=== PATIENT | female | born 1945 | race Caucasian/White ===

== ENCOUNTER 2020-03-06 07:32 | Emergency (ER) | payer OTHER, SELFPAY ==
[2020-03-06 07:44] VITALS: BP 167/86; PULSE 86; RESP 18; TEMP 36.5; O2SAT 95; BMI 21.7
[2020-03-06 07:53] VITALS: BP 163/88; PULSE 74; O2SAT 95
--- NOTE | 2020-03-06 07:59 | ECG_ITS ---
[facility] Test Date: 2020-03-06 Pat Name: Tram Macdonald Department: Room: Gender: Female Online Marketing Coordinator: : 1945 Requested By: Manuela Maki Order Number: [id number] Noni MD: Angela Valentin M.D. Measurements Intervals Roland Rate: 65 P: 84 ME: 207 QRS: -72 QRSD: 130 T: 78 QT: 389 QTc: 405 Interpretive Statements SINUS RHYTHM WITH SINUS ARRHYTHMIA LEFT ANTERIOR FASCICULAR BLOCK [QRS AXIS <= -45, QR IN I, RS IN II] LEFT VENTRICULAR HYPERTROPHY AND ST-T CHANGE [VOLTAGE CRITERIA PLUS ST/T ABNORMALITY] Compared to ECG 11/09/2018 14:44:04 Left anterior fascicular block now present Intraventricular conduction delay no longer present Myocardial infarct finding no longer present ST (T wave) deviation still present Electronically Signed On 03-07-2020 8:26:49 CDT by Angela Valentin M.D. [id number]
--- NOTE | 2020-03-06 08:07 | XRR_ITS ---
PROCEDURE INFORMATION: Exam: XR Chest, 1 View Exam date and time: 03/06/2020 8:39 AM Age: 75 years old Clinical indication: Patient HX: C/O shortness of breath; N/v. Covid + TECHNIQUE: Imaging protocol: XR of the chest Views: 1 view. COMPARISON: CR Chest 1 [place] [id number] 06/28/2014 4:04 AM FINDINGS: Lungs: COPD and interstitial prominence, without acute airspace disease. Pleural space: No pleural effusion. Heart/Mediastinum: No cardiomegaly. Bones/joints: Degenerative change. XR/XR chest 1V portable [id number] IMPRESSION: COPD and interstitial prominence, without acute airspace disease.
--- NOTE | 2020-03-06 08:17 | ED_ITS ---
HPI - General Adult General: Chief complaint: General Medical Stated complaint: COVID+ , SOB N/V Time Seen by Provider: 03/06/20 07:40 History of Present Illness: HPI narrative: This patient is a 75-year-old female who presents today with complaints of weakness, nausea, jitteriness. She has a history of dementia and is accompanied here by her . Her tells me that they both tested positive for COVID on the . They had been sick for a few days before that. He has had very mild symptoms and the patient also has had pretty mild symptoms until today. He tells me that they were tested in [place]. The doctor that called him to give him the test results put them both on prednisone and also put the patient on amoxicillin. The prescription for prednisone is 10 mg tablets and he said for the first couple days they were taking 20 mg 3 times a day. He does not know why they put her on the amoxicillin. She had been doing okay until this morning when she woke up with the symptoms noted above. She denies shortness of breath. She really has not had much cough. Her oxygen saturation is 96% on room air during my history. She is fairly healthy. She has a history of some mild COPD but does not use home oxygen. Onset (ago): hour(s) (Presenting symptoms only started this morning) Associated symptoms: Reports malaise, nausea and weakness; Deny chest pain, cough, dyspnea, headache(s), rash or short of breath Review of Systems General: Reports: 10 or more systems reviewed and unremarkable except in HPI and below Const: Reports: malaise Eyes: Denies: change in vision ENMT: Denies: odynophagia Card: Denies: chest pain or swelling of feet/ankles Resp: Denies: dyspnea GI: Reports: nausea : Denies: flank pain or difficulty voiding Musc: Denies: neck pain or back pain Skin/Breast: Denies: rash Neuro: Denies: headache(s), numbness in extremities or weakness in extremities Antonio/Lymph: Denies: easy bruising or easy bleeding [facility] ED PFSH: Medical History (Updated 03/06/20 @ 11:29 by Manuela Alford MD) Alzheimer's dementia COPD (chronic obstructive pulmonary disease) Hypertension Social History Smoking and tobacco status: never smoked Alcohol intake: never Substance/Drug Use: never Physical Exam Const: COMMON NORMALS: no acute distress, patient oriented x3, no limitations and alert GENERAL APPEARANCE: cooperative and comfortable HENMT: HEAD & SCALP: normal to inspection FACE & SINUS: normal facial exam Eye: GENERAL EYE: appearance normal, both eyes and all related structures Neck/C-Spine: COMMON NORMALS: supple, no meningeal signs and no JVD Chest: COMMONS NORMALS: normal inspection of the chest Resp: COMMON NORMALS: normal respiratory effort, No use of accessory muscles and clear to auscultation bilaterally AUSCULTATION: clear to auscultation bilaterally Cardio: COMMON NORMALS: no JVD, regular rate, regular rhythm and No murmurs present (Cardio) RATE: regular rate RHYTHM: regular rhythm GI: COMMON NORMALS: Normal to inspection, nondistended, normoactive bowel sounds present, Soft to palpation and non-tender INSPECTION: Yes normal to inspection AUSCULTATION: Yes normoactive bowel sounds PALPATION: Yes Soft to palpation Back/Pelvis: COMMON NORMALS: thoracic and lumbar spine normal to inspection Extremity: COMMON NORMALS: normal to inspection Neuro: COMMON NORMALS: patient oriented x3, moves all extremities, no focal motor deficits and no sensory deficits noted SENSORIUM/ORIENTATION: Yes alert MENINGEAL SIGNS: Yes no meningeal signs Psych: COMMON NORMALS: mental status grossly normal, cooperative and normal affect Skin: COMMON NORMALS: no rashes or lesions noted and turgor normal GENERAL SKIN EXAM: no rashes or lesions noted and turgor normal Course ED course: This patient is doing extremely well from a COVID perspective. Her oxygen saturations are good. Her chest x-ray is good. Work-up was negative for any signs of cardiac ischemia. She feels jittery and has some discomfort in her epigastrium. I suspect this is related to the prednisone and I have asked her to stop it. She will follow-up with her primary care doctor. We also discussed things to watch for as far as worsening with the COVID. Vital Signs: Vital signs: Vital Signs Temperature 97.7 F 03/06/20 07:44 Pulse Rate 98 03/06/20 11:49 Respiratory Rate 18 03/06/20 11:49 Blood Pressure 114/89 03/06/20 11:49 Pulse Oximetry 91 03/06/20 11:49 [facility] - General Adult Lab Data: Labs: Lab Results 03/06/20 03/06/20 03/06/20 Range/Units 09:00 09:00 09:14 WBC 7.8 (4.0-10.0) 10^3/ uL RBC 4.50 (4.1-5.3) 10^6/u L Hgb 13.3 (11.5-15.3) g/dL Hct 38.6 (37.0-47.0) % MCV 85.8 (81-99) fL MCH 29.6 (28.0-34.0) pg MCHC 34.5 (30.0-36.0) g/dL RDW 11.9 L (12.1-15.1) % Plt Count 261 (130-400) 10^3/c mm MPV 8.5 (7.4-10.4) fL Neut % (Auto) 62.7 % Lymph % (Auto) 25.7 % [place] % (Auto) 10.8 % Eos % (Auto) 0.3 % Baso % (Auto) 0.1 % Neut # (Auto) 4.86 (1.8-7.7) 10^3/u L Lymph # (Auto) 2.0 (0.8-4.8) 10^3/u L [place] # (Auto) 0.8 (0.2-0.9) 10^3/u L Eos # (Auto) 0.0 (0.0-0.8) 10^3/u L Baso # (Auto) 0.0 (0.0-0.1) 10^3/u L Nucleated RBC % (a uto) 0 % Nucleated RBCs # 0.0 /100WBC PT 13.00 (12.1-14.9) SECO NDS INR 0.95 (0.8-1.2) D-Dimer 0.51 (0-0.59) ug/mIFE U Sodium Cancelled Potassium Cancelled Chloride Cancelled Carbon Dioxide Cancelled Anion Gap Cancelled BUN Cancelled Creatinine Cancelled GFR Calculation Cancelled Glucose Cancelled Calculated Osmolal ity Cancelled Lactic Acid (0.5-2.2) mmol/L Calcium Cancelled Total Bilirubin Cancelled AST Cancelled ALT Cancelled Alkaline Phosphata se Cancelled C-Reactive Protein Cancelled NT-Pro-B Natriuret Pep Cancelled Total Protein Cancelled Albumin Cancelled Globulin Cancelled Procalcitonin Cancelled 03/06/20 03/06/20 Range/Units 09:14 09:14 WBC (4.0-10.0) 10^3/ uL RBC (4.1-5.3) 10^6/u L Hgb (11.5-15.3) g/dL Hct (37.0-47.0) % MCV (81-99) fL MCH (28.0-34.0) pg MCHC (30.0-36.0) g/dL RDW (12.1-15.1) % Plt Count (130-400) 10^3/c mm MPV (7.4-10.4) fL Neut % (Auto) % Lymph % (Auto) % [place] % (Auto) % Eos % (Auto) % Baso % (Auto) % Neut # (Auto) (1.8-7.7) 10^3/u L Lymph # (Auto) (0.8-4.8) 10^3/u L [place] # (Auto) (0.2-0.9) 10^3/u L Eos # (Auto) (0.0-0.8) 10^3/u L Baso # (Auto) (0.0-0.1) 10^3/u L Nucleated RBC % (a uto) % Nucleated RBCs # /100WBC PT (12.1-14.9) SECO NDS INR (0.8-1.2) D-Dimer (0-0.59) ug/mIFE U Sodium 136 Potassium 3.4 L Chloride 97 L Carbon Dioxide 23 Anion Gap 19.4 H BUN 7 L Creatinine 0.6 GFR Calculation Not Reportable Glucose 154 H Calculated Osmolal ity 283 L Lactic Acid 2.2 (0.5-2.2) mmol/L Calcium 8.9 Total Bilirubin 0.5 AST 15 ALT 17 Alkaline Phosphata se 72 C-Reactive Protein 1.7 NT-Pro-B Natriuret Pep 560 H Total Protein 7.1 Albumin 4.1 Globulin 3.0 Procalcitonin 0.06 Discharge Plan Discharge Patient Disposition: Home Clinical Impression: COVID-19 Condition: Stable Prescriptions: No Action nifedipine 30 mg tablet extended release 24hr 30 mg PO DAILY RF: 0 amoxicillin 500 mg capsule 1,000 mg PO TID RF: 0 propafenone 150 mg tablet 150 mg PO TID RF: 0 promethazine-DM 6.25-15 mg/5 mL syrup 5 ml PO Q6H PRN (Reason: Cough) RF: 0 prednisone 10 mg tablet 10 mg PO DIRECTED RF: 0 cyanocobalamin (vitamin B-12) 1,000 mcg/mL solution 1,000 mcg IM Q30D RF: 0 Synthroid 150 mcg tablet 150 mcg PO DAILY RF: 0 digoxin 125 mcg (0.125 mg) tablet 125 mcg PO DAILY RF: 0 memantine 10 mg tablet 10 mg PO BID RF: 0 Dulera 200-5 mcg/actuation HFA aerosol inhaler 2 puff INHALATION BID RF: 0 aspirin 81 mg Tablet,Chewable 81 mg PO DAILY RF: 0 Discharge Orders: Discharge Order (Routine); Ordered 03/06/20 Ordered By: Manuela Alford Discharge Diet: Usual diet Discharge Activity: Resume usual activity Patient Instructions: Viral Syndrome - Adult Activity Restrictions/Additional Instructions: Continue your regular medications. Stop taking the prednisone as that may be causing your symptoms. Return to the ED if increasing shortness of breath or any other new or worsening symptoms. Follow-up with your primary care doctor as recommended. Discharge Date/Time: 03/06/20 11:52 Coding Level of Care Code ED Acquisition Consultant for Kasey Fwmarc Exam Comprehensive
[2020-03-06 09:10] LABS: Basophils % 0.1 %; Eosinophils % 0.3 %; Hematocrit 38.6 % (37.0-47.0); Hemoglobin 13.3 g/dL (11.5-15.3); Lymphocytes % 25.7 %; Mean Corpuscular HGB Conc 34.5 g/dL (30.0-36.0); Mean Corpuscular Hemoglobin 29.6 pg (28.0-34.0); Mean Corpuscular Volume 85.8 fL (81-99); Mean Platelet Volume 8.5 fL (7.4-10.4); Monocytes # 0.8 10^3/uL (0.2-0.9); Monocytes % 10.8 %; Neutrophils # 4.86 10^3/uL (1.8-7.7); Neutrophils % 62.7 %; Nucleated Red Blood Cells % 0 %; Platelet Count 261 10^3/cmm (130-400); Red Cell Distribution Width 11.9 % (12.1-15.1); White Blood Count 7.8 10^3/uL (4.0-10.0)
[2020-03-06 09:50] LABS: Lactic Sepsis W/Reflex 2.2 mmol/L (0.5-2.2)
[2020-03-06 09:56] LABS: INR 0.95 (0.8-1.2)
[2020-03-06 09:58] LABS: NT Pro B Type Natriuretic Pept 560 pg/mL (0-450); Procalcitonin 0.06 ng/mL (0-0.5)
[2020-03-06 09:59] LABS: D Dimer 0.51 ug/mIFEU (0-0.59)
[2020-03-06 10:09] LABS: Alanine Aminotransferase 17 U/L (0-33); Albumin Level 4.1 g/dL (3.5-5.2); Alkaline Phosphatase 72 IU/L (35-105); Anion Gap 19.4 (5-19); Aspartate Amino Transferase 15 U/L (0-32); Blood Urea Nitrogen 7 mg/dL (8-23); C Reactive Protein 1.7 mg/L (0.0-4.9); Calcium 8.9 mg/dL (8.5-10.5); Carbon Dioxide 23 mmol/L (22-29); Chloride 97 mmol/L (98-107); Glucose 154 mg/dL (65-115); Osmolality Calculated 283 mOsm/kg (285-295); Potassium 3.4 mmol/L (3.5-5.1); Sodium 136 mmol/L (136-145); Total Bilirubin 0.5 mg/dL (0.15-1.2); Total Protein 7.1 g/dL (6.6-8.7)
[2020-03-06 10:19] VITALS: BP 159/73; PULSE 73; RESP 18; O2SAT 95
[2020-03-06 11:20] LABS: Reflex Lactate Order REFLEX LACTIC ORDERD
[2020-03-06 11:49] VITALS: BP 114/89; PULSE 98; RESP 18; O2SAT 91
== END 2020-03-06 11:52 | disposition home or self-care (01) ==
PROVIDERS: Emergency Provider Emergency Medicine
DX: U07.1 COVID-19 (principal); Z79.82 Long term (current) use of aspirin; G30.9 Alzheimer's disease, unspecified; F02.80 Dementia in other diseases classified elsewhere, unspecified severity, without behavioral disturbance, psychotic disturbance, mood disturbance, and anxiety
CPT/HCPCS: 12345; 36415; 71045; 80053; 83605; 83880; 84145; 85025; 85378; 85610; 86140; 87040; 93005; 99283; 99284

== ENCOUNTER 2021-11-25 19:47 | Emergency (ER) | payer OTHER, SELFPAY ==
[2021-11-25 20:11] VITALS: BP 124/71; PULSE 62; RESP 12; TEMP 36.4; O2SAT 97; BMI 18.4
--- NOTE | 2021-11-25 21:45 | XRR_ITS ---
PROCEDURE INFORMATION: Exam: XR Chest Exam date and time: 11/25/2021 10:16 PM Age: 76 years old Clinical indication: Cough TECHNIQUE: Imaging protocol: XR of the chest. Views: 1 view. COMPARISON: CR XR chest 1V portable [id number] 03/06/2020 8:44 AM FINDINGS: Lungs: Unremarkable. No consolidation. Pleural spaces: Unremarkable. No pleural effusion. No pneumothorax. Heart/Mediastinum: Unremarkable. No cardiomegaly. Bones/joints: Unremarkable. XR/XR chest 1V portable [id number] IMPRESSION: No acute findings.
--- NOTE | 2021-11-25 21:46 | W.ED.GENADLT ---
HPI - General Adult General: Chief complaint: General Medical Stated complaint: fb in throat Time Seen by Provider: 11/25/21 21:39 Source: patient Mode of arrival: ambulatory Limitations: no limitations History of Present Illness: 76-year-old female who states that she was eating hamburger and states it feels like she may have had something stuck. States she also had coughing but had a cough last 2 weeks denies any shortness of breath states she still feels like there may be something stuck in her throat she has not tried to eat or drink anything though. Denies any vomiting. Associated symptoms: Deny chest pain, headache(s), nausea, rash or vomiting Review of Systems Const: Denies: fever(s), chills, body aches or change in appetite Eyes: Denies: blurry vision or eye discomfort ENMT: Reports: throat pain and odynophagia Card: Denies: chest pain Resp: Reports: non-productive cough GI: Denies: abdominal pain, nausea, vomiting or diarrhea : Denies: dysuria Musc: Denies: neck pain or back pain Skin/Breast: Denies: rash Neuro: Denies: headache(s) Psych: Denies: depression Antonio/Lymph: Denies: easy bruising All/Imm: Denies: urticaria PFSH ED PFSH: Medical History Alzheimer's dementia COPD (chronic obstructive pulmonary disease) Hypertension Social History Smoking and tobacco status: never smoked Alcohol intake: never Physical Exam Const: COMMON NORMALS: no acute distress, patient oriented x3 and healthy appearing HENMT: COMMON NORMALS: normocephalic and atraumatic HEAD & SCALP: normocephalic and atraumatic Eye: COMMON NORMALS: Equal, round and reactive pupils present and EOMs intact bilaterally PUPIL: Yes Equal, round and reactive pupils present Neck/C-Spine: COMMON NORMALS: full ROM and supple Chest: COMMONS NORMALS: normal inspection of the chest and normal palpation of entire chest wall Resp: COMMON NORMALS: normal respiratory effort, No retractions, No use of accessory muscles and clear to auscultation bilaterally AUSCULTATION: clear to auscultation bilaterally Cardio: COMMON NORMALS: regular rate, regular rhythm and No murmurs present (Cardio) RATE: regular rate RHYTHM: regular rhythm GI: COMMON NORMALS: Normal to inspection, nondistended, normoactive bowel sounds present, Soft to palpation, non-tender and no masses PALPATION: Yes Soft to palpation Extremity: COMMON NORMALS: normal to inspection and full ROM Neuro: COMMON NORMALS: patient oriented x3, moves all extremities and no focal motor deficits Psych: COMMON NORMALS: mental status grossly normal, Normal thought process present and cooperative THOUGHT PROCESS: Normal thought process present Skin: COMMON NORMALS: no rashes or lesions noted and no wounds GENERAL SKIN EXAM: no rashes or lesions noted Course Vital Signs: Vital signs: Vital Signs Temperature 97.6 F 11/25/21 20:11 Pulse Rate 71 11/25/21 22:00 Respiratory Rate 18 11/25/21 21:51 Blood Pressure 114/59 11/25/21 22:00 Pulse Oximetry 96 11/25/21 22:00 MDM - General Adult Medical Decision Making Patient presents here with globus sensation in her throat she is concerned she could have had a foreign body CT here shows no signs of foreign body she does feel improved he should be able to swallow liquids out any problem. She has had a chronic cough chest x-ray is normal as well she is stable for discharge is to follow-up PCP and return if worsening she understands agrees to plan. Lab Data Radiology Impressions Chest X-Ray 11/25/21 21:45 IMPRESSION: No acute findings. Neck CT 11/25/21 22:41 IMPRESSION: No acute findings. There is no evidence for foreign body. Discharge Plan Discharge Patient Disposition: Home Clinical Impression: Globus sensation Condition: Stable Prescriptions: No Action cephalexin 500 mg capsule 500 mg PO TID 10 Days Qty: 30 0RF nifedipine 30 mg tablet extended release 24hr 30 mg PO DAILY 0RF amoxicillin 500 mg capsule 1,000 mg PO TID 0RF Rx Instructions: x 5 days propafenone 150 mg tablet 150 mg PO TID 0RF promethazine-DM 6.25-15 mg/5 mL syrup 5 ml PO Q6H PRN (Reason: Cough) 0RF prednisone 10 mg tablet 10 mg PO DIRECTED 0RF cyanocobalamin (vitamin B-12) 1,000 mcg/mL solution 1,000 mcg IM Q30D 0RF Synthroid 150 mcg tablet 150 mcg PO DAILY 0RF digoxin 125 mcg (0.125 mg) tablet 125 mcg PO DAILY 0RF memantine 10 mg tablet 10 mg PO BID 0RF Dulera 200-5 mcg/actuation HFA aerosol inhaler 2 puff INHALATION BID 0RF aspirin 81 mg Tablet,Chewable 81 mg PO DAILY 0RF Discharge Orders: Discharge ED (Routine); Ordered 11/25/21 Ordered By: Kait Norris Referrals: Matias,SILVIA MendozaN [Primary Care Provider] - 1-3 days Discharge Diet: Advance as tolerated Discharge Activity: Use walker/crutches as instructed Patient Instructions: Dysphagia (ED) Coding Level of Care Code ED Skiver Machine Operator for Chg Fwd Exam Comprehensive
[2021-11-25 21:51] VITALS: BP 142/78; PULSE 65; RESP 18; O2SAT 97
[2021-11-25] MEDS: nitroglycerin 0.4 mg sublingual Tablet SUBLINGUAL (21:54)
[2021-11-25 22:00] VITALS: BP 114/59; PULSE 71; O2SAT 96
--- NOTE | 2021-11-25 22:41 | CTR_ITS ---
PROCEDURE INFORMATION: Exam: CT Neck Without Contrast Exam date and time: 11/25/2021 11:06 PM Age: 76 years old Clinical indication: Other: Fb; Patient HX: Patient states feels like a piece of bread she ate is stuck in her throat. ; Additional info: Fb sensation in throat after eating TECHNIQUE: Imaging protocol: Computed tomography images of the neck without contrast. Radiation optimization: All CT scans at this facility use at least one of these dose optimization techniques: automated exposure control; mA and/or kV adjustment per patient size (includes targeted exams where dose is matched to clinical indication); or iterative reconstruction. COMPARISON: CR (CHEST, ) 11/25/2021 10:16 PM RADIATION DOSE METRICS: Total DLP (mGy-cm): 251.67 FINDINGS: Pharynx: Unremarkable. No significant tonsillar enlargement. Larynx: Unremarkable. Epiglottis is normal. Prevertebral and retropharyngeal spaces: Unremarkable. Parotid and submandibular glands: Normal. Glands are normal in size. Thyroid: Normal. No enlarged or calcified nodules. Lymph nodes: Unremarkable. No lymphadenopathy. Trachea: Visualized trachea is unremarkable. Lungs: Unremarkable as visualized. Bones/joints: Unremarkable. No acute fracture. Soft tissues: Unremarkable. No significant soft tissue swelling. CT/CT neck wo con [id number] IMPRESSION: No acute findings. There is no evidence for foreign body.
[2021-11-25 23:30] VITALS: BP 118/67; PULSE 66; RESP 18; O2SAT 95
== END 2021-11-25 23:31 | disposition home or self-care (01) ==
PROVIDERS: Emergency Provider Emergency Medicine; PCP Nurse Practitioner Family
DX: F45.8 Other somatoform disorders (principal); R05.9 Cough, unspecified
CPT/HCPCS: 70490; 71045; 96372; 99283; J1610

== ENCOUNTER 2022-01-12 15:53 | Outpatient (CLI) | payer OTHER, SELFPAY ==
--- NOTE | 2022-01-12 15:59 | CT_ITS ---
WS: [id number] CT NECK TECHNIQUE: Contrast-enhanced CT of the neck with coronal and sagittal reformatted images. CLINICAL INFORMATION: DYSPHAGIA COMPARISON: November 25, 2021 DLP: 151.[address] scans at [facility] use at least one of these dose optimization techniques: automated e xposure control; mA and/or kV adjustment per patient size (includes targeted exams where dose is matc hed to clinical indication); or iterative reconstruction. FINDINGS: Dental artifact degrades images at the tongue base. Normal parotid glands. Normal submandibular gland s. Normal posterior nasopharynx. Normal parapharyngeal fat. No evidence of supraglottic or glottic ma ss. Normal piriform sinuses. Normal vocal folds and vocal cords. Subglottic airway is patent. No airw ay narrowing. Mastoid air cells are aerated. Partially visualized paranasal sinuses are well aerated. No cervical l ymphadenopathy. Emphysematous changes in the lung apices. Mild spondylitic changes cervical spine. Mi ld disc bulging C3-C4 and C4-C5. CT/CT neck w con* [id number] IMPRESSION: 1. No evidence of supraglottic or glottic mass. Subglottic airway is patent. N o airway narrowing. 2. Normal posterior nasopharynx and parapharyngeal fat. 3. No cervical lymphadenopathy. 4. No suspicious findings. 5. No changes since November 25, 2021.
[2022-01-12 16:39] LABS: Blood Urea Nitrogen 10 mg/dL (8-23)
[2022-01-12] MEDS: iohexol 350 mg/mL 100 mL Btl IV (16:59)
== END 2022-01-12 15:54 | disposition home or self-care (01) ==
PROVIDERS: PCP Nurse Practitioner Family; Visit Provider Specialist
DX: R13.10 Dysphagia, unspecified (principal)
CPT/HCPCS: 70491; 82565; 84520

== ENCOUNTER 2022-01-14 10:00 | Outpatient (CLI) | payer OTHER, SELFPAY ==
--- NOTE | 2022-01-14 10:17 | FL_ITS ---
WS: [id number] Exam: FL barium swallow modifd [id number] Date/Time of Exam: 01/14/2022 11:22 AM Reason For Exam: Other dysphagia Fluoroscopy time: 3min [id number] minutes # of spot films: 1 Modified barium swallow is performed in conjunction with the speech therapy service. The patient experienced mild laryngeal penetration when ingesting thin liquid barium. No aspiration w as noted. The patient tolerated nectar consistency, pudding consistency and solid barium mixture food stuffs without difficulty. The patient ingested the barium pill without complication. Mild dysfunctio n at the level of the oropharynx initiating the swallowing process. FL/FL barium swallow modifd [id number] IMPRESSION: 1. The patient experienced mild penetration into the laryngeal inlet when inges ting thin liquid barium. Mild dysfunction at the level of the oropharynx initia ting the swallowing process. 2. No aspiration and no other significant finding. A separate report of recommendations and findings will follow from the speech t herapy department.
== END 2022-01-14 10:01 | disposition home or self-care (01) ==
PROVIDERS: PCP Nurse Practitioner Family; Visit Provider Specialist
DX: R13.19 Other dysphagia (principal)
CPT/HCPCS: 74230; 92611

== ENCOUNTER 2022-01-27 08:00 | Outpatient (CLI) | payer OTHER, SELFPAY ==
--- NOTE | 2022-01-27 08:18 | FL_ITS ---
WS: [id number] FL barium swallow [id number] REASON FOR EXAM: DYSPHAGIA FLUOROSCOPY TIME: 2min [id number] # OF SPOT FILMS: 6 TECHNIQUE: Swallowing of barium was evaluated with the patient in the upright and prone LOU positions. Multiple swallows were evaluated fluoroscopically and with multiple rapid sequence spot films to evaluate aly lity. FINDINGS: Normal function of the oral and hypopharynx with no aspiration. Intermittent loss of the primary peristaltic wave in the esophagus with retention of contrast and occ asional retrograde reflux. Intermittent tertiary contractions. Retained barium was cleared with addit ional dry swallows. Small sliding hiatal hernia with no significant Schatzki ring and no stricture. No significant reflux elicited. FL/FL barium swallow [id number] IMPRESSION: Mild to moderate esophageal dysmotility as above.
== END 2022-01-27 08:01 | disposition home or self-care (01) ==
LOC: RAD 08:02
PROVIDERS: PCP Nurse Practitioner Family; Visit Provider Specialist
DX: R13.10 Dysphagia, unspecified (principal)
CPT/HCPCS: 74220

== ENCOUNTER 2022-02-08 17:02 | Inpatient (IN) | payer MEDICARE, SELFPAY ==
[2022-02-08] VITALS (12 sets, daily range): BP systolic 103–117; BP diastolic 41–68; PULSE 59–81; RESP 15–24; TEMP 36.4–37; O2SAT 96–99
--- NOTE | 2022-02-08 17:10 | XRR_ITS ---
PROCEDURE INFORMATION: Exam: XR Right Knee Exam date and time: 02/08/2022 5:57 PM Age: 76 years old Clinical indication: Injury or trauma; Fall; Blunt trauma; Hip and knee; Right; Additional info: Trauma/fall TECHNIQUE: Imaging protocol: Radiologic exam of the Right knee. Views: 3 views. COMPARISON: No relevant prior studies available. FINDINGS: Bones/joints: Normal. No knee effusion. Soft tissues: Normal. Vasculature: Arterial calcifications. XR/XR knee RT 3V* [id number] IMPRESSION: No acute findings.
--- NOTE | 2022-02-08 17:10 | XRR_ITS ---
PROCEDURE INFORMATION: Exam: XR Right Hip Exam date and time: 02/08/2022 5:54 PM Age: 76 years old Clinical indication: Injury or trauma; Fall; Blunt trauma (contusions or hematomas) and fracture of pelvis & hip; Right; Traumatic fracture; Neck of femur; Not specified; Additional info: Trauma/fall TECHNIQUE: Imaging protocol: Radiologic exam of the Right hip. Views: 1 view hip with pelvis when performed. COMPARISON: CT kidney stone [id number] 06/09/2017 12:29 AM FINDINGS: Bones/joints: Comminuted displaced right intertrochanteric femur fracture with varus angulation. Soft tissues: Unremarkable. Gastrointestinal tract: Radiopaque material within the appendix and distal colon. XR/XR hip RT 2-3V wo/w pel* [id number] IMPRESSION: 1. Comminuted displaced right intertrochanteric femur fracture.
--- NOTE | 2022-02-08 17:11 | CTR_ITS ---
PROCEDURE INFORMATION: Exam: CT Head Without Contrast Exam date and time: 02/08/2022 5:57 PM Age: 76 years old Clinical indication: Injury or trauma; Fall; Blunt trauma (contusions or hematomas) TECHNIQUE: Imaging protocol: Computed tomography of the head without contrast. Radiation optimization: All CT scans at this facility use at least one of these dose optimization techniques: automated exposure control; mA and/or kV adjustment per patient size (includes targeted exams where dose is matched to clinical indication); or iterative reconstruction. COMPARISON: CT neck w con* [id number] 01/12/2022 4:49 PM RADIATION DOSE METRICS: Total DLP (mGy-cm): 936.38 FINDINGS: Brain: There is moderate cerebral atrophy. No significant white matter disease. No intracranial hemorrhage. No intracranial mass. Negative for midline shift of brain. Negative for mass effect on the brain. Left parietal lobe subcortical white matter encephalomalacia. Cerebral ventricles: No ventriculomegaly. Paranasal sinuses: Visualized sinuses are unremarkable. No fluid levels. Mastoid air cells: Visualized mastoid air cells are well aerated. Bones/joints: Unremarkable. No acute fracture. Soft tissues: Unremarkable. CT/CT head wo con* [id number] IMPRESSION: Negative for acute intracranial abnormality.
--- NOTE | 2022-02-08 17:11 | CTR_ITS ---
PROCEDURE INFORMATION: Exam: CT Cervical Spine Without Contrast Exam date and time: 02/08/2022 5:59 PM Age: 76 years old Clinical indication: Injury or trauma; Fall; Blunt trauma; Additional info: Trauma/fall TECHNIQUE: Imaging protocol: Computed tomography of the cervical spine without contrast. Radiation optimization: All CT scans at this facility use at least one of these dose optimization techniques: automated exposure control; mA and/or kV adjustment per patient size (includes targeted exams where dose is matched to clinical indication); or iterative reconstruction. COMPARISON: CT neck w con* [id number] 01/12/2022 4:49 PM RADIATION DOSE METRICS: Total DLP (mGy-cm): 155.17 FINDINGS: Bones/joints: No acute fracture. Normal alignment. Discs/Spinal canal/Neural foramina: The cervical spine demonstrates moderate degenerative changes at multiple levels. Lungs: Lung apices are normal. Soft tissues: Unremarkable. CT/CT cervical spin wo con* [id number] IMPRESSION: Negative for acute cervical spine injury.
--- NOTE | 2022-02-08 17:11 | XRR_ITS ---
PROCEDURE INFORMATION: Exam: XR Chest Exam date and time: 02/08/2022 6:03 PM Age: 76 years old Clinical indication: Pre-operative exam; Cardiovascular screening and respiratory screening exam; Additional info: Fall/ FX R hip TECHNIQUE: Imaging protocol: Radiologic exam of the chest. Views: 1 view. COMPARISON: CR XR chest 1V portable [id number] 11/25/2021 10:16 PM FINDINGS: Lungs: Linear and patchy opacities in the medial left lung base. The lungs are otherwise clear. Probable emphysema. Pleural spaces: Unremarkable. No pleural effusion. No pneumothorax. Heart/Mediastinum: Unremarkable. No cardiomegaly. Bones/joints: Unremarkable. XR/XR chest 1V portable [id number] IMPRESSION: Atelectasis versus scarring or possible pneumonia in the medial left base.
--- NOTE | 2022-02-08 17:11 | W.ED.FALL ---
HPI - Fall General: Chief Complaint: Fall Stated Complaint: FALL/ HIP AND KNEE PAIN Time Seen by Provider: 02/08/22 17:04 Source: patient, family () and EMS Mode of arrival: EMS Limitations: other (dementia ) History of Present Illness: Patient is a 76-year-old female presents to ED today via EMS for evaluation following a fall. EMS states that fall was unwitnessed. Patient herself has severe dementia and is not able to tell me much in regards to the fall. shortly later arrives and provides further history. He states his was outside and he heard her fall. She did not appear to have any loss of consciousness. Patient was unable to ambulate following the fall and complained of significant right hip pain. states patient is normally ambulatory around the house but does sometimes require the 's assistance. states patient's PMH is significant for dementia, atrial fibrillation, and HTN. Patient herself is not complaining of lightheadedness, dizziness, chest pain, shortness of breath, or difficulty breathing however accuracy of any form of history is significantly limited secondary to her dementia. According to the current meds include synthroid, digoxin, nifedipine, and namenda, and profafenone. complaint: fall Onset (ago): hour(s) Fall from: standing Fall witnessed: no Place fall occurred: home Loss of consciousness: None Prolonged down time: no Symptoms prior to fall: other (unknown) Context: other (unknown ) Location of injury: other (R hip) Severity: severe Review of Systems General: Reports: ROS unobtainable due to mental status [facility] ED PFSH: Medical History (Updated 02/08/22 @ 19:40 by BANDAR Mansfield) Alzheimer's dementia COPD (chronic obstructive pulmonary disease) Fracture, intertrochanteric, right femur Hypertension Social History Smoking and tobacco status: never smoked Alcohol intake: never Physical Exam Const: COMMON NORMALS: alert and well nourished GENERAL APPEARANCE: cooperative ORIENTATION/CONSCIOUSNESS: Yes awake and Yes oriented to person OTHER: at mental baseline per HENMT: COMMON NORMALS: normocephalic and atraumatic HEAD & SCALP: normal to inspection, normocephalic and atraumatic Neck/C-Spine: COMMON NORMALS: full ROM CERVICAL SPINE: Yes cervical ROM normal, No pain with cervical ROM, No Cervical spine tenderness, No step off deformity and No Paracervical muscle tenderness Resp: COMMON NORMALS: normal respiratory effort and clear to auscultation bilaterally AUSCULTATION: clear to auscultation bilaterally Cardio: COMMON NORMALS: regular rate RATE: regular rate RHYTHM: abnormal rhythm GI: COMMON NORMALS: Normal to inspection, nondistended, normoactive bowel sounds present, Soft to palpation and non-tender PALPATION: Yes Soft to palpation Back/Pelvis: COMMON NORMALS: thoracic and lumbar spine normal to inspection, no thoracic nor lumbar tenderness and thoraco-lumbar ROM normal Extremity: COMMON NORMALS: capillary refill normal GENERAL: Yes normal exam except as noted RIGHT LOWER EXTREMITY: Yes hip joint OTHER: pt has obvious deformity to R hip; leg is currently held in internal rotation; she is not able to move it much due to significant pain; sensory intact; distal pulses/cap refill normal Neuro: CHAD COMA SCALE: document GCS findings Chad coma scale eye opening: Spontaneous Chad coma scale verbal response: Orientated Chad coma scale motor response: Obey commands [place] coma scale total score: 15 COMMON NORMALS: moves all extremities, no focal motor deficits and no sensory deficits noted SENSORIUM/ORIENTATION: Yes alert and Yes oriented to person GAIT: Yes Unable to assess gait Skin: COMMON NORMALS: no rashes or lesions noted GENERAL SKIN EXAM: no rashes or lesions noted TRAUMA: no lacerations or abrasions Course Consultations: Consultation #1: Dr. Cruz-recommends one view pelvis, two view femur, have patient continue to be non-weight bearing, NPO at midnight, discontinuing any anticoagulants, and plan for OR tomorrow Consultation #2: Dr. Mcmahon-will admit patient-recommends medsurg with tele Vital Signs: Vital signs: Vital Signs Temperature 97.6 F 02/08/22 17:06 Pulse Rate 72 02/08/22 18:15 Respiratory Rate 16 02/08/22 18:30 Blood Pressure 117/58 02/08/22 18:30 Pulse Oximetry 99 02/08/22 18:15 MDM - Fall Medical Decision Making Patient is a 76-year-old female unwitnessed fall here with her . Patient has a right comminuted displaced intertrochanter fracture. Spoke to Dr. Cruz who will consult on patient and plan for OR tomorrow. Dr. Mcmahon will admit. Dr. Norris will write admit orders. Lab Data : 02/08/22 18:00 02/08/22 18:00 Radiology Impressions Hip/Pelvis X-Ray 02/08/22 17:10 IMPRESSION: 1. Comminuted displaced right intertrochanteric femur fracture. Knee X-Ray 02/08/22 17:10 IMPRESSION: No acute findings. Cervical Spine CT 02/08/22 17:11 IMPRESSION: Negative for acute cervical spine injury. Chest X-Ray 02/08/22 17:11 IMPRESSION: Atelectasis versus scarring or possible pneumonia in the medial left base. Head CT 02/08/22 17:11 IMPRESSION: Negative for acute intracranial abnormality. Laboratory Results WBC 17.0 10^3/uL (4.0-10.0) H 02/08/22 18:00 RBC 4.33 10^6/uL (4.1-5.3) 02/08/22 18:00 Hgb 13.1 g/dL (11.5-15.3) 02/08/22 18:00 Hct 43.8 % (37.0-47.0) 02/08/22 18:00 MCV 101.2 fl (81-99) H 02/08/22 18:00 MCH 30.3 pg (28.0-34.0) 02/08/22 18:00 MCHC 29.9 g/dL (30.0-36.0) L 02/08/22 18:00 RDW 13.0 % (12.1-15.1) 02/08/22 18:00 Plt Count 115 10^3/cmm (130-400) L 02/08/22 18:00 MPV 9.8 fL (7.4-10.4) 02/08/22 18:00 Neut % (Auto) 75.7 % 02/08/22 18:00 Lymph % (Auto) 15.1 % 02/08/22 18:00 [place] % (Auto) 7.8 % 02/08/22 18:00 Eos % (Auto) 0.4 % 02/08/22 18:00 Baso % (Auto) 0.4 % 02/08/22 18:00 Neut # (Auto) 12.85 10^3/uL (1.8-7.7) H 02/08/22 18:00 Lymph # (Auto) 2.6 10^3/uL (0.8-4.8) 02/08/22 18:00 [place] # (Auto) 1.3 10^3/uL (0.2-0.9) H 02/08/22 18:00 Eos # (Auto) 0.1 10^3/uL (0.0-0.8) 02/08/22 18:00 Baso # (Auto) 0.1 10^3/uL (0.0-0.1) 02/08/22 18:00 Nucleated RBC % (auto) 0 % 02/08/22 18:00 Nucleated RBCs # 0.0 /100WBC 02/08/22 18:00 Sodium 135 mmol/L (136-145) L 02/08/22 18:00 Potassium 4.6 mmol/L (3.5-5.1) 02/08/22 18:00 Chloride 98 mmol/L (98-107) 02/08/22 18:00 Carbon Dioxide 23 mmol/L (22-29) 02/08/22 18:00 Anion Gap 18.6 (5-19) 02/08/22 18:00 BUN 12 mg/dL (8-23) 02/08/22 18:00 Creatinine 0.9 mg/dL (0.5-0.9) 02/08/22 18:00 GFR Calculation Not Reportable 02/08/22 18:00 Glucose 188 mg/dL (65-115) H 02/08/22 18:00 Calculated Osmolality 285 mOsm/kg (285-295) 02/08/22 18:00 Calcium 9.4 mg/dL (8.5-10.5) 02/08/22 18:00 Total Bilirubin 0.4 mg/dL (0.15-1.2) 02/08/22 18:00 AST 13 U/L (0-32) 02/08/22 18:00 ALT 14 U/L (0-33) 02/08/22 18:00 Alkaline Phosphatase 76 U/L (35-105) 02/08/22 18:00 Troponin T Baseline 10 ng/L (0-10) 02/08/22 18:00 Total Protein 6.0 g/dL (6.6-8.7) L 02/08/22 18:00 Albumin 4.1 g/dL (3.5-5.2) 02/08/22 18:00 Globulin 1.9 g/dL (1.3-4.6) 02/08/22 18:00 Urine Color Yellow (Yellow) 02/08/22 18:35 Urine Appearance Clear (CLEAR) 02/08/22 18:35 Urine pH 6 (5-7) 02/08/22 18:35 Ur Specific [place] 1.015 (1.005-1.030) 02/08/22 18:35 Urine Protein Neg (Negative) 02/08/22 18:35 Urine Glucose (UA) Norm (Normal) 02/08/22 18:35 Urine Ketones Negative (Negative) 02/08/22 18:35 Urine Blood Neg (Negative) 02/08/22 18:35 Urine Nitrate Negative (Negative) 02/08/22 18:35 Urine Bilirubin 1+ (Negative) H 02/08/22 18:35 Urine Urobilinogen 4 mg/dL (Negative) H 02/08/22 18:35 Ur Leukocyte Esterase Negative (Negative) 02/08/22 18:35 Discharge Plan Discharge Patient Disposition: Admitted As Inpatient Clinical Impression: Alzheimer's dementia, Fracture, intertrochanteric, right femur Condition: Stable Prescriptions: No Action cephalexin 500 mg capsule 500 mg PO TID 10 Days Qty: 30 0RF nifedipine 30 mg tablet extended release 24hr 30 mg PO DAILY amoxicillin 500 mg capsule 1,000 mg PO TID Rx Instructions: x 5 days propafenone 150 mg tablet 150 mg PO TID promethazine-DM 6.25-15 mg/5 mL syrup 5 ml PO Q6H PRN (Reason: Cough) prednisone 10 mg tablet 10 mg PO DIRECTED cyanocobalamin (vitamin B-12) 1,000 mcg/mL solution 1,000 mcg IM Q30D Synthroid 150 mcg tablet 150 mcg PO DAILY digoxin 125 mcg (0.125 mg) tablet 125 mcg PO DAILY memantine 10 mg tablet 10 mg PO BID Dulera 200-5 mcg/actuation HFA aerosol inhaler 2 puff INHALATION BID aspirin 81 mg Tablet,Chewable 81 mg PO DAILY Referrals: Matias,MIKE Mnedoza [Primary Care Provider] - Coding Level of Care Code ED Telephone Diaphragm Assembler for Chg Fwd Exam Comprehensive
--- NOTE | 2022-02-08 17:21 | PC.NURSE ---
per EMS, pt has alzheimers. called EMS for a fall. Pt c/o right hip pain and unable to move right leg. Pt reports pain is worse than having a baby. Pt resting with right leg bent at knee, unable to assess for shortening or rotation. pedal pulses palpable. pt is alert and oriented to person and place. PERRL. air pollution inspector equal. strength equal and WNL for BUE. Pt speech clear. speaking in complete sentences without difficulty. Skin pink/warm/dry.
[2022-02-08 18:36] LABS: Basophils # 0.1 10^3/uL (0.0-0.1); Basophils % 0.4 %; Eosinophils # 0.1 10^3/uL (0.0-0.8); Eosinophils % 0.4 %; Hematocrit 43.8 % (37.0-47.0); Hemoglobin 13.1 g/dL (11.5-15.3); Lymphocytes # 2.6 10^3/uL (0.8-4.8); Lymphocytes % 15.1 %; Mean Corpuscular HGB Conc 29.9 g/dL (30.0-36.0); Mean Corpuscular Hemoglobin 30.3 pg (28.0-34.0); Mean Corpuscular Volume 101.2 fl (81-99); Mean Platelet Volume 9.8 fL (7.4-10.4); Monocytes # 1.3 10^3/uL (0.2-0.9); Monocytes % 7.8 %; Neutrophils # 12.85 10^3/uL (1.8-7.7); Neutrophils % 75.7 %; Nucleated Red Blood Cells % 0 %; Platelet Count 115 10^3/cmm (130-400); Red Blood Count 4.33 10^6/uL (4.1-5.3)
[2022-02-08 18:40] LABS: Add Urine Microscopic? NO; Charge for UA Resulting for Rev
[2022-02-08 18:43] LABS: Bilirubin Urine 1+ (Negative); Blood Urine Neg (Negative); Glucose Urine UA Norm (Normal); Ketones Urine Negative (Negative); Leukocyte Esterase Urine Negative (Negative); Protein Urine Neg (Negative); Specific Gravity, Urine 1.015 (1.005-1.030); Urine Appearance Clear (CLEAR); Urine Color Yellow (Yellow); Urobilinogen Urine 4 mg/dL (Negative); pH Urine 6 (5-7)
[2022-02-08 18:54] LABS: Nitrate Urine Negative (Negative)
--- NOTE | 2022-02-08 18:59 | PC.NURSE ---
Report given to JACKY Grace
--- NOTE | 2022-02-08 19:00 | XRR_ITS ---
PROCEDURE INFORMATION: Exam: XR Right Femur Exam date and time: 02/08/2022 7:17 PM Age: 76 years old Clinical indication: Pain; Hip; Right; Additional info: Fall/trauma, ortho request TECHNIQUE: Imaging protocol: Radiologic exam of the Right femur. Views: 2 views. COMPARISON: CR (PELVIS, ) 02/08/2022 7:15 PM FINDINGS: Bones/joints: Comminuted displaced right intertrochanteric femur fracture with varus angulation. Soft tissues: Unremarkable. Vasculature: Arterial calcifications. The right hip and knee joints appear intact. XR/XR femur RT min 2V* [id number] IMPRESSION: Comminuted right intertrochanteric femur fracture.
--- NOTE | 2022-02-08 19:00 | XRR_ITS ---
PROCEDURE INFORMATION: Exam: XR Pelvis Exam date and time: 02/08/2022 7:15 PM Age: 76 years old Clinical indication: Hip pain; Right hip; Additional info: Fall/trauma TECHNIQUE: Imaging protocol: Radiologic exam of the pelvis. Views: 1 or 2 view. COMPARISON: CR XR hip RT 2-3V wo/w pel* [id number] 02/08/2022 5:54 PM FINDINGS: Bones/joints: Comminuted displaced right intertrochanteric femur fracture with varus angulation. The visualized bony pelvis appears intact. Portions of the sacrum and left iliac bone are obscured by contents in the colon. Soft tissues: Unremarkable. Gastrointestinal tract: Radiopaque material in the appendix and colon. XR/XR pelvis 1-2V* [id number] IMPRESSION: Comminuted right intertrochanteric femur fracture.
[2022-02-08 19:07] LABS: Troponin(5th) Baseline 10 ng/L (0-10)
[2022-02-08 19:11] LABS: Alanine Aminotransferase 14 U/L (0-33); Albumin Level 4.1 g/dL (3.5-5.2); Alkaline Phosphatase 76 U/L (35-105); Anion Gap 18.6 (5-19); Aspartate Amino Transferase 13 U/L (0-32); Blood Urea Nitrogen 12 mg/dL (8-23); Calcium 9.4 mg/dL (8.5-10.5); Carbon Dioxide 23 mmol/L (22-29); Chloride 98 mmol/L (98-107); Globulin 1.9 g/dL (1.3-4.6); Glucose 188 mg/dL (65-115); Osmolality Calculated 285 mOsm/kg (285-295); Potassium 4.6 mmol/L (3.5-5.1); Sodium 135 mmol/L (136-145); Total Bilirubin 0.4 mg/dL (0.15-1.2)
--- NOTE | 2022-02-08 19:11 | ECG_ITS ---
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 Measurements Intervals [place] Rate: 71 P: 83 WI: 179 QRS: -81 QRSD: 125 T: 87 QT: 403 QTc: 441 Interpretive Statements SINUS RHYTHM Compared to ECG 03/06/2020 08:01:35 Sinus rhythm no longer present Sinus arrhythmia no longer present Left anterior fascicular block no longer present Left ventricular hypertrophy no longer present ST (T wave) deviation no longer present Electronically Signed On 02-09-2022 0:18:53 CDT by Reginaldo Acuña M.D. [id number]
--- NOTE | 2022-02-08 19:23 | PC.NURSE ---
Okay to eat and drink per Basilia, keep NPO after midnight
--- NOTE | 2022-02-08 19:28 | P.PN_ITS ---
Subjective Subjective: Orthopedic note: Case discussed with ED provider, and chart reviewed. Patient was not seen and evaluated prior to this note. Full consult note with evaluation exam will be placed in the morning. Orthopedics was consulted on the patient secondary to right intertrochanteric femur fracture. Patient's chart reviewed and formal consult note to follow tomorrow morning. Patient sustained a ground-level fall and x-rays show comminuted displaced intertrochanteric femur fracture on the right hip. Discussing with ED staff patient is neurovascularly intact and currently vital signs are stable and afebrile. Denies any prior history of blood thinners however patient on her medication list does take a daily aspirin. History of Alzheimer's as well as A. fib and hypertension a poor historian per ED. X-rays were reviewed and show a right displaced intertrochanteric femur fracture. Recommendation will be for operative intervention for patient's pain control as well as early mobility. Patient may have a diet at this time and should be n.p.o. at midnight. Per ED staff hospitalist to admit patient for medical management. Patient will be medically optimized for surgery,. We have detailed discussion with the patient and family about treatment options in the morning with a full consult note to follow. Vitals/I&O/Wt Last Vital Signs Temp 97.6 F 02/08/22 17:06 Pulse 72 02/08/22 18:15 Resp 16 02/08/22 18:30 BP 117/58 02/08/22 18:30 Pulse Ox 99 02/08/22 18:15 Physical Exam Urinary Catheter Management: Egan: Cath Placed During This Visit: yes Urinary Catheter Date of Insertion: 02/08/22 Urinary Catheter Time of Insertion: 18:38 Data : 02/08/22 18:00 02/08/22 18:00 Xray Ortho: My impression: X-rays of the right hip reviewed and show displaced comminuted right intertro chanteric femur fracture. Review of patient's right knee x-ray showed no acute fracture or dislocation with no previous hardware placement. We will recommend full-length femur films as well as AP pelvis prior to intervention. A&P Assessment and plan (1) Fracture, intertrochanteric, right femur: Status: Acute Plan MDM: Patient 76-year-old female sustained ground-level fall presenting to the ED with right hip pain. Patient past medical history of Alzheimer's equating to a poor historian positive history for A. fib as well as hypertension. Discussion with ED staff patient is not on any blood thinners. She is neurovascular intact to the right lower extremity. X-ray imaging shows displaced comminuted right intertrochanteric femur fracture. At this point time would recommend patient be admitted with medical optimization and management by the hospitalist team. Patient should be n.p.o. at midnight with plan for likely surgery tomorrow for right hip cephalomedullary nail. Patient should have anticoagulations hold in the morning in preparation for surgery. Full orthopedic consultation note to follow in the morning. Attestations Medical Necessity Statement*: Patient has a long bone fracture of the right femur which will require operative intervention. This will require hospitalization as well as postoperative monitoring and therapy. 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
--- NOTE | 2022-02-08 20:46 | P.HP_ITS ---
Providers/Chief Complaint Primary Care Provider: Kelly Matias APN Chief Complaint: FALL/ HIP AND KNEE PAIN History of Present Illness Tram Macdonald is a 76 year old female with a past medical history of dementia, history of atrial fibrillation on anticoagulation, COPD who presents [facility] for fall. Currently she is alert to person, not to place, not to time, she keeps asking me why she is here in the hospital, I am able to tell her that she has a hip fracture, and that she needs surgery, but she continues to repeat her questioning. Patient's is at bedside, tells me that she has severe dementia, at baseline she is able to ambulate to some degree, she has not had any any major falls except this morning, she is able to feed herself, she is able to recognize her , but has significant short-term and long-term memory loss. He tells me that this afternoon, he was out power washing, the last time he saw his was roughly an hour ago, he found his outside, he tells me that when he came up on her, no seizure-like episodes no facial no slurring of words, she was not unconscious, she was complaining of hip pain. The fall was unwitnessed, Review of Systems General: Reports: ROS unobtainable due to mental status Medications/Allergies Home Medications Medication Instructions Recorded Confirmed Last Taken Type amoxicillin 500 mg capsule 1,000 mg PO TID 03/06/20 06/23/21 03/06/20 History aspirin 81 mg chewable tablet 81 mg PO DAILY 03/06/20 06/23/21 03/05/20 History cyanocobalamin (vitamin B-12) 1,000 mcg IM Q30D 03/06/20 06/23/21 Unknown History 1,000 mcg/mL injection solution digoxin 125 mcg (0.125 mg) tablet 125 mcg PO DAILY 03/06/20 06/23/21 03/06/20 History levothyroxine 150 mcg tablet 150 mcg PO DAILY 03/06/20 06/23/21 03/06/20 History (Synthroid) memantine 10 mg tablet 10 mg PO BID 03/06/20 06/23/21 03/05/20 History mometasone-formoterol HFA 200 2 puff inhalation BID 03/06/20 06/23/21 03/05/20 History mcg-5 mcg/actuation aerosol inhaler (Dulera) nifedipine 30 mg tablet,extended 30 mg PO DAILY 03/06/20 06/23/21 03/05/20 History release 24 hr prednisone 10 mg tablet 10 mg PO DIRECTED 03/06/20 06/23/21 03/06/20 History promethazine-DM 6.25 mg-15 mg/5 mL 5 ml PO Q6H PRN Cough 03/06/20 06/23/21 03/05/20 History oral syrup propafenone 150 mg tablet 150 mg PO TID 03/06/20 06/23/21 03/05/20 History cephalexin 500 mg capsule 500 mg PO TID 10 days #30 caps 06/23/21 06/23/21 Unknown Rx Allergies Allergy/AdvReac Type Severity Reaction Status Date / Time Sulfa (Sulfonamide Allergy Unknown Verified 12/09/21 17:41 Antibiotics) PFSH Acute PFSH: Medical History Alzheimer's dementia COPD (chronic obstructive pulmonary disease) Fracture, intertrochanteric, right femur Hypertension Surgical History (Updated 02/08/22 @ 20:49 by Steve Mcmahon MD) History of permanent cardiac pacemaker placement Social History Smoking and tobacco status: never smoked Alcohol intake: never Vitals/I&O/Wt Last Vital Signs Temp 97.6 F 02/08/22 17:06 Pulse 72 02/08/22 18:15 Resp 16 02/08/22 18:30 BP 117/58 02/08/22 18:30 Pulse Ox 99 02/08/22 18:15 Physical Exam Const: COMMON NORMALS: no acute distress EXAM LIMITATIONS: altered mental status ORIENTATION/CONSCIOUSNESS: Yes awake, Yes oriented to person and Yes confused; not oriented to place and not oriented to time HENMT: COMMON NORMALS: normocephalic HEAD & SCALP: normocephalic Resp: COMMON NORMALS: normal respiratory effort, No retractions, No use of accessory muscles and clear to auscultation bilaterally AUSCULTATION: clear to auscultation bilaterally Cardio: COMMON NORMALS: regular rate, regular rhythm, S1 normal heart sound present and S2 normal heart sound present RATE: regular rate RHYTHM: regu lar rhythm HEART SOUNDS: S1 normal heart sound present and S2 normal heart sound present GI: COMMON NORMALS: Normal to inspection, nondistended, normoactive bowel sounds present, Soft to palpation, non-tender, No hepatosplenomegaly present, no masses and no bruits PALPATION: Yes Soft to palpation and Yes No hepatosplenomegaly present Extremity: COMMON NORMALS: no pedal edema Urinary Catheter Management: Egan: Cath Placed During This Visit: yes Urinary Catheter Date of Insertion: 02/08/22 Urinary Catheter Time of Insertion: 18:38 Data : 02/08/22 18:00 02/08/22 18:00 A&P Assessment and plan (1) Fracture, intertrochanteric, right femur: Status: Acute (2) Fall: Status: Acute (3) COPD (chronic obstructive pulmonary disease): Status: Acute (4) Hypertension: Status: Acute (5) Alzheimer's dementia: Status: Acute Plan Right hip fracture -Status post unwitnessed fall -Orthopedic on consult -N.p.o. midnight, plan for surgery tomorrow morning -Dilaudid for pain control -Serial EKGs, surgical telemetry monitoring, -EKG no acute ST-T wave changes -Head CT no acute findings -Continue home levothyroxine -Atrial fibrillation not on anticoagulation, continue aspirin, continue digoxin, propafenone, Cardizem, check digoxin levels -No significant electrolyte abnormalities -No evidence of UTI -Chest x-ray shows possible pneumonia, given elevated white blood cell count start on Rocephin and azithromycin -SCDs for DVT prophylaxis, Lovenox on hold -Patient is DNR/DNI Attestations Medical Necessity Statement*: Patient requires hospitalization for right hip fracture, inpatient, greater than 2 midnights Coding Level of Care Code Acute E Learning Manager for [facility] Diagnoses Fracture, intertrochanteric, right femur S72.141A Fall W19.XXXA COPD (chronic obstructive pulmonary disease) J44.9 Hypertension I10 Alzheimer's dementia G30.9; F02.80
[2022-02-08] MEDS: HYDROmorphone 1 mg/mL INJ 1 mL 0.5 MG IVP (21:10)
--- NOTE | 2022-02-08 21:16 | PC.NURSE ---
Patient placed on oxygen 2L/nc after iv dilaudid for SAT's 88%, now 98%
[2022-02-08 21:24] LABS: Digoxin 1.3 ng/mL (0.6-1.2)
--- NOTE | 2022-02-08 21:26 | PC.NURSE ---
Called floor and updated on pain meds given and oxygen placed
[2022-02-08] MEDS: pantoprazole 40 mg SDV IVP (22:57)
--- NOTE | 2022-02-08 23:11 | ECG_ITS ---
[facility] Test Date: 2022-02-09 Pat Name: Tram Macdonald Department: Room: 278 Gender: Female Client Specialist: : 1945 Requested By: Basilia Pitt Order Number: [id number] Noni MD: Adam Gomez M.D. Measurements Intervals [place] Rate: 79 P: 75 AL: 181 QRS: -80 QRSD: 125 T: 76 QT: 381 QTc: 437 Interpretive Statements SINUS RHYTHM POSSIBLE LEFT ATRIAL ENLARGEMENT [-0.1mV P-WAVE IN V1/V2] LEFT AXIS DEVIATION [QRS AXIS < -30] RIGHT BUNDLE BRANCH BLOCK [120+ ms QRS DURATION, UPRIGHT V1, 40+ ms S IN I/aVL/V4/V5/V6] POSSIBLE SEPTAL MYOCARDIAL INFARCTION , OF INDETERMINATE AGE [30 ms Q WAVE IN V1/V2] Compared to ECG 02/08/2022 19:40:19 Left-axis deviation now present Right bundle-branch block now present Myocardial infarct finding now present Electronically Signed On 02-09-2022 16:30:12 CDT by Adam Gomez M.D. [id number]
[2022-02-08] MEDS: propafenone 150 mg Tablet PO (23:12)
[2022-02-08] MEDS: azithromycin 500 MG in sodium chloride 0.9% 250 ML 250 MG IV (23:13)
[2022-02-09] VITALS (22 sets, daily range): BP systolic 88–138; BP diastolic 48–81; PULSE 63–95; RESP 10–20; TEMP 36.6–37.1; O2SAT 90–100
--- NOTE | 2022-02-09 | SCC_ITS ---
Procedure Done: Right hip cephalomedullary nail 77.8 seconds of fluoroscopic guidance, for a cumulative dose of 7.91 mGy, was provided to Dr. Cruz by the radiology department. C-arm images of the RIGHT hip were saved for the patient's permanent record. ROSALINE
[2022-02-09] MEDS: cefTRIAXone 1,000 MG in sodium chloride 0.9% (plus) 50 ML 100 MG IV ×2 (00:17→23:44)
[2022-02-09] MEDS: HYDROmorphone 1 mg/mL INJ 1 mL 0.5 MG IVP ×4 (00:33→20:27)
[2022-02-09] MEDS: acetaminophen 325 mg Tablet 650 MG PO (00:33)
[2022-02-09 00:43] LABS: Troponin 5 6HR 12.56 ng/L (0-10)
[2022-02-09 00:46] LABS: Troponin 5 6HR Delta 2.56 ng/L (0-12)
[2022-02-09 04:33] LABS: Basophils # 0.1 10^3/uL (0.0-0.1); Basophils % 0.5 %; Eosinophils % 0.2 %; Hematocrit 32.5 % (37.0-47.0); Hemoglobin 10.5 g/dL (11.5-15.3); Lymphocytes # 2.5 10^3/uL (0.8-4.8); Lymphocytes % 20.1 %; Mean Corpuscular HGB Conc 32.3 g/dL (30.0-36.0); Mean Corpuscular Hemoglobin 30.2 pg (28.0-34.0); Mean Corpuscular Volume 93.4 fl (81-99); Mean Platelet Volume 8.9 fL (7.4-10.4); Monocytes # 1.2 10^3/uL (0.2-0.9); Monocytes % 9.6 %; Neutrophils # 8.65 10^3/uL (1.8-7.7); Nucleated Red Blood Cells % 0 %; Platelet Count 193 10^3/cmm (130-400); Red Blood Count 3.48 10^6/uL (4.1-5.3); Red Cell Distribution Width 12.6 % (12.1-15.1); White Blood Count 12.5 10^3/uL (4.0-10.0)
[2022-02-09 05:02] LABS: INR 1.12 (0.8-1.2)
[2022-02-09 05:11] LABS: Albumin Level 3.2 g/dL (3.5-5.2); Chloride 100 mmol/L (98-107); Potassium 5.2 mmol/L (3.5-5.1); Sodium 137 mmol/L (136-145)
[2022-02-09 05:13] LABS: Lactic Sepsis W/Reflex 1.9 mmol/L (0.5-2.2)
[2022-02-09 05:30] LABS: Estmated Average Glucose 143; Hemoglobin A1C 6.6 % (4.0-6.0)
[2022-02-09 05:56] LABS: Alanine Aminotransferase 13 U/L (0-33); Alkaline Phosphatase 61 U/L (35-105); Anion Gap 16.2 (5-19); Aspartate Amino Transferase 10 U/L (0-32); Blood Urea Nitrogen 16 mg/dL (8-23); Calcium 8.5 mg/dL (8.5-10.5); Carbon Dioxide 26 mmol/L (22-29); Chol HDL Ratio 3.33 mg/dL (0.0-4.40); Cholesterol 180 mg/dL (0-200); Globulin 2.3 g/dL (1.3-4.6); Glucose 151 mg/dL (65-115); HDL Cholesterol 54 mg/dL (60-100); LDL Cholesterol Calculated 114 mg/dL (50-129); LDL HDL Ratio 2.11 RATIO (0.00-3.22); Magnesium 1.7 mg/dL (1.7-2.3); NT Pro B Type Natriuretic Pept 195 pg/mL (0-450); Osmolality Calculated 288 mOsm/kg (285-295); Phosphorus 4.5 mg/dL (2.5-4.5); Thyroid Stimulating Hormone 0.84 uIU/mL (0.27-4.20); Total Bilirubin 0.4 mg/dL (0.15-1.2); Total Protein 5.5 g/dL (6.6-8.7); Triglycerides 61 mg/dL (0-150)
--- NOTE | 2022-02-09 06:52 | P.CONIM_ITS ---
Providers/Reason For Consult Consulting Physician/Specialty*: Rafiq Cruz DO/orthopedic surgery Reason for Consult*: Comminuted right intertrochanteric hip fracture Requesting Physician: BANDAR Mansfield Attending Physician: Steve Mcmahon MD Primary Care Provider: Kelly Matias APN History of Present Illness History of Present Illness Tram Macdonald is a 76 year old female with history of Alzheimer's dementia and is a poor historian and does repeat herself however she does follow commands on my examination. Her is not at bedside and was contacted separately over the phone. Patient does have past history of A. fib as well as hypertension and COPD. Patient presents from fall to the right lower extremity and is unable to bear weight with pain in the right hip. Right hip deformity noted with right lower extremity shortened and externally rotated. Patient brought to the emergency department found to have a right intertrochanteric hip fracture orthopedic surgery was consulted. Patient unable to confirm or deny blood thinners however review of chart shows she does take a daily aspirin. Had conversation with Lucas over the phone explaining patient's diagnosis. Denies patient on any anticoagulation. States she does have dementia. States her baseline walking status is that she does ambulate around the house but will utilize him for assistance because she does not like using her walker. States roberto mc found her down awake and was complaining of pain on her right hip. Through shared decision-making with Lucas understanding patient's diagnosis and best prognosis is for right hip open duction internal fixation with cephalomedullary nailing would offer patient's greatest pain relief as well as early mobility and weightbearing. Patient's understands and agrees to proceed with current plan. All questions answered. Review of Systems General: Reports: ROS unobtainable due to mental status (Secondary to patie nt's Alzheimer's dementia) Medications/Allergies Home Medications Medication Instructions Recorded Confirmed Last Taken Type amoxicillin 500 mg capsule 1,000 mg PO TID 03/06/20 06/23/21 03/06/20 History aspirin 81 mg chewable tablet 81 mg PO DAILY 03/06/20 06/23/21 03/05/20 History cyanocobalamin (vitamin B-12) 1,000 mcg IM Q30D 03/06/20 06/23/21 Unknown History 1,000 mcg/mL injection solution digoxin 125 mcg (0.125 mg) tablet 125 mcg PO DAILY 03/06/20 06/23/21 03/06/20 History levothyroxine 150 mcg tablet 150 mcg PO DAILY 03/06/20 06/23/21 03/06/20 History (Synthroid) memantine 10 mg tablet 10 mg PO BID 03/06/20 06/23/21 03/05/20 History mometasone-formoterol HFA 200 2 puff inhalation BID 03/06/20 06/23/21 03/05/20 History mcg-5 mcg/actuation aerosol inhaler (Dulera) nifedipine 30 mg tablet,extended 30 mg PO DAILY 03/06/20 06/23/21 03/05/20 History release 24 hr prednisone 10 mg tablet 10 mg PO DIRECTED 03/06/20 06/23/21 03/06/20 History promethazine-DM 6.25 mg-15 mg/5 mL 5 ml PO Q6H PRN Cough 03/06/20 06/23/21 03/05/20 History oral syrup propafenone 150 mg tablet 150 mg PO TID 03/06/20 06/23/21 03/05/20 History cephalexin 500 mg capsule 500 mg PO TID 10 days #30 caps 06/23/21 06/23/21 Unknown Rx Allergies Allergy/AdvReac Type Severity Reaction Status Date / Time Sulfa (Sulfonamide Allergy Unknown Verified 12/09/21 17:41 Antibiotics) Current Medications Generic Name Dose Route Start Last Admin Trade Name Freq PRN Reason Stop Dose Admin Acetaminophen 650 mg 02/08/22 21:58 02/09/22 00:33 Acetaminophen 325 Mg Tablet PO 650 mg Q6H PRN Administration Mild/Mod Pain Or Temp >/= 101 Hydromorphone HCl 0.5 mg 02/08/22 21:58 02/09/22 06:34 Hydromorphone 1 Mg/Ml Inj 1 Ml IVP 0.5 mg Q4H PRN Administration PAIN Ceftriaxone Sodium 1,000 mg/ 50 mls @ 100 mls/hr 02/08/22 23:00 02/09/22 00:48 Sodium Chloride IV Infused Q24H [facility] Infusion Protocol Azithromycin 500 mg/ Sodium 250 mls @ 250 mls/hr 02/08/22 22:30 02/09/22 00:19 Chloride IV Infused Q24H [facility] Infusion Protocol Pantoprazole Sodium 40 mg 02/08/22 21:58 02/08/22 22:57 Pantoprazole 40 Mg Sdv IVP 40 mg Q24H [facility] Administration Propafenone HCl 150 mg 02/08/22 21:58 02/08/22 23:12 Propafenone 150 Mg Tablet PO 150 mg TID [facility] Administration PFSH Acute PFSH: Medical History Alzheimer's dementia COPD (chronic obstructive pulmonary disease) Fracture, intertrochanteric, right femur Hypertension Surgical History (Updated 02/08/22 @ 20:49 by Steve Mcmahon MD) History of permanent cardiac pacemaker placement Social History Smoking and tobacco status: never smoked Alcohol intake: never Vitals/I&O/Wt Last Vital Signs Temp 98.8 F 02/09/22 04:00 Pulse 76 02/09/22 04:00 Resp 14 02/09/22 06:34 BP 124/72 02/09/22 04:00 Pulse Ox 96 02/09/22 04:00 O2 Del Method 02/09/22 03:34 02/08/22 02/08/22 02/09/22 14:59 22:59 06:59 Intake Total 120 / 120 300 / 420 Output Total 120 / 120 Balance 120 / 120 180 / 300 Physical Exam Narrative: Examination Patient is awake and alert however does appear slightly confused and repeats herself. She does follow commands. She does not appear to be in acute r espiratory distress. She is in moderate discomfort secondary to pain when she moves around in the bed. Orthopedic specific examination: No tenderness palpation of bilateral shoulders elbows wrists or hands with normal range of motion without discomfort. Radial pulse 2+ endorse sensation intact light touch the bilateral upper extremities. Examination of the pelvis demonstrates tenderness palpation over the right hip and not the left hip. Patient has a negative logroll to the left lower extremity and is able to lift her left leg off the bed. She is able to wiggle her toes plantarflex and dorsiflex her ankle to the left lower extremity. Distal pulse 2+. Examination of injured extremity. Patient is tenderness palpation the right hip. Positive logroll. Patient's right lower extremity shortened and externally rotated. She does endorse sensation intact light touch in the right lower extremity of the tibial, saphenous, sural nerve distribution as well as SPN and DPN. Distal pulses 2+. Her right lower extremity is warm well perfused compartments are soft and compressible. She is able to wiggle her toes as well as plantarflex and dorsiflex her right ankle. Urinary Catheter Management: Egan: Cath Placed During This Visit: yes Reason for Continuing Indwelling Catheter: Acute Urinary Retention or Obstruction Urinary Catheter Date of Insertion: 02/08/22 Urinary Catheter Time of Insertion: 18:38 Data : 02/09/22 04:19 02/09/22 04:19 Xray Ortho: My impression: X-rays reviewed and demonstrate a comminuted displaced right intertrochanteric femur fracture. A&P Assessment and plan (1) Fracture, intertrochanteric, right femur: Status: Acute Plan Orthopedic plan: -N.p.o. -Nonweightbearing right lower extremity -Pain control per primary team -Medical management per hospitalist team appreciate their assistance - contacted and agrees to proceed with surgery. -Reviewed imaging findings consistent with right intertrochanteric hip fracture -Hold a.m. anticoagulation -Plan for OR today for right hip open reduction internal fixation with cephalomedullary nail Coding Level of Care Code Acute [place] Upholsterer for Kasey Donaldson Diagnoses Fracture, intertrochanteric, right femur S72.141A
--- NOTE | 2022-02-09 09:18 | PC.PHAR ---
Addendum entered by Shantell Bennett 02/09/22 13:06: have tried to call the pts 3 different times with no answer-medications entered are [facility] states they have filled for the pt recently aspirin 81mg daily was a medication that was on a previous entered med list [facility] has not filled aspirin-notes are made in the pharmacy comments with last fill dates Addendum entered by Shantell Bennett 02/09/22 12:36: called again no answer Addendum entered by Shantell Bennett 02/09/22 10:22: called pts again no answer Original Note: pt states her helps her with her medications-called pts ivonne [phone] no answer-no voicemail to leave message
--- NOTE | 2022-02-09 09:46 | PC.NURSE ---
off of the floor
[2022-02-09 10:14] LABS: Iron 21 ug/dL (37-145); Total Iron Binding Capacity 209 mcg/dl; Unsaturated Iron Binding 188 ug/dL (112-347)
[2022-02-09] MEDS: sodium chloride 0.9% 1,000 ML 30 ML IV (10:14)
[2022-02-09] MEDS: fentaNYL 50 mcg/mL INJ 2mL IVP (10:19)
--- NOTE | 2022-02-09 10:19 | P.ANESASSM_ITS ---
Pre-Anesthetic Assessment Height/Weight: Height 1.6 m Weight 52.645 kg Temp Pulse Resp BP Pulse Ox O2 Del Method 98.7 F 78 18 135/70 93 02/09/22 09:57 02/09/22 09:57 02/09/22 09:57 02/09/22 09:57 02/09/22 09:57 02/09/22 09:57 Operation Date: 02/09/22 09:15 Proposed Procedures p Trochanteric Femoral Nail(Right) - Rafiq Bates, DO Familial anesthetic complications: none Was Beta Michael taken within 24 hours: N/A Was Clonidine taken within 24 hours: N/A Last intake: Intake Last Liquid Date 02/08/22 Last Liquid Time 21:00 Last Solid Date 02/08/22 Last Solid Time 13:00 Social No alcohol and No tobacco Exam alert, oriented x 3, clear to auscultation bilaterally and regular rate & rhythm Airway Submandibular: within normal limits Cervical ROM: within normal limits Mallampati: Class II Dentition: chipped Pulmonary Chronic Obstructive Pulmonary Disease CV/HEM Hypertension Metabolic Thyroid Disease chronic steroid? Neuropsych Dementia Anesthetic Plan ASA status: 3 Anesthesia: Regional (specify below) (SAB to GA/LMA) Medications/Allergies Home Medications Medication Instructions Recorded Confirmed Last Taken Type amoxicillin 500 mg capsule 1,000 mg PO TID 03/06/20 06/23/21 03/06/20 History aspirin 81 mg chewable tablet 81 mg PO DAILY 03/06/20 06/23/21 03/05/20 History cyanocobalamin (vitamin B-12) 1,000 mcg IM Q30D 03/06/20 06/23/21 Unknown History 1,000 mcg/mL injection solution digoxin 125 mcg (0.125 mg) tablet 125 mcg PO DAILY 03/06/20 06/23/21 03/06/20 History levothyroxine 150 mcg tablet 150 mcg PO DAILY 03/06/20 06/23/21 03/06/20 History (Synthroid) memantine 10 mg tablet 10 mg PO BID 03/06/20 06/23/21 03/05/20 History mometasone-formoterol HFA 200 2 puff inhalation BID 03/06/20 06/23/21 03/05/20 History mcg-5 mcg/actuation aerosol inhaler (Dulera) nifedipine 30 mg tablet,extended 30 mg PO DAILY 03/06/20 06/23/21 03/05/20 History release 24 hr prednisone 10 mg tablet 10 mg PO DIRECTED 03/06/20 06/23/21 03/06/20 History promethazine-DM 6.25 mg-15 mg/5 mL 5 ml PO Q6H PRN Cough 03/06/20 06/23/21 03/05/20 History oral syrup propafenone 150 mg tablet 150 mg PO TID 03/06/20 06/23/21 03/05/20 History cephalexin 500 mg capsule 500 mg PO TID 10 days #30 caps 06/23/21 06/23/21 Unknown Rx Allergies Allergy/AdvReac Type Severity Reaction Status Date / Time Sulfa (Sulfonamide Allergy Unknown Verified 12/09/21 17:41 Antibiotics) Current Medications Generic Name Dose Route Start Last Admin Trade Name Freq PRN Reason Stop Dose Admin Acetaminophen 650 mg 02/08/22 21:58 02/09/22 00:33 Acetaminophen 325 Mg Tablet PO 650 mg Q6H PRN Administration Mild/Mod Pain Or Temp >/= 101 Hydromorphone HCl 0.5 mg 02/08/22 21:58 02/09/22 06:34 Hydromorphone 1 Mg/Ml Inj 1 Ml IVP 0.5 mg Q4H PRN Administration PAIN Ceftriaxone Sodium 1,000 mg/ 50 mls @ 100 mls/hr 02/08/22 23:00 02/09/22 00:48 Sodium Chloride IV Infused Q24H [facility] Infusion Protocol Azithromycin 500 mg/ Sodium 250 mls @ 250 mls/hr 02/08/22 22:30 02/09/22 00:19 Chloride IV Infused Q24H [facility] Infusion Protocol Pantoprazole Sodium 40 mg 02/08/22 21:58 02/08/22 22:57 Pantoprazole 40 Mg Sdv IVP 40 mg Q24H [facility] Administration Propafenone HCl 150 mg 02/08/22 21:58 02/08/22 23:12 Propafenone 150 Mg Tablet PO 150 mg TID [facility] Administration PFSH Anesthesia Medical History Alzheimer's dementia COPD (chronic obstructive pulmonary disease) Fracture, intertrochanteric, right femur Hypertension Surgical History (Updated 02/08/22 @ 20:49 by Steve Mcmahon MD) History of permanent cardiac pacemaker placement Social History Smoking and tobacco status: never smoked Alcohol intake: never Data Anesthesia : 02/09/22 04:19 02/09/22 04:19 Short CBC 02/08/22 02/09/22 Range/Units 18:00 04:19 WBC 17.0 H 12.5 H (4.0-10.0) 10^3/uL Hgb 13.1 10.5 L (11.5-15.3) g/dL Hct 43.8 32.5 L (37.0-47.0) % MCV 101.2 H 93.4 D (81-99) fl Plt Count 115 L 193 D (130-400) 10^3/cmm Neut % (Auto) 75.7 69.0 % Neut # (Auto) 12.85 H 8.65 H (1.8-7.7) 10^3/uL BMP 02/08/22 02/09/22 18:00 04:19 Sodium 135 L 137 Potassium 4.6 5.2 H Chloride 98 100 Carbon Dioxide 23 26 BUN 12 16 Creatinine 0.9 1.1 H Glucose 188 H 151 H Calcium 9.4 8.5 Cardiac Enzymes 02/08/22 02/08/22 02/08/22 Range/Units 18:00 20:45 23:54 Troponin T Baseline 10 (0-10) ng/L Troponin T 120 Minute 11.10 H (0-10) ng/L Delta Troponin T 1.10 (0-10) ABS# Troponin T Hi Sens 6Hr 12.56 H (0-10) ng/L Troponin T Hi Sens 6Hr Delta 2.56 (0-12) ng/L NT-Pro-B Natriuret Pep (0-450) pg/mL 02/09/22 Range/Units 04:19 Troponin T Baseline (0-10) ng/L Troponin T 120 Minute (0-10) ng/L Delta Troponin T (0-10) ABS# Troponin T Hi Sens 6Hr (0-10) ng/L Troponin T Hi Sens 6Hr Delta (0-12) ng/L NT-Pro-B Natriuret Pep 195 (0-450) pg/mL Liver Function 02/08/22 02/09/22 Range/Units 18:00 04:19 Total Bilirubin 0.4 0.4 (0.15-1.2) mg/dL AST 13 10 (0-32) U/L ALT 14 13 (0-33) U/L Alkaline Phosphatase 76 61 (35-105) U/L Albumin 4.1 3.2 L (3.5-5.2) g/dL Urine 02/08/22 Range/Units 18:35 Urine Color Yellow (Yellow) Urine Appearance Clear (CLEAR) Urine pH 6 (5-7) Ur Specific [place] 1.015 (1.005-1.030) Urine Protein Neg (Negative) Urine Glucose (UA) Norm (Normal) Urine Ketones Negative (Negative) Urine Nitrate Negative (Negative) Urine Bilirubin 1+ H (Negative) Ur Leukocyte Esterase Negative (Negative) Coags 02/09/22 04:19 PT 14.70 INR 1.12 Cardiac Studies: No Data to Display
--- NOTE | 2022-02-09 10:19 | W.PM.OPSUD ---
Surgery/Procedure H&P Update DATE OF PROCEDURE: February 09, 2022 DATE H&P PERFORMED: 02/09/22 CHANGES TO PREVIOUS DOCUMENTATION: None PRIMARY INDICATION FOR PROCEDURE: Right intertrochanteric femur fracture PLANNED PROCEDURE: Operation Date: 02/09/22 09:15 Proposed Procedures p Trochanteric Femoral Nail(Right) - Rafiq Cruz DO
[2022-02-09 10:29] LABS: Vitamin B12 1422 pg/mL (232-1245)
[2022-02-09 10:33] LABS: Folate Level 8.3 ng/mL (4.8-37.3)
--- NOTE | 2022-02-09 11:30 | PM.OP2 ---
Brief Operative Note Date of procedure: 02/09/22 Pre-op diagnosis: Right intertrochanteric hip fracture Post-op diagnosis: same Procedure Done: Right hip cephalomedullary nail Complications: None Post-op Plan: Patient was seen and evaluated by myself in PACU this morning after surgery. Patient taken to PACU in stable condition. Spinal anesthesia still in effect. Patient awake and responsive. Will receive appropriate DVT prophylaxis, pain control weightbearing as tolerated right lower extremity. Return to floor. Condition: stable Coding Level of Care Code Acute Acid Correction Hand for Kasey Donaldson
--- NOTE | 2022-02-09 11:35 | PM.PACU ---
PACU note Narrative: Patient taken to PACU in stable condition. Patient received spinal anesthesia. Will recover in PACU and returned to floor. No complications during surgery. May be weightbearing as tolerated to the right lower extremity. Exam: awake (Examination to the right lower extremity is limited secondary to spinal anesthesia still in effect unable to assess motor and sensation. Patient's right lower extremity warm well perfused with distal pulses 2+) and other (Dressings on in place and are clean dry and intact to the right hip. Compartments soft and compressible.) Disposition: back to floor
--- NOTE | 2022-02-09 11:43 | PC.NURSE ---
Patient not in room
--- NOTE | 2022-02-09 11:45 | XR_ITS ---
WS: [id number] Right hip, C-arm fluoroscopy view, 02/09/2022 Clinical Data: OR PICS Comparison: Right hip, 02/08/2022 Findings: The intertrochanteric fracture of the right hip has been repaired with an oblique nail in the right f emoral neck and proximal intertrochanteric nisha. XR/XR hip RT 2-3V wo/w pel* [id number] Impression: Internal fixation of intertrochanteric fracture of the right hip.
--- NOTE | 2022-02-09 11:55 | P.HPUD_ITS ---
Surgery/Procedure H&P Update DATE OF PROCEDURE: February 09, 2022 DATE H&P PERFORMED: 02/09/22 H&P UPDATE INFORMATION: H&P is in [facility] EMR on date indicated CHANGES TO PREVIOUS DOCUMENTATION: None PRIMARY INDICATION FOR PROCEDURE: Right intertrochanteric hip fracture PLANNED PROCEDURE: Operation Date: 02/09/22 09:15 Proposed Procedures p Trochanteric Femoral Nail(Right) - Rafiq Cruz DO
--- NOTE | 2022-02-09 12:00 | PM.OP ---
Operative Report Date of procedure: February 09, 2022 Pre-op diagnosis: Right comminuted intertrochanteric femur fracture Post-op diagnosis: Same Post-op findings: See procedure note Procedure done: Right hip cephalomedullary nail Implants: Tone gamma nail 11 mm x 180 mm, 90 mm lag screw, 35 mm distal locking screw Specimens removed/disposition: None Pathology: None Surgeon: Rafiq Cruz DO Estimated blood loss: 150 cc None IV fluids: See anesthesia note Complications: None Findings: See procedure note Brief History: Patient is a pleasantly demented 76-year-old female who presented to the emergency department after sustaining a ground-level fall and was found by her . She is complaining of right hip pain unable to bear weight brought to emergency department found to have a right comminuted intertrochanteric femur fracture. Orthopedic surgery was consulted. Patient was seen and evaluated by myself in detail discussion with patient as well as her at bedside as far as her treatment options ago from a nonoperative and operative standpoint. Detailed the risks of benefits complications alternatives to both treatment options. Given this being a long bone fracture for pain control and early mobility would recommend operative intervention with cephalomedullary nail to the right hip. Patient as well as was then detailed on the risks which include but are not limited to make it better make it worse, blood clot, heart attack, stroke, loss of life or limb, malunion, nonunion, failure of hardware, infection. They understand these risks and ultimately agreed to proceed with surgical intervention. Consent was obtained. All questions answered. Procedure: Patient was seen and evaluated in the preoperative holding area. Final questions were answered with patient and family. Consent was reviewed with patient and and signed. Appropriate extremity was marked. Patient was evaluated by anesthesia. Patient was taken to the OR and underwent spinal anesthesia per the anesthesia department. Once this was performed patient was appropriately placed on a [place] bed with all bony prominences well-padded. Once patient set up an appropriate delay anesthetized we then proceeded with evaluation of the right hip fracture. Large C-arm was then brought in and the right hip was identified and a comminuted and displaced intertrochanteric femur fracture was identified. Standard closed reduction maneuver was performed with slight abduction gentle traction adduction and internal rotation and we had a satisfactory closed reduction with near anatomic alignment of right intertrochanteric femur fracture. This was confirmed on both AP and lateral images which showed anatomic reduction. This point time the right lower extremity was then prepped and draped in standard orthopedic fashion. Final timeout performed. Small 3 inch incision was made superior to the greater trochanter on the lateral aspect of the hip. Once down to fascia blunt Rogers was used to split the muscle belly directly down to the greater trochanter bone. We then utilized an awl for starting point was confirmed on AP and lateral images to be an appropriate starting point and on the tip of the greater trochanter position. We then advanced the to the level of the lesser trochanter confirming this with multiple orthogonal images. We then passed the long ball-tipped guidewire through the awl to maintain her position. Next we then used our opening reamer to open the proximal body for the nail. With concern for a slight tight split at the isthmus we then utilized flexible reamers starting with 10mm, 11mm, 12mm and then 12.5mm. Given the fracture pattern patient amendable to short nail. We then loaded our [place] gamma nail 11 mm x 180 mm. This was passed over ball-tipped guidewire once this was appropriately in bone we then pulled our guidewire out and then placed our set screw in preparation for lag screw fixation. Once the set at appropriate depth on AP imaging we then placed our lateral lag screw jig incision was made through skin directly. And directly out of bone. Triple sleeve was then secured in appropriate position within placed a threaded guidepin in appropriate center center position within the satisfactory tip to apex distance on AP and lateral images. Once this was in appropriate place we then measured for length of the lag screw which was measured to be 90mm. Reamer was then sent to 90mm and this was reamed under live fluoroscopic imaging to confirm appropriate depth prolapse replacement parents are satisfied with this 90 mm lag screw was then opened and then placed over the guidepin with excellent fixation and appropriate length. Once were satisfied with this we then decided to forego the compression devices fracture was nondisplaced. We then used our setscrew up top to lock our lag screw into position. Finally we then set the outer jig to place the distal locking screw through the static hole. Triple sleeve was then introduced. Small skin incision was made through skin IT band and bone. We then introduced the drill which was then drilled bicortically appropriately measured and appropriate length screw of 35mm distal locking screw was then placed with excellent fixation. This completed our construct. Targeting guide was then removed. Final AP and lateral images of the construct confirmed anatomic reduction was excellent fixation with appropriate tip to apex distance. Wounds were then thoroughly irrigated. Deep fascia was closed with 0 Vicryl subcutaneous tissue closed with 2-0 Vicryl and skin was closed with margot. Incisions were covered with Silverlon dressing. Patient was then awakened from anesthesia transferred to hospital bed and taken to PACU in stable condition. Disposition: Patient will receive appropriate pain medication, DVT prophylaxis, postoperative antibiotics, will be weightbearing as tolerated to the right lower extremity, work with PT/OT, internal medicine on board for medical management. Plan to return to the floor. Will work with social work for discharge planning. Plan to follow-up in 2 weeks postoperatively.
--- NOTE | 2022-02-09 12:04 | XRR_ITS ---
PROCEDURE INFORMATION: Exam: XR Right Hip Exam date and time: 02/09/2022 12:06 PM Age: 76 years old Clinical indication: Device placement; Prior surgery; Surgery date: Post-operative (0-2 days); Surgery type: Postop orif; Additional info: Postop orif, ap hip, and cross table lateral TECHNIQUE: Imaging protocol: Radiologic exam of the Right hip. Views: 1 view hip with pelvis when performed. COMPARISON: OT XR hip RT 2-3V wo/w pel* [id number] 02/09/2022 11:29 AM FINDINGS: Bones/joints: Femoral neck pin and proximal femoral shaft intramedullary nisha transfix a comminuted intertrochanteric fracture in satisfactory position. Soft tissues: Some gas is present in the soft tissues from the recent surgery. XR/XR hip RT 2-3V wo/w pel* [id number] IMPRESSION: Satisfactory position of the intertrochanteric fracture.
--- NOTE | 2022-02-09 13:47 | PM.PN ---
Subjective Subjective: Admitted overnight. Plan for ORIF today. No acute events overnight postadmission. Has remained hemodynamically stable. Vitals/I&O/Wt Last Vital Signs Temp 98.0 F 02/09/22 12:36 Pulse 78 02/09/22 12:36 Resp 16 02/09/22 12:36 BP 99/57 02/09/22 12:36 Pulse Ox 97 02/09/22 12:36 O2 Del Method 02/09/22 12:36 O2 Flow Rate 6 02/09/22 11:47 02/08/22 02/09/22 02/09/22 22:59 06:59 14:59 Intake Total 120 / 120 300 / 420 800 / 800 Output Total 120 / 120 250 / 250 Balance 120 / 120 180 / 300 550 / 550 Weight last 48 hrs Weight 52.645 kg Physical Exam Const: COMMON NORMALS: no acute distress EXAM LIMITATIONS: altered mental status ORIENTATION/CONSCIOUSNESS: Yes awake, Yes oriented to person and Yes confused; not oriented to place and not oriented to time HENMT: COMMON NORMALS: normocephalic HEAD & SCALP: normocephalic Resp: COMMON NORMALS: normal respiratory effort, No retractions, No use of accessory muscles and clear to auscultation bilaterally AUSCULTATION: clear to auscultation bilaterally Cardio: COMMON NORMALS: regular rate, regular rhythm, S1 normal heart sound present and S2 normal heart sound present RATE: regular rate RHYTHM: regular rhythm HEART SOUNDS: S1 normal heart sound present and S2 normal heart sound present GI: COMMON NORMALS: Normal to inspection, nondistended, normoactive bowel sounds present, Soft to palpation, non-tender, No hepatosplenomegaly present, no masses and no bruits PALPATION: Yes Soft to palpation and Yes No hepatosplenomegaly present Extremity: COMMON NORMALS: no pedal edema Neuro: SENSORIUM/ORIENTATION: Yes oriented to person, No oriented to place and No oriented to time Urinary Catheter Management: Egan: Cath Placed During This Visit: yes Reason for Continuing Indwelling Catheter: Other Urinary Catheter Date of Insertion: 02/08/22 Urinary Catheter Time of Insertion: 18:38 Data : 02/09/22 04:19 02/09/22 04:19 A&P Assessment and plan (1) Fracture, intertrochanteric, right femur: Plan for ORIF today. Physical therapy, anticoagulation, perioperative antibiotics as per orthopedics. Monitor hemoglobin. Status: Acute Qualifiers: Encounter type: initial encounter Fracture type: closed (2) Fall: Mechanical. Status: Acute Qualifiers: Encounter type: initial encounter Qualified Code(s): W19.XXXA - Unspecified fall, initial encounter (3) COPD (chronic obstructive pulmonary disease): No acute exacerbation. DuoNebs every 6 as needed Status: Acute (4) Hypertension: Goal blood pressure less than 140/90 mmHg with mean over 60. Hold off on nifedipine for now. Will be started the blood pressure is better postoperatively. Status: Acute Qualifiers: Hypertension type: primary hypertension Qualified Code(s): I10 - Essential (primary) hypertension (5) Alzheimer's dementia: Status: Acute (6) Acute kidney injury: Status: Acute (7) Atrial fibrillation: Status: Acute Plan Atrial fibrillation: Level slightly elevated. Will continue to monitor. Continue with propafenone. Not on anticoagulation given advanced age, risk of fall from dementia. Acute kidney injury: Most likely from dehydration. N.p.o. currently. Start on normal saline at 50 cc/h. Monitor BMP daily for now. DNR/DNI. Anticoagulation as per surgical team. NPO. Protonix for PUD prophylaxis. Discharge planning: Most likely patient will need SNF placement given advanced Alzheimer's for postoperative care. Case management alerted Attestations Medical Necessity Statement*: Requires further hospitalization for management of hip fracture requiring ORIF Time Spent in Patient Care: Greater than 35 minutes Coding Level of Care Code Acute Employment Agency Manager for [facility] Diagnoses Fracture, intertrochanteric, right femur S72.141A Encounter type: initial encounter Fracture type: closed Fall W19.XXXA Encounter type: initial encounter COPD (chronic obstructive pulmonary disease) J44.9 Hypertension I10 Hypertension type: primary hypertension Alzheimer's dementia G30.9; F02.80 Acute kidney injury N17.9 Atrial fibrillation I48.91
[2022-02-09] MEDS: digoxin 125 mcg Tablet PO (13:49)
[2022-02-09] MEDS: aspirin 81 mg Chew Tablet PO (13:49)
[2022-02-09] MEDS: memantine 5 mg tablet 10 MG PO ×2 (13:50→17:48)
[2022-02-09] MEDS: acetaminophen 500 mg Tablet 1000 MG PO (13:50)
[2022-02-09] MEDS: ceFAZolin 2,000 MG in sodium chloride 0.9% (plus) 50 ML 100 MG IV ×2 (13:50→20:28)
[2022-02-09] MEDS: chlorhexidine gluconate 0.12% Btl 473 mL 30 ML MUCOUS MEM ×2 (13:51→16:33)
[2022-02-09] MEDS: propafenone 150 mg Tablet PO ×2 (15:03→20:28)
[2022-02-09] MEDS: iron polysaccharide complex 150 mg Capsule PO (17:49)
[2022-02-09] MEDS: sennosides-docusate Tablet 2 TAB PO (17:49)
[2022-02-09] MEDS: mupirocin oint 22 gm 1 APPLIC NASAL (17:49)
[2022-02-09] MEDS: calcium carb-vit d 600mg/400unit 1 Tablet 1 EACH PO (17:49)
[2022-02-09] MEDS: pantoprazole 40 mg SDV IVP (20:29)
[2022-02-09] MEDS: azithromycin 500 MG in sodium chloride 0.9% 250 ML 250 MG IV (21:25)
[2022-02-09] MEDS: ondansetron 2 mg/ML SDV 2 mL 4 MG IVP (22:31)
[2022-02-10] VITALS (10 sets, daily range): BP systolic 110–126; BP diastolic 62–78; PULSE 60–93; RESP 16–21; TEMP 36.6–37.4; O2SAT 90–93
[2022-02-10] MEDS: HYDROmorphone 1 mg/mL INJ 1 mL 0.5 MG IVP (01:06)
[2022-02-10] MEDS: ceFAZolin 2,000 MG in sodium chloride 0.9% (plus) 50 ML 100 MG IV (03:44)
[2022-02-10 03:48] LABS: Basophils # 0.1 10^3/uL (0.0-0.1); Basophils % 0.4 %; Eosinophils # 0.1 10^3/uL (0.0-0.8); Eosinophils % 0.4 %; Hemoglobin 8.4 g/dL (11.5-15.3); Lymphocytes # 1.4 10^3/uL (0.8-4.8); Lymphocytes % 10.3 %; Mean Corpuscular Hemoglobin 29.9 pg (28.0-34.0); Mean Platelet Volume 8.8 fL (7.4-10.4); Monocytes # 1.2 10^3/uL (0.2-0.9); Monocytes % 8.6 %; Neutrophils # 10.98 10^3/uL (1.8-7.7); Neutrophils % 79.6 %; Nucleated Red Blood Cells % 0 %; Platelet Count 161 10^3/cmm (130-400); Red Blood Count 2.81 10^6/uL (4.1-5.3); Red Cell Distribution Width 12.2 % (12.1-15.1); White Blood Count 13.8 10^3/uL (4.0-10.0)
[2022-02-10 04:09] LABS: Alanine Aminotransferase 14 U/L (0-33); Albumin Level 3.1 g/dL (3.5-5.2); Alkaline Phosphatase 62 U/L (35-105); Anion Gap 15.4 (5-19); Aspartate Amino Transferase 15 U/L (0-32); Blood Urea Nitrogen 19 mg/dL (8-23); Calcium 8.2 mg/dL (8.5-10.5); Carbon Dioxide 24 mmol/L (22-29); Chloride 99 mmol/L (98-107); Globulin 1.8 g/dL (1.3-4.6); Glucose 155 mg/dL (65-115); Magnesium 1.9 mg/dL (1.7-2.3); Osmolality Calculated 283 mOsm/kg (285-295); Phosphorus 3.9 mg/dL (2.5-4.5); Potassium 4.4 mmol/L (3.5-5.1); Sodium 134 mmol/L (136-145); Total Bilirubin 0.3 mg/dL (0.15-1.2); Total Protein 4.9 g/dL (6.6-8.7)
[2022-02-10 04:33] LABS: Mean Corpuscular Volume 99.6 fl (81-99)
[2022-02-10] MEDS: enoxaparin 30 mg/0.3 mL Syringe SUBCUT (05:27)
[2022-02-10] MEDS: sodium chloride 0.9% 1,000 ML 50 ML IV (05:28)
--- NOTE | 2022-02-10 05:35 | PC.NURSE ---
Patient is so confused this morning and all night. She has removed 2 IVs this night, keeps removing telemetry, pulled her clark catheter apart and now she is pulling at the dressing to her right hip surgery. Informed Dr Mcmahon. Waiting for directions.
--- NOTE | 2022-02-10 05:45 | PC.NURSE ---
Removed the balance of the catheter tubing from patient. Egan was found in 2 pieces. Attempted to obtain new IV access. Patient pulling away and arguing I don't need that anymore. Received telephone order from Dr Mcmahon for Haldol 1mg IM once.
[2022-02-10] MEDS: haloperidol inj 5 mg/mL INJ 1 mL 1 MG IM (05:50)
[2022-02-10] MEDS: aspirin 81 mg Chew Tablet PO (10:33)
[2022-02-10] MEDS: propafenone 150 mg Tablet PO ×3 (10:33→22:57)
[2022-02-10] MEDS: memantine 5 mg tablet 10 MG PO ×2 (10:33→18:01)
[2022-02-10] MEDS: digoxin 125 mcg Tablet PO (10:34)
[2022-02-10] MEDS: sennosides-docusate Tablet 2 TAB PO ×2 (10:34→18:01)
[2022-02-10] MEDS: calcium carb-vit d 600mg/400unit 1 Tablet 1 EACH PO ×2 (10:34→18:01)
[2022-02-10] MEDS: cholecalciferol (vitamin D3) 1,000 unit Tablet 1000 UNIT PO (10:34)
[2022-02-10] MEDS: levothyroxine 150 mcg Tablet PO (10:34)
[2022-02-10] MEDS: multivitamin therapeutic Tablet 1 TAB PO (10:38)
[2022-02-10] MEDS: citalopram 20 mg Tablet 30 MG PO (10:38)
[2022-02-10] MEDS: iron polysaccharide complex 150 mg Capsule PO ×2 (10:38→18:01)
[2022-02-10] MEDS: chlorhexidine gluconate 0.12% Btl 473 mL 30 ML MUCOUS MEM (10:39)
--- NOTE | 2022-02-10 11:30 | P.PN_ITS ---
Subjective Subjective: Patient seen and evaluated this morning. Patient pleasant and follows commands. Patient currently has a sitter. Secondary to patient's dementia she has issues with aggression and noncompliance. Patient allegedly had pulled off dressings. No issues currently this morning. Patient awake and responsive. Vitals/I&O/Wt Last Vital Signs Temp 98.6 F 02/10/22 20:00 Pulse 82 02/10/22 20:00 Resp 21 H 02/10/22 20:00 BP 111/69 02/10/22 20:00 Pulse Ox 91 02/10/22 20:00 O2 Del Method 02/10/22 16:00 O2 Flow Rate 6 02/10/22 08:00 Physical Exam Narrative: Patient resting in her bed. She is awake and responsive. Follows commands. Patient's incisions were inspected and dressings have been taken off no signs of bleeding noted they are clean dry and intact with margot in place. Normal postoperative swelling and ecchymosis. Compartments soft and compressible. Patient is able to wiggle toes, plantarflex and dorsiflex ankle. Sensation tact light touch to the right lower extremity. Distal pulses palpable. Urinary Catheter Management: Egan: Cath Placed During This Visit: yes, but has since been removed by the nurse Reason for Continuing Indwelling Catheter: Acute Urinary Retention or Obstruction Urinary Catheter Date of Insertion: 02/08/22 Urinary Catheter Time of Insertion: 18:38 Date Urinary Catheter Removed: 02/10/22 Time Urinary Catheter Discontinued: 05:47 Data : 02/10/22 03:28 02/10/22 03:28 Xray Ortho: My impression: X-rays of the right femur postoperatively reviewed and show stable cephalomedullary nail with anatomic reduction of the intertrochanteric femur fracture. A&P Assessment and plan (1) Fracture, intertrochanteric, right femur: Status: Acute Qualifiers: Encounter type: initial encounter Fracture type: closed Plan Orthopedic recommendations: -Continue to monitor postoperative hemoglobin -Weightbearing as tolerated right lower extremity -PT/OT -Complete postoperative antibiotics -Advance diet as tolerated -DVT prophylaxis -Pain control -Imaging reviewed -Internal medicine on board as primary team -Discussed with nursing staff and will attempt to reapply [place] dressings -Patient currently has sitter -Social service for discharge planning Attestations Medical Necessity Statement*: Patient sustained right intertrochanteric hip fracture requiring surgery and require multiple days of hospitalization for postoperative care and therapy as well as discharge planning. 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
[2022-02-10] MEDS: acetaminophen 500 mg Tablet 1000 MG PO ×2 (13:17→22:39)
--- NOTE | 2022-02-10 14:36 | P.PN_ITS ---
Subjective Subjective: Overnight patient has been confused. She has pulled her Egan catheter and her over dressing. Seen with at bedside. states she is at her baseline mentation. Patient is awake and alert, able to have conversation and able to answer questions but has episodes of confusion. No ble eding seen at site of surgery. Vitals/I&O/Wt Last Vital Signs Temp 99.3 F 02/10/22 12:00 Pulse 90 02/10/22 12:00 Resp 16 02/10/22 12:00 BP 119/64 02/10/22 12:00 Pulse Ox 90 02/10/22 08:00 O2 Del Method 02/10/22 08:00 O2 Flow Rate 6 02/10/22 08:00 02/09/22 02/10/22 02/10/22 22:59 06:59 14:59 Intake Total 1008 / 1808 114.167 / 1922.167 Output Total 180 / 430 Balance 1008 / 1558 -65.833 / 1492.167 Weight last 48 hrs Weight 52.645 kg Physical Exam Const: COMMON NORMALS: no acute distress EXAM LIMITATIONS: altered mental status ORIENTATION/CONSCIOUSNESS: Yes awake, Yes oriented to person and Yes confused; not oriented to place and not oriented to time HENMT: COMMON NORMALS: normocephalic HEAD & SCALP: normocephalic Resp: COMMON NORMALS: normal respiratory effort, No retractions, No use of accessory muscles and clear to auscultation bilaterally AUSCULTATION: clear to auscultation bilaterally Cardio: COMMON NORMALS: regular rate, regular rhythm, S1 normal heart sound present and S2 normal heart sound present RATE: regular rate RHYTHM: regular rhythm HEART SOUNDS: S1 normal heart sound present and S2 normal heart sound present GI: COMMON NORMALS: Normal to inspection, nondistended, normoactive bowel sounds present, Soft to palpation, non-tender, No hepatosplenomegaly present, no masses and no bruits PALPATION: Yes Soft to palpation and Yes No hepatosplenomegaly present Extremity: COMMON NORMALS: no pedal edema Neuro: SENSORIUM/ORIENTATION: Yes oriented to person, No oriented to place and No oriented to time Urinary Catheter Management: Egan: Cath Placed During This Visit: yes, but has since been removed by the nurse Reason for Continuing Indwelling Catheter: Acute Urinary Retention or Obstruction Urinary Catheter Date of Insertion: 02/08/22 Urinary Catheter Time of Insertion: 18:38 Date Urinary Catheter Removed: 02/10/22 Time Urinary Catheter Discontinued: 05:47 Data : 02/10/22 03:28 02/10/22 03:28 A&P Assessment and plan (1) Fracture, intertrochanteric, right femur: Post-ORIF day 1 Physical therapy, anticoagulation, perioperative antibiotics as per orthopedics. Went down to 8.4. We will continue to monitor. Check CBC in evening. Will transfuse if hemoglobin trends below 7. Status: Acute Qualifiers: Encounter type: initial encounter Fracture type: closed (2) Fall: Mechanical. Status: Acute Qualifiers: Encounter type: initial encounter Qualified Code(s): W19.XXXA - Un specified fall, initial encounter (3) COPD (chronic obstructive pulmonary disease): No acute exacerbation. DuoNebs every 6 as needed Status: Acute (4) Hypertension: Goal blood pressure less than 140/90 mmHg with mean over 60. Hold off on nifedipine for now. Will be started the blood pressure is better postoperatively. Status: Acute Qualifiers: Hypertension type: primary hypertension Qualified Code(s): I10 - Essential (primary) hypertension (5) Alzheimer's dementia: Delirium secondary to sundowning from Alzheimer's dementia in setting of recent OR. Celexa 30 mg daily, Aricept 10 mg nightly. Can use Haldol as needed. DC Jignesh. Status: Acute (6) Acute kidney injury: Resolving. Patient took IV line out. Cannot continue fluids. Encourage oral intake. Status: Acute (7) Atrial fibrillation: Rate controlled. Continue home dose of propafenone. Continue home dose of digoxin. Not on anticoagulation given risk of advanced age and dementia. Status: Acute Plan Patient pulled IV line out. We will switch from oral IV to oral. Stop IV fluids. Stop IV antibiotics. Switch to oral Augmentin, Levaquin. Possible left lower lobe pneumonia: On minimal oxygen. Has leukocytosis. Afebrile. Pulled out IV so we will switch to oral Augmentin and Levaquin. DNR/DNI. Anticoagulation as per surgical team. NPO. Protonix for PUD prophylaxis. Discharge planning: Most likely patient will need SNF placement given advanced Alzheimer's for postoperative care. Case management alerted Attestations Medical Necessity Statement*: Requires further hospitalization for postop care while safe discharge planning discharge Time Spent in Patient Care: Greater than 35 minutes Coding Level of Care Code Acute Sewer Line Photo Inspector for [facility] Fwd Exam Detailed Diagnoses Fracture, intertrochanteric, right femur S72.141A Encounter type: initial encounter Fracture type: closed Fall W19.XXXA Encounter type: initial encounter COPD (chronic obstructive pulmonary disease) J44.9 Hypertension I10 Hypertension type: primary hypertension Alzheimer's dementia G30.9; F02.80 Acute kidney injury N17.9 Atrial fibrillation I48.91
[2022-02-10] MEDS: levoFLOXacin 500 mg Tablet PO (16:23)
[2022-02-10] MEDS: amoxicillin-clav 500-125 mg Tablet 1 TAB PO (22:39)
[2022-02-10] MEDS: donepezil 5 MG Tablet 10 MG PO (22:39)
[2022-02-11] VITALS (11 sets, daily range): BP systolic 103–151; BP diastolic 40–79; PULSE 54–80; RESP 14–24; TEMP 36.6–37.2; O2SAT 90–94
[2022-02-11 05:32] LABS: Alanine Aminotransferase 7 U/L (0-33); Albumin Level 2.5 g/dL (3.5-5.2); Alkaline Phosphatase 58 U/L (35-105); Anion Gap 13.4 (5-19); Aspartate Amino Transferase 14 U/L (0-32); Blood Urea Nitrogen 15 mg/dL (8-23); Calcium 8.7 mg/dL (8.5-10.5); Carbon Dioxide 24 mmol/L (22-29); Chloride 94 mmol/L (98-107); Globulin 2.5 g/dL (1.3-4.6); Glucose 133 mg/dL (65-115); Magnesium 1.7 mg/dL (1.7-2.3); Osmolality Calculated 267 mOsm/kg (285-295); Phosphorus 1.7 mg/dL (2.5-4.5); Potassium 4.4 mmol/L (3.5-5.1); Sodium 127 mmol/L (136-145); Total Bilirubin 0.6 mg/dL (0.15-1.2)
[2022-02-11 06:10] LABS: Basophils # 0.1 10^3/uL (0.0-0.1); Basophils % 0.4 %; Eosinophils # 0.2 10^3/uL (0.0-0.8); Eosinophils % 1.6 %; Hemoglobin 6.8 g/dL (11.5-15.3); Lymphocytes # 1.7 10^3/uL (0.8-4.8); Lymphocytes % 13.9 %; Mean Corpuscular HGB Conc 33.7 g/dL (30.0-36.0); Mean Corpuscular Hemoglobin 30.6 pg (28.0-34.0); Mean Platelet Volume 9.1 fL (7.4-10.4); Monocytes # 1.3 10^3/uL (0.2-0.9); Monocytes % 10.3 %; Neutrophils # 8.95 10^3/uL (1.8-7.7); Neutrophils % 72.8 %; Nucleated Red Blood Cells % 0 %; Platelet Count 172 10^3/cmm (130-400); Red Blood Count 2.22 10^6/uL (4.1-5.3); White Blood Count 12.3 10^3/uL (4.0-10.0)
[2022-02-11 08:32] LABS: Hematocrit 20.2 % (37.0-47.0)
--- NOTE | 2022-02-11 08:50 | PM.PN ---
Subjective Subjective: Patient seen and examined this morning. Patient's at bedside. Patient has no new complaints at this time. Patient states her right hip feels better since surgery. Her new dressing had been applied only a small amount of saturation. Patient does currently have a sitter Vitals/I&O/Wt Last Vital Signs Temp 97.9 F 02/12/22 07:50 Pulse 67 02/12/22 07:50 Resp 15 02/12/22 07:50 BP 151/80 02/12/22 07:50 Pulse Ox 96 02/12/22 07:50 O2 Del Method 02/12/22 07:50 O2 Flow Rate 6 02/11/22 20:00 02/11/22 02/12/22 02/12/22 22:59 06:59 14:59 Intake Total 470 / 830 480 / 1310 Output Total 700 / 700 300 / 1000 Balance -230 / 130 180 / 310 Weight last 48 hrs Weight 114 lb 3.2 oz Weight 116 lb 12.8 oz Physical Exam Narrative: Patient seen and examined. Right lower extremity just incision dressing is clean dry and intact with no saturation. Her right lower extremity is warm well perfused. Normal postoperative swelling and ecchymosis. Compartments soft and compressible. Patient is able to wiggle her toes plantarflex and dorsiflex ankle. Sensation tact light touch to the SPN/DPN/tibial/saphenous/sural nerve distribution. Urinary Catheter Management: Egan: Cath Placed During This Visit: yes, but has since been removed by the nurse Reason for Continuing Indwelling Catheter: Acute Urinary Retention or Obstruction Urinary Catheter Date of Insertion: 02/08/22 Urinary Catheter Time of Insertion: 18:38 Date Urinary Catheter Removed: 02/10/22 Time Urinary Catheter Discontinued: 05:47 Data : 02/12/22 05:25 02/12/22 05:25 A&P Assessment and plan (1) Fracture, intertrochanteric, right femur: Status: Acute Qualifiers: Encounter type: initial encounter Fracture type: closed Plan - Weightbearing as tolerated to the right lower extremity -Patient completed postoperative antibiotics -DVT prophylaxis -Pain control -PT/OT -Hospitalist is primary and appreciate their medical management -Dressing clean dry and intact and may be changed if saturated. -Stable from orthopedic standpoint. 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
[2022-02-11] MEDS: acetaminophen 500 mg Tablet 1000 MG PO ×3 (09:03→22:52)
[2022-02-11] MEDS: digoxin 125 mcg Tablet PO (09:15)
[2022-02-11] MEDS: propafenone 150 mg Tablet PO ×2 (09:15→20:38)
[2022-02-11] MEDS: calcium carb-vit d 600mg/400unit 1 Tablet 1 EACH PO (09:17)
[2022-02-11] MEDS: levoFLOXacin 500 mg Tablet PO (09:17)
[2022-02-11] MEDS: amoxicillin-clav 500-125 mg Tablet 1 TAB PO ×3 (09:17→20:38)
[2022-02-11] MEDS: citalopram 20 mg Tablet 30 MG PO (09:17)
[2022-02-11] MEDS: levothyroxine 150 mcg Tablet PO (09:18)
[2022-02-11] MEDS: iron polysaccharide complex 150 mg Capsule PO (09:18)
[2022-02-11] MEDS: multivitamin therapeutic Tablet 1 TAB PO (09:19)
[2022-02-11] MEDS: memantine 5 mg tablet 10 MG PO (09:19)
[2022-02-11] MEDS: aspirin 81 mg Chew Tablet PO (09:20)
[2022-02-11] MEDS: cholecalciferol (vitamin D3) 1,000 unit Tablet 1000 UNIT PO (09:21)
[2022-02-11] MEDS: sennosides-docusate Tablet 2 TAB PO (09:21)
--- NOTE | 2022-02-11 12:45 | PC.OT ---
Per RN, pt not appropriate at this time for OT tx stating pt is very confused and in a lot of pain. Pt on hold this date. Will attempt tx tomorrow.
--- NOTE | 2022-02-11 13:06 | PC.SOCIAL ---
IMM update IMM Updated with patient and family at bedside. Verbalized understanding. Copy Pg 2 provided. Initialled, dated, timed, and placed in chart.
--- NOTE | 2022-02-11 13:30 | P.PN_ITS ---
Subjective Subjective: Documents overnight. Patient continues to remain confused. and sitter at bedside. Continues to remain at baseline mentation. Sitting in chair today. Woke with physical therapy. Hemodynamically stable. Egan removed yesterday. No IV line present. States pain is controlled. There is a concern for a hematoma by the yesterday nurse. On examination not visualized. Vitals/I&O/Wt Last Vital Signs Temp 98.0 F 02/11/22 08:00 Pulse 80 02/11/22 08:00 Resp 16 02/11/22 08:00 BP 108/60 02/11/22 08:00 Pulse Ox 92 02/11/22 08:00 O2 Del Method 02/11/22 08:00 O2 Flow Rate 6 02/10/22 20:00 02/10/22 02/11/22 02/11/22 22:59 06:59 14:59 Intake Total 500 / 500 360 / 360 Output Total 100 / 100 Balance 400 / 400 360 / 360 Weight last 48 hrs Weight 52.98 kg Physical Exam Const: COMMON NORMALS: no acute distress EXAM LIMITATIONS: altered mental status ORIENTATION/CONSCIOUSNESS: Yes awake, Yes oriented to person and Yes confused; not oriented to place and not oriented to time HENMT: COMMON NORMALS: normocephalic HEAD & SCALP: normocephalic Resp: COMMON NORMALS: normal respiratory effort, No retractions, No use of accessory muscles and clear to auscultation bilaterally AUSCULTATION: clear to auscultation bilaterally Cardio: COMMON NORMALS: regular rate, regular rhythm, S1 normal heart sound present and S2 normal heart sound present RATE: regular rate RHYTHM: regular rhythm HEART SOUNDS: S1 normal heart sound present and S2 normal heart sound present GI: COMMON NORMALS: Normal to inspection, nondistended, normoactive bowel sounds present, Soft to palpation, non-tender, No hepatosplenomegaly present, no masses and no bruits PALPATION: Yes Soft to palpation and Yes No hepatosplenomegaly present Extremity: COMMON NORMALS: no pedal edema OTHER: Surgical site, covered with a clean dressing, no surrounding hematoma appreciated Neuro: SENSORIUM/ORIENTATION: Yes oriented to person, No oriented to place and No oriented to time Urinary Catheter Management: Egan: Cath Placed During This Visit: yes, but has since been removed by the nurse Reason for Continuing Indwelling Catheter: Acute Urinary Retention or Obstruction Urinary Catheter Date of Insertion: 02/08/22 Urinary Catheter Time of Insertion: 18:38 Date Urinary Catheter Removed: 02/10/22 Time Urinary Catheter Discontinued: 05:47 Data : 02/11/22 06:02 02/11/22 04:40 A&P Assessment and plan (1) Fracture, intertrochanteric, right femur: Post-ORIF day 1 Physical therapy, anticoagulation, perioperative antibiotics as per orthopedics. Went down to 8.4. We will continue to monitor. Check CBC in evening. Will transfuse if hemoglobin trends below 7. Status: Acute Qualifiers: Encounter type: initial encounter Fracture type: closed (2) Fall: Mechanical. Status: Acute Qualifiers: Encounter type: initial encounter Qualified Code(s): W19.XXXA - Unspecified fall, initial encounter (3) COPD (chronic obstructive pulmonary disease): No acute exacerbation. DuoNebs every 6 as needed Status: Acute (4) Hypertension: Goal blood pressure less than 140/90 mmHg with mean over 60. Hold off on nifedipine for now. Will be started the blood pressure is better postoperatively. Status: Acute Qualifiers: Hypertension type: primary hypertension Qualified Code(s): I10 - Essential (primary) hypertension (5) Alzheimer's dementia: Delirium secondary to sundowning from Alzheimer's dementia in setting of recent OR. Celexa 30 mg daily, Aricept 10 mg nightly. Can use Haldol as needed. DC Egan. Status: Acute (6) Acute kidney injury: Resolving. Patient took IV line out. Cannot continue fluids. Encourage oral intake. Status: Acute (7) Atrial fibrillation: Rate controlled. Continue home dose of propafenone. Continue home dose of digoxin. Not on anticoagulation given risk of advanced age and dementia. Status: Acute Plan Patient pulled IV line out. We will switch from oral IV to oral. Stop IV fluid s. Stop IV antibiotics. Switch to oral Augmentin, Levaquin. Possible left lower lobe pneumonia: On minimal oxygen. Has leukocytosis. Afebrile. Pulled out IV so we will switch to oral Augmentin and Levaquin. DNR/DNI. Anticoagulation as per surgical team. Regular diet Protonix for PUD prophylaxis. Discharge planning: Most likely patient will need SNF placement given advanced Alzheimer's for postoperative care. Case management alerted Plan for the day: Transfuse 2 unit of PRBC. Trial of a PICC line as difficult to get IV line. Stop IV pain medications. Continue to hold off on nifedipine. Continue with Aricept and Celexa. Normal saline at 50 cc/h. Regular diet. Attestations Medical Necessity Statement*: Requires further hospitalization for postoperative care, post-ORIF while safe discharge planning was sought, baseline severe Alzheimer's dementia Time Spent in Patient Care: Greater than 35 minutes Coding Level of Care Code Acute Wet Process Assistant Head Miller for [facility] Diagnoses Fracture, intertrochanteric, right femur S72.141A Encounter type: initial encounter Fracture type: closed Fall W19.XXXA Encounter type: initial encounter COPD (chronic obstructive pulmonary disease) J44.9 Hypertension I10 Hypertension type: primary hypertension Alzheimer's dementia G30.9; F02.80 Acute kidney injury N17.9 Atrial fibrillation I48.91
[2022-02-11] MEDS: donepezil 5 MG Tablet 10 MG PO (20:39)
[2022-02-11] MEDS: sodium chloride 0.9% 1,000 ML 50 ML IV (22:52)
[2022-02-12] VITALS (9 sets, daily range): BP systolic 151–175; BP diastolic 74–89; PULSE 67–88; RESP 15–20; TEMP 36.5–37.2; O2SAT 93–97
[2022-02-12 06:09] LABS: Basophils # 0.1 10^3/uL (0.0-0.1); Basophils % 0.6 %; Eosinophils # 0.3 10^3/uL (0.0-0.8); Eosinophils % 2.8 %; Hemoglobin 9.8 g/dL (11.5-15.3); Lymphocytes # 1.8 10^3/uL (0.8-4.8); Lymphocytes % 17.8 %; Mean Corpuscular HGB Conc 33.8 g/dL (30.0-36.0); Mean Corpuscular Hemoglobin 30.7 pg (28.0-34.0); Mean Corpuscular Volume 90.9 fl (81-99); Mean Platelet Volume 8.8 fL (7.4-10.4); Monocytes # 1.2 10^3/uL (0.2-0.9); Monocytes % 11.6 %; Neutrophils # 6.66 10^3/uL (1.8-7.7); Neutrophils % 65.8 %; Nucleated Red Blood Cells % 0.2 %; Platelet Count 181 10^3/cmm (130-400); Red Blood Count 3.19 10^6/uL (4.1-5.3); Red Cell Distribution Width 12.8 % (12.1-15.1); White Blood Count 10.1 10^3/uL (4.0-10.0)
[2022-02-12] MEDS: enoxaparin 30 mg/0.3 mL Syringe SUBCUT (06:24)
[2022-02-12] MEDS: acetaminophen 500 mg Tablet 1000 MG PO ×2 (06:24→16:12)
[2022-02-12] MEDS: levoFLOXacin 500 mg Tablet PO (06:24)
[2022-02-12 06:41] LABS: Alanine Aminotransferase < 5 U/L (0-33); Albumin Level 2.6 g/dL (3.5-5.2); Alkaline Phosphatase 77 U/L (35-105); Aspartate Amino Transferase 16 U/L (0-32); Blood Urea Nitrogen 10 mg/dL (8-23); Calcium 8.5 mg/dL (8.5-10.5); Carbon Dioxide 25 mmol/L (22-29); Chloride 92 mmol/L (98-107); Globulin 2.2 g/dL (1.3-4.6); Glucose 121 mg/dL (65-115); Osmolality Calculated 260 mOsm/kg (285-295); Sodium 125 mmol/L (136-145); Total Bilirubin 1.2 mg/dL (0.15-1.2); Total Protein 4.8 g/dL (6.6-8.7)
[2022-02-12 06:48] LABS: Anion Gap 11.9 (5-19); Potassium 3.9 mmol/L (3.5-5.1)
--- NOTE | 2022-02-12 07:54 | PM.PN ---
Subjective Subjective: Patient seen and examined this morning. Awake alert and follows commands. Sitter at bedside. Patient has no new complaints at this time. Patient to work with PT/OT. Weight-bear as tolerated right lower extremity Vitals/I&O/Wt Last Vital Signs Temp 97.9 F 02/12/22 07:50 Pulse 67 02/12/22 07:50 Resp 15 02/12/22 07:50 BP 151/80 02/12/22 07:50 Pulse Ox 96 02/12/22 07:50 O2 Del Method 02/12/22 07:50 O2 Flow Rate 6 02/11/22 20:00 02/11/22 02/12/22 02/12/22 22:59 06:59 14:59 Intake Total 470 / 830 480 / 1310 Output Total 700 / 700 300 / 1000 Balance -230 / 130 180 / 310 Weight last 48 hrs Weight 114 lb 3.2 oz Weight 116 lb 12.8 oz Physical Exam Narrative: Patient seen and examined. Right lower extremity just incision dressing is clean dry and intact with no saturation. Her right lower extremity is warm well perfused. Normal postoperative swelling and ecchymosis. Compartments soft and compressible. Patient is able to wiggle her toes plantarflex and dorsiflex ankle. Sensation tact light touch to the SPN/DPN/tibial/saphenous/sural nerve distribution. Urinary Catheter Management: Egan: Cath Placed During This Visit: yes, but has since been removed by the nurse Reason for Continuing Indwelling Catheter: Acute Urinary Retention or Obstruction Urinary Catheter Date of Insertion: 02/08/22 Urinary Catheter Time of Insertion: 18:38 Date Urinary Catheter Removed: 02/10/22 Time Urinary Catheter Discontinued: 05:47 Data : 02/12/22 05:25 02/12/22 05:25 A&P Assessment and plan (1) Fracture, intertrochanteric, right femur: Status: Acute Qualifiers: Encounter type: initial encounter Fracture type: closed Plan - Weightbearing as tolerated right lower extremity -DVT prophylaxis?Lovenox inpatient, recommend 30 days of Lovenox at discharge -PT/OT -Leave dressings on and in place unless saturated they may be changed -Internal medicine as primary team and appreciate medical management -Pain control -Stable from orthopedic standpoint for discharge -Follow-up in my office in 2 weeks -Any questions pertaining to patient's care for further contact myself Attestations Medical Necessity Statement*: Patient sustained right hip fracture underwent surgical intervention requiring postoperative monitoring and therapy Coding Level of Care Code Acute Claim Attorney for [facility] Diagnoses Fracture, intertrochanteric, right femur S72.141A Encounter type: initial encounter Fracture type: closed Time Spent (min) 25
[2022-02-12] MEDS: calcium carb-vit d 600mg/400unit 1 Tablet 1 EACH PO ×2 (10:02→16:12)
[2022-02-12] MEDS: amoxicillin-clav 500-125 mg Tablet 1 TAB PO ×2 (10:02→16:14)
[2022-02-12] MEDS: memantine 5 mg tablet 10 MG PO ×2 (10:02→16:14)
[2022-02-12] MEDS: citalopram 20 mg Tablet 30 MG PO (10:03)
[2022-02-12] MEDS: aspirin 81 mg Chew Tablet PO (10:03)
[2022-02-12] MEDS: digoxin 125 mcg Tablet PO (10:03)
[2022-02-12] MEDS: multivitamin therapeutic Tablet 1 TAB PO (10:04)
[2022-02-12] MEDS: cholecalciferol (vitamin D3) 1,000 unit Tablet 1000 UNIT PO (10:05)
[2022-02-12] MEDS: sennosides-docusate Tablet 2 TAB PO (10:05)
[2022-02-12] MEDS: iron polysaccharide complex 150 mg Capsule PO ×2 (10:05→16:14)
[2022-02-12] MEDS: levothyroxine 150 mcg Tablet PO (10:06)
--- NOTE | 2022-02-12 12:34 | PC.OT ---
Patient alert and sitting in chair eating lunch. Sitter reports patient had just finished working with PT where they assisted to EOB<BSC<Chair with patient tolerating this well. However, patient reports being weak . Therapist agrees to hold tx d/t mealtime and just finishing PT. Will attempt tx first thing in the morning. Emmanuel Cuello, OTR/L
--- NOTE | 2022-02-12 12:49 | P.PN_ITS ---
Subjective Subjective: No evidence overnight. Patient has remained hemodynamically stable. Patient is a lot more awake and alert. Calm overnight. Sitter at bedside. Eating appropriately at baseline. Working with physical therapy. Received 2 units of blood transfusion yesterday. Vitals/I&O/Wt Last Vital Signs Temp 97.8 F 02/12/22 11:37 Pulse 74 02/12/22 11:37 Resp 15 02/12/22 11:37 BP 151/74 02/12/22 11:37 Pulse Ox 94 02/12/22 11:37 O2 Del Method 02/12/22 11:37 O2 Flow Rate 6 02/11/22 20:00 02/11/22 02/12/22 02/12/22 22:59 06:59 14:59 Intake Total 470 / 830 480 / 1310 360 / 360 Output Total 700 / 700 300 / 1000 Balance -230 / 130 180 / 310 360 / 360 Weight last 48 hrs Weight 51.8 kg Weight 52.98 kg Physical Exam Const: COMMON NORMALS: no acute distress EXAM LIMITATIONS: altered mental status ORIENTATION/CONSCIOUSNESS: Yes awake, Yes oriented to person and Yes confused; not oriented to place and not oriented to time HENMT: COMMON NORMALS: normocephalic HEAD & SCALP: normocephalic Resp: COMMON NORMALS: normal respiratory effort, No retractions, No use of accessory muscles and clear to auscultation bilaterally AUSCULTATION: clear to auscultation bilaterally Cardio: COMMON NORMALS: regular rate, regular rhythm, S1 normal heart sound present and S2 normal heart sound present RATE: regular rate RHYTHM: regular rhythm HEART SOUNDS: S1 normal heart sound present and S2 normal heart sound present GI: COMMON NORMALS: Normal to inspection, nondistended, normoactive bowel sounds present, Soft to palpation, non-tender, No hepatosplenomegaly present, no masses and no bruits PALPATION: Yes Soft to palpation and Yes No hepatosplenomegaly present Extremity: COMMON NORMALS: no pedal edema OTHER: Surgical site, covered with a clean dressing, no surrounding hematoma appreciated Neuro: SENSORIUM/ORIENTATION: Yes oriented to person, No oriented to place and No oriented to time Urinary Catheter Management: Egan: Cath Placed During This Visit: yes, but has since been removed by the nurse Reason for Continuing Indwelling Catheter: Acute Urinary Retention or Obstruction Urinary Catheter Date of Insertion: 02/08/22 Urinary Catheter Time of Insertion: 18:38 Date Urinary Catheter Removed: 02/10/22 Time Urinary Catheter Discontinued: 05:47 Data : 02/12/22 05:25 02/12/22 05:25 A&P Assessment and plan (1) Fracture, intertrochanteric, right femur: Post-ORIF day 1 Physical therapy, anticoagulation, perioperative antibiotics as per orthopedics. Went down to 8.4. We will continue to monitor. Check CBC in evening. Will transfuse if hemoglobin trends below 7. Status: Acute Qualifiers: Encounter type: initial encounter Fracture type: closed (2) Fall: Mechanical. Status: Acute Qualifiers: Encounter type: initial encounter Qualified Code(s): W19.XXXA - Unspecified fall, initial encounter (3) COPD (chronic obstructive pulmonary disease): No acute exacerbation. DuoNebs every 6 as needed Status: Acute (4) Hypertension: Goal blood pressure less than 140/90 mmHg with mean over 60. Restart nifedipine. At home dose. Uptitrate accordingly. Status: Acute Qualifiers: Hypertension type: primary hypertension Qualified Code(s): I10 - Essential (primary) hypertension (5) Alzheimer's dementia: Delirium secondary to sundowning from Alzheimer's dementia in setting of recent OR. Celexa 30 mg daily, Aricept 10 mg nightly. Can use Haldol as needed. CAM Egan. Status: Acute (6) Acute kidney injury: Resolved. Stop IV fluids. Monitor BMP daily. Status: Acute (7) Atrial fibrillation: Rate controlled. Continue home dose of propafenone. Continue home dose of digoxin. Not on anticoagulation given risk of advanced age and dementia. Status: Acute Plan Possible left lower lobe pneumonia: On room air now. Has leukocytosis. Afebrile. Pulled out IV so we will switch to oral Augmentin and Levaquin. Will finish a 5-day course. DNR/DNI. Anticoagulation as per surgical team. Regular diet Protonix for PUD prophylaxis. Discharge planning: Most likely patient will need SNF placement given advanced Alzheimer's for postoperative care. Case management alerted Plan for the day: Hemoglobin stable after transfusion. Regular diet Restart nifedipine as blood pressures elevated now. Continue with Aricept, Celexa. Stop IV fluids. Start on salt tablet 1 g twice daily. Monitor BMP CBC daily. Discharge planning Attestations Medical Necessity Statement*: Requires further hospitalization for postoperative care while safe discharge planning is sought. 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
[2022-02-12] MEDS: propafenone 150 mg Tablet PO (16:11)
[2022-02-12] MEDS: sodium chloride 1 gm Tablet PO (16:14)
[2022-02-12] MEDS: pantoprazole 40 mg SDV IVP (22:26)
[2022-02-13] VITALS (8 sets, daily range): BP systolic 128–160; BP diastolic 64–83; PULSE 69–84; RESP 16–20; TEMP 36.7–37.2; O2SAT 95–96
[2022-02-13] MEDS: enoxaparin 40 mg/0.4 mL Syringe SUBCUT (05:14)
[2022-02-13] MEDS: acetaminophen 500 mg Tablet 1000 MG PO ×3 (05:26→21:21)
[2022-02-13] MEDS: levoFLOXacin 500 mg Tablet PO (05:26)
--- NOTE | 2022-02-13 05:31 | PC.NURSE ---
MEDS Last evening pt would not take any of her po meds for me. Just kept pushing them away and said she did not want them. This morning took meds without any difficulty. Chews them before swallowing
[2022-02-13 08:11] LABS: Basophils # 0.1 10^3/uL (0.0-0.1); Basophils % 0.5 %; Eosinophils # 0.3 10^3/uL (0.0-0.8); Eosinophils % 2.6 %; Hematocrit 27.7 % (37.0-47.0); Hemoglobin 9.7 g/dL (11.5-15.3); Lymphocytes # 1.8 10^3/uL (0.8-4.8); Lymphocytes % 18.9 %; Mean Corpuscular Hemoglobin 30.9 pg (28.0-34.0); Mean Corpuscular Volume 88.2 fl (81-99); Mean Platelet Volume 8.7 fL (7.4-10.4); Monocytes # 1.1 10^3/uL (0.2-0.9); Monocytes % 11.8 %; Neutrophils # 6.19 10^3/uL (1.8-7.7); Neutrophils % 64.2 %; Nucleated Red Blood Cells % 0 %; Platelet Count 203 10^3/cmm (130-400); Red Blood Count 3.14 10^6/uL (4.1-5.3); Red Cell Distribution Width 12.5 % (12.1-15.1); White Blood Count 9.6 10^3/uL (4.0-10.0)
[2022-02-13 08:29] LABS: Alanine Aminotransferase < 5 U/L (0-33); Albumin Level 2.2 g/dL (3.5-5.2); Alkaline Phosphatase 56 U/L (35-105); Anion Gap 9.8 (5-19); Aspartate Amino Transferase 18 U/L (0-32); Blood Urea Nitrogen 9 mg/dL (8-23); Calcium 8.3 mg/dL (8.5-10.5); Carbon Dioxide 27 mmol/L (22-29); Chloride 93 mmol/L (98-107); Globulin 2.4 g/dL (1.3-4.6); Glucose 104 mg/dL (65-115); Osmolality Calculated 261 mOsm/kg (285-295); Potassium 3.8 mmol/L (3.5-5.1); Sodium 126 mmol/L (136-145); Total Bilirubin 0.8 mg/dL (0.15-1.2); Total Protein 4.6 g/dL (6.6-8.7)
--- NOTE | 2022-02-13 08:36 | PC.SOCIAL ---
IMM update IMM Updated with patient and family at bedside. Verbalized an understanding. Copy Pg 2 provided. Initialled, dated, timed, and placed in chart.
[2022-02-13] MEDS: sodium chloride 0.9% 1,000 ML 50 ML IV (09:11)
[2022-02-13] MEDS: propafenone 150 mg Tablet PO ×3 (09:45→20:50)
[2022-02-13] MEDS: amoxicillin-clav 500-125 mg Tablet 1 TAB PO ×3 (09:45→20:43)
[2022-02-13] MEDS: sennosides-docusate Tablet 2 TAB PO (09:46)
[2022-02-13] MEDS: memantine 5 mg tablet 10 MG PO ×2 (09:46→16:06)
[2022-02-13] MEDS: NIFEdipine ER (24 hr) 30 mg Tablet 60 MG PO (09:46)
[2022-02-13] MEDS: calcium carb-vit d 600mg/400unit 1 Tablet 1 EACH PO ×2 (09:46→15:57)
[2022-02-13] MEDS: citalopram 20 mg Tablet 30 MG PO (09:46)
[2022-02-13] MEDS: digoxin 125 mcg Tablet PO (09:47)
[2022-02-13] MEDS: iron polysaccharide complex 150 mg Capsule PO ×2 (09:47→16:05)
[2022-02-13] MEDS: sodium chloride 1 gm Tablet PO ×2 (09:47→15:57)
[2022-02-13] MEDS: aspirin 81 mg Chew Tablet PO (09:47)
[2022-02-13] MEDS: multivitamin therapeutic Tablet 1 TAB PO (09:47)
[2022-02-13] MEDS: levothyroxine 150 mcg Tablet PO (09:47)
--- NOTE | 2022-02-13 10:06 | PC.OT ---
OT treatment attempted. Therapist spoke with RN, Mariann, who stated patient had a cardiac event with 3 second pause this morning with heart monitor. RN requesting to hold tx this am. KURTIS Reyes/Glynn
[2022-02-13 11:10] LABS: Digoxin 1.2 ng/mL (0.6-1.2)
--- NOTE | 2022-02-13 12:33 | PM.PN ---
Subjective Subjective: No acute events overnight. Patient remains at her baseline mentation. at bedside. No episodes of agitation. Blood pressure slightly elevated. Hemoglobin stable. No active signs of bleeding. Today morning on telemetry patient was found to have variable heart block. For now it has been difficult to maintain the telemetry monitoring on patient. Vitals/I&O/Wt Last Vital Signs Temp 98.9 F 02/13/22 08:00 Pulse 82 02/13/22 08:00 Resp 16 02/13/22 08:00 BP 149/78 02/13/22 08:00 Pulse Ox 96 02/13/22 08:00 O2 Del Method 02/13/22 08:00 O2 Flow Rate 6 02/11/22 20:00 02/12/22 02/13/22 02/13/22 22:59 06:59 14:59 Intake Total 1000 / 1360 300 / 1660 240 / 240 Output Total 0 / 0 0 / 0 Balance 1000 / 1360 300 / 1660 240 / 240 Weight last 48 hrs Weight 51.8 kg Physical Exam Const: COMMON NORMALS: no acute distress EXAM LIMITATIONS: altered mental status ORIENTATION/CONSCIOUSNESS: Yes awake, Yes oriented to person and Yes confused; not oriented to place and not oriented to time HENMT: COMMON NORMALS: normocephalic HEAD & SCALP: normocephalic Resp: COMMON NORMALS: normal respiratory effort, No retractions, No use of accessory muscles and clear to auscultation bilaterally AUSCULTATION: clear to auscultation bilaterally Cardio: COMMON NORMALS: regular rate, regular rhythm, S1 normal heart sound present and S2 normal heart sound present RATE: regular rate RHYTHM: regular rhythm HEART SOUNDS: S1 normal heart sound present and S2 normal heart sound present GI: COMMON NORMALS: Normal to inspection, nondistended, normoactive bowel sounds present, Soft to palpation, non-tender, No hepatosplenomegaly present, no masses and no bruits PALPATION: Yes Soft to palpation and Yes No hepatosplenomegaly present Extremity: COMMON NORMALS: no pedal edema OTHER: Surgical site, covered with a clean dressing, no surrounding hematoma appreciated Neuro: SENSORIUM/ORIENTATION: Yes oriented to person, No oriented to place and No oriented to time Urinary Catheter Management: Egan: Cath Placed During This Visit: yes, but has since been removed by the nurse Reason for Continuing Indwelling Catheter: Acute Urinary Retention or Obstruction Urinary Catheter Date of Insertion: 02/08/22 Urinary Catheter Time of Insertion: 18:38 Date Urinary Catheter Removed: 02/10/22 Time Urinary Catheter Discontinued: 05:47 Data : 02/13/22 07:50 02/13/22 07:50 A&P Assessment and plan (1) Fracture, intertrochanteric, right femur: Post-ORIF day. Underwent ORIF on 02/09 Physical therapy, anticoagulation, perioperative antibiotics as per orthopedics. Post monitor blood transfusion. Hemoglobin stable. Will transfuse if hemoglobin trends below 7. Status: Acute Qualifiers: Encounter type: initial encounter Fracture type: closed (2) Fall: Mechanical. Variable heart block seen on telemetry today cannot rule out arrhythmia as etiology. Status: Acute Qualifiers: Encounter type: initial encounter Qualified Code(s): W19.XXXA - Unspecified fall, initial encounter (3) Atrial fibrillation: Rate controlled. Continue home dose of propafenone. Not on anticoagulation given risk of advanced age and dementia. Status: Acute (4) Heart block atrioventricular: Seen on telemetry today. Till now it has been difficult to maintain telemetry on patient because of her mentation. Care discussed in detail with Dr. Gomez. Hold off on digoxin for now. Continue propafenone. Repeat dig level. Continue telemetry. Keep potassium around 4, magnesium over 2 Discussed in detail with patient's DPOA/. He is okay with pacemaker implantation if indicated. Status: Acute (5) COPD (chronic obstructive pulmonary disease): No acute exacerbation. DuoNebs every 6 as needed Status: Acute (6) Hypertension: Goal blood pressure less than 140/90 mmHg with mean over 60. Increase nifedipine to 60 mg daily. Status: Acute Qualifiers: Hypertension type: primary hypertension Qualified Code(s): I10 - Essential (primary) hypertension (7) Alzheimer's dementia: Delirium secondary to sundowning from Alzheimer's dementia in setting of recent OR. Celexa 30 mg daily, Aricept 10 mg nightly. Can use Haldol as needed. CAM Egan. Status: Acute (8) Acute kidney injury: Resolved. Stop IV fluids. Monitor BMP daily. Status: Acute Plan Possible left lower lobe pneumonia: On room air now. Has leukocytosis. Afebrile. Pulled out IV so we will switch to oral Augmentin and Levaquin. Will finish a 5-day course. DNR/DNI. Anticoagulation as per surgical team. Regular diet Protonix for PUD prophylaxis. Discharge planning: Most likely patient will need SNF placement given advanced Alzheimer's for postoperative care. 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
[2022-02-13] MEDS: chlorhexidine gluconate 0.12% Btl 473 mL 30 ML MUCOUS MEM (20:43)
[2022-02-13] MEDS: donepezil 5 MG Tablet 10 MG PO (20:43)
[2022-02-14] VITALS (7 sets, daily range): BP systolic 110–174; BP diastolic 49–72; PULSE 69–78; RESP 16–18; TEMP 36.1–36.7; O2SAT 95–98
[2022-02-14 05:34] LABS: Basophils # 0.1 10^3/uL (0.0-0.1); Basophils % 0.8 %; Eosinophils # 0.3 10^3/uL (0.0-0.8); Eosinophils % 3.7 %; Hematocrit 30.8 % (37.0-47.0); Hemoglobin 10.6 g/dL (11.5-15.3); Lymphocytes # 1.4 10^3/uL (0.8-4.8); Lymphocytes % 16.5 %; Mean Corpuscular HGB Conc 34.4 g/dL (30.0-36.0); Mean Corpuscular Hemoglobin 30.5 pg (28.0-34.0); Mean Corpuscular Volume 88.8 fl (81-99); Mean Platelet Volume 8.2 fL (7.4-10.4); Monocytes % 11.9 %; Neutrophils # 5.66 10^3/uL (1.8-7.7); Neutrophils % 64.7 %; Nucleated Red Blood Cells % 0 %; Platelet Count 224 10^3/cmm (130-400); Red Blood Count 3.47 10^6/uL (4.1-5.3); Red Cell Distribution Width 12.7 % (12.1-15.1); White Blood Count 8.7 10^3/uL (4.0-10.0)
[2022-02-14] MEDS: enoxaparin 40 mg/0.4 mL Syringe SUBCUT (05:46)
[2022-02-14] MEDS: acetaminophen 500 mg Tablet 1000 MG PO ×3 (05:47→20:25)
[2022-02-14] MEDS: levoFLOXacin 500 mg Tablet PO (05:47)
[2022-02-14 05:48] LABS: Digoxin 0.6 ng/mL (0.6-1.2)
[2022-02-14 06:00] LABS: Alanine Aminotransferase 10 U/L (0-33); Albumin Level 2.8 g/dL (3.5-5.2); Alkaline Phosphatase 65 U/L (35-105); Aspartate Amino Transferase 24 U/L (0-32); Blood Urea Nitrogen 6 mg/dL (8-23); Calcium 8.4 mg/dL (8.5-10.5); Carbon Dioxide 25 mmol/L (22-29); Chloride 97 mmol/L (98-107); Globulin 2.4 g/dL (1.3-4.6); Glucose 126 mg/dL (65-115); Osmolality Calculated 277 mOsm/kg (285-295); Sodium 134 mmol/L (136-145); Total Bilirubin 0.9 mg/dL (0.15-1.2); Total Protein 5.2 g/dL (6.6-8.7)
[2022-02-14 06:05] LABS: Anion Gap 15.5 (5-19); Potassium 3.5 mmol/L (3.5-5.1)
[2022-02-14] MEDS: cholecalciferol (vitamin D3) 1,000 unit Tablet 1000 UNIT PO (09:47)
[2022-02-14] MEDS: pantoprazole DR 40 mg Tablet PO (09:47)
[2022-02-14] MEDS: sennosides-docusate Tablet 2 TAB PO ×2 (09:47→17:03)
[2022-02-14] MEDS: sodium chloride 1 gm Tablet PO (09:47)
[2022-02-14] MEDS: NIFEdipine ER (24 hr) 30 mg Tablet 60 MG PO (09:47)
[2022-02-14] MEDS: propafenone 150 mg Tablet PO ×3 (09:47→20:24)
[2022-02-14] MEDS: iron polysaccharide complex 150 mg Capsule PO ×2 (09:47→17:03)
[2022-02-14] MEDS: aspirin 81 mg Chew Tablet PO (09:47)
[2022-02-14] MEDS: memantine 5 mg tablet 10 MG PO ×2 (09:47→17:03)
[2022-02-14] MEDS: chlorhexidine gluconate 0.12% Btl 473 mL 30 ML MUCOUS MEM ×3 (09:48→17:03)
[2022-02-14] MEDS: levothyroxine 150 mcg Tablet PO (09:48)
[2022-02-14] MEDS: citalopram 20 mg Tablet 30 MG PO (09:48)
[2022-02-14] MEDS: calcium carb-vit d 600mg/400unit 1 Tablet 1 EACH PO ×2 (09:48→17:03)
[2022-02-14] MEDS: multivitamin therapeutic Tablet 1 TAB PO (09:48)
[2022-02-14] MEDS: amoxicillin-clav 500-125 mg Tablet 1 TAB PO ×3 (09:49→20:26)
[2022-02-14] MEDS: mupirocin oint 22 gm 1 APPLIC NASAL (09:49)
[2022-02-14] MEDS: sodium chloride 0.9% 1,000 ML 50 ML IV (09:50)
[2022-02-14] MEDS: tamsulosin 0.4 mg Capsule PO (12:53)
[2022-02-14] MEDS: lanolin oint 7 gm 1 APPLIC TOPICAL (12:58)
--- NOTE | 2022-02-14 13:01 | PM.PN ---
Subjective Subjective: No acute events overnight. Patient did have urinary retention overnight. Found to have 600 cc of urine on bladder scan. On placing Egan 490 was evacuated. Otherwise no new complaints. Has remained at baseline mentation. No further events of bradycardia or heart block on telemetry overnight. Vitals/I&O/Wt Last Vital Signs Temp 97.8 F 02/14/22 12:00 Pulse 78 02/14/22 12:00 Resp 17 02/14/22 12:00 BP 147/72 02/14/22 12:00 Pulse Ox 98 02/14/22 12:00 O2 Del Method 02/14/22 12:00 O2 Flow Rate 6 02/11/22 20:00 02/13/22 02/14/22 02/14/22 22:59 06:59 14:59 Intake Total 550 / 910 300 / 1210 510 / 510 Output Total 180 / 180 550 / 730 Balance 370 / 730 -250 / 480 510 / 510 Physical Exam Const: COMMON NORMALS: no acute distress EXAM LIMITATIONS: altered mental status ORIENTATION/CONSCIOUSNESS: Yes awake, Yes oriented to person and Yes confused; not oriented to place and not oriented to time HENMT: COMMON NORMALS: normocephalic HEAD & SCALP: normocephalic Resp: COMMON NORMALS: normal respiratory effort, No retractions, No use of accessory muscles and clear to auscultation bilaterally AUSCULTATION: clear to auscultation bilaterally Cardio: COMMON NORMALS: regular rate, regular rhythm, S1 normal heart sound present and S2 normal heart sound present RATE: regular rate RHYTHM: regular rhythm HEART SOUNDS: S1 normal heart sound present and S2 normal heart sound present GI: COMMON NORMALS: Normal to inspection, nondistended, normoactive bowel sounds present, Soft to palpation, non-tender, No hepatosplenomegaly present, no masses and no bruits PALPATION: Yes Soft to palpation and Yes No hepatosplenomegaly present Extremity: COMMON NORMALS: no pedal edema OTHER: Surgical site, covered with a clean dressing, no surrounding hematoma appreciated Neuro: SENSORIUM/ORIENTATION: Yes oriented to person, No oriented to place and No oriented to time Urinary Catheter Management: Egan: Cath Placed During This Visit: yes, but has since been removed by the nurse Reason for Continuing Indwelling Catheter: Acute Urinary Retention or Obstruction Urinary Catheter Date of Insertion: 02/14/22 Urinary Catheter Time of Insertion: 05:00 Date Urinary Catheter Removed: 02/10/22 Time Urinary Catheter Discontinued: 05:47 Data : 02/14/22 05:23 02/14/22 05:23 A&P Assessment and plan (1) Fracture, intertrochanteric, right femur: Post-ORIF day. Underwent ORIF on 02/09 Physical therapy, anticoagulation, perioperative antibiotics as per orthopedics. Post monitor blood transfusion. Hemoglobin stable. Will transfuse if hemoglobin trends below 7. Status: Acute Qualifiers: Encounter type: initial encounter Fracture type: closed (2) Fall: Mechanical. Variable heart block seen on telemetry today cannot rule out arrhythmia as etiology. Status: Acute Qualifiers: Encounter type: initial encounter Qualified Code(s): W19.XXXA - Unspecified fall, initial encounter (3) Atrial fibrillation: Rate controlled. Continue home dose of propafenone. Not on anticoagulation given risk of advanced age and dementia. Status: Acute (4) Heart block atrioventricular: Seen on telemetry today. Till now it has been difficult to maintain telemetry on patient because of her mentation. Care discussed in detail with Dr. Gomez. Hold off on digoxin for now. Continue propafenone. Digoxin levels 0.6 today. No further episodes on telemetry. Will restart digoxin at 125 mcg every other day dose. Continue telemetry. Keep potassium around 4, magnesium over 2 Discussed in detail with patient's DPOA/. He is okay with pacemaker implantation if indicated. Status: Acute (5) COPD (chronic obstructive pulmonary disease): No acute exacerbation. DuoNebs every 6 as needed Status: Acute (6) Hypertension: Goal blood pressure less than 140/90 mmHg with mean over 60. Continue with nifedipine at 60 mg daily. Status: Acute Qualifiers: Hypertension type: primary hypertension Qualified Code(s): I10 - Essential (primary) hypertension (7) Alzheimer's dementia: Delirium secondary to sundowning from Alzheimer's dementia in setting of recent OR. Celexa 30 mg daily, Aricept 10 mg nightly. Can use Haldol as needed. DC Jignesh. Status: Acute (8) Acute kidney injury: Resolved. Stop IV fluids. Monitor BMP daily. Status: Acute Plan Possible left lower lobe pneumonia: On room air now. Has leukocytosis. Afebrile. Pulled out IV so we will switch to oral Augmentin and Levaquin. Will finish a 5-day course. DNR/DNI. Anticoagulation as per surgical team. Regular diet Protonix for PUD prophylaxis. Discharge planning: Most likely patient will need SNF placement given advanced Alzheimer's for postoperative care. Case management alerted Plan for the day: Restart digoxin at 125 mcg every other day from tomorrow. Continue monitoring telemetry. Physical therapy. Discharge planning to SNF. 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
[2022-02-14 14:44] LABS: SARS Covid-2 Antigen Negative (Negative)
[2022-02-14] MEDS: donepezil 5 MG Tablet 10 MG PO (20:25)
[2022-02-15] VITALS: BP 101/64; PULSE 74; RESP 17; TEMP 36.6; O2SAT 95
[2022-02-15 04:00] VITALS: BP 138/67; PULSE 75; RESP 17; TEMP 36.6; O2SAT 97
[2022-02-15] MEDS: acetaminophen 500 mg Tablet 1000 MG PO ×2 (05:03→14:23)
[2022-02-15] MEDS: levoFLOXacin 500 mg Tablet PO (05:03)
[2022-02-15] MEDS: enoxaparin 40 mg/0.4 mL Syringe SUBCUT (05:04)
[2022-02-15] MEDS: TRAMadol 50 mg Tablet PO (05:55)
[2022-02-15 08:00] VITALS: BP 98/58; PULSE 81; RESP 16; O2SAT 100
[2022-02-15] MEDS: aspirin 81 mg Chew Tablet PO (08:38)
[2022-02-15] MEDS: memantine 5 mg tablet 10 MG PO (08:38)
[2022-02-15] MEDS: digoxin 125 mcg Tablet PO (08:39)
[2022-02-15] MEDS: citalopram 20 mg Tablet 30 MG PO (08:39)
[2022-02-15] MEDS: sennosides-docusate Tablet 2 TAB PO (08:39)
[2022-02-15] MEDS: levothyroxine 150 mcg Tablet PO (08:39)
[2022-02-15] MEDS: multivitamin therapeutic Tablet 1 TAB PO (08:39)
[2022-02-15] MEDS: tamsulosin 0.4 mg Capsule PO (08:39)
[2022-02-15] MEDS: sodium chloride 1 gm Tablet PO (08:39)
[2022-02-15] MEDS: cholecalciferol (vitamin D3) 1,000 unit Tablet 1000 UNIT PO (08:40)
[2022-02-15] MEDS: calcium carb-vit d 600mg/400unit 1 Tablet 1 EACH PO (08:40)
[2022-02-15] MEDS: iron polysaccharide complex 150 mg Capsule PO (08:53)
--- NOTE | 2022-02-15 09:32 | P.DS_ITS ---
Discharge Providers Date of Admission: 02/08/22 19:28 Date of Discharge: February 15, 2022 Attending Provider at Admission: Steve Mcmahon MD Attending Provider at Discharge: Evelia Lopez MD Primary Care Provider: Kelly Matias APN Diagnoses at Discharge Discharge Diagnosis (1) Fracture, intertrochanteric, right femur: Status: Acute Qualifiers: Encounter type: initial encounter Fracture type: closed (2) Fall: Status: Acute Qualifiers: Encounter type: initial encounter Qualified Code(s): W19.XXXA - Unspecified fall, initial encounter (3) Atrial fibrillation: Status: Acute (4) Heart block atrioventricular: Status: Acute (5) COPD (chronic obstructive pulmonary disease): Status: Acute (6) Hypertension: Status: Acute Qualifiers: Hypertension type: primary hypertension Qualified Code(s): I10 - Essential (primary) hypertension (7) Alzheimer's dementia: Status: Acute (8) Acute kidney injury: Status: Acute Reason for Visit Reason for Visit: FALL/ HIP AND KNEE PAIN Brief History: Tram Macdonald is a 76 year old female with a past medical history of dementia, history of atrial fibrillation on anticoagulation, COPD who presents [facility] for fall.? Currently she is alert to person, not to place, not to time, she keeps asking me why she is here in the hospital, I am able to tell her that she has a hip fracture, and that she needs surgery, but she continues to repeat her questioning.? Patient's is at bedside, tells me that she has severe dementia, at baseline she is able to ambulate to some degree, she has not had any any major falls except this morning, she is able to feed herself, she is able to recognize her , but has significant short-term and long-term memory loss.? He tells me that this afternoon, he was out power washing, the last time he saw his was roughly an hour ago, he found his outside, he tells me that when he came up on her, no seizure-like episodes no facial no slurring of words, she was not unconscious, she was complaining of hip pain.? The fall was unwitnessed, Hospital Course Hospital Course Patient presented to the hospital with a fall. She was taken for ORIF of hip right side on 02/09/2022. 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 Throughout hospital stay patient has been confused. states that she is at her baseline of mentation. Patient able to have conversation and able to answer questions but does have episodes of confusion. She was also found to have a possible left lower lobe pneumonia and was placed on Augmentin and Levaquin to complete a 5-day course. Antibiotics were started on 02/10 and ended on 02/15. Patient is on room air. She also received 1 unit of blood transfusion during stay for anemia 2/2 to operative blood loss. Hb trending up and stable. During hospital stay she was continued on home dose of propafenone for her atrial fibrillation and initially on home dose of digoxin. It is difficult to maintain patient on telemetry because of her mentation. Possible AV block seen on telemetry overnight during hospital stay. Case was discussed by Dr. Champagne with Dr. Gomez cardiology and it was decided to place patient on digoxin 125 every other day. I also discussed with Dr. Gomez today. No further events on telemetry for bradycardia. Pt will be placed on event monitor prior to discharge. She will need follow up with cardiology as outpatient. Discussed with patients who is ok with all of the above. Patient will be sent to residential on 30 days of DVT prophylaxis with Lovenox. She is to follow-up with orthopedic surgery within 2 weeks for follow-up. Patient to follow-up with cardiology at discharge. She is to follow-up with primary care doctor within a week. Informed of all of the above and he is agreeable. Please see individual progress notes for further details. Physical Exam Narrative: Elderly female laying in bed appearing comfortable at this time, altered mental status, confused, only oriented to self. present at bedside. Lungs clear to auscultation bilaterally RRR, normal s1, s2 Abdomen soft non tender, right hip dressing appears clean, no drainage, erythema noted. Urinary Catheter Management: Egan: Cath Placed During This Visit: yes, but has since been removed by the nurse Reason for Continuing Indwelling Catheter: Not indwelling catheter Urinary Catheter Date of Insertion: 02/14/22 Urinary Catheter Time of Insertion: 05:00 Date Urinary Catheter Removed: 02/14/22 Time Urinary Catheter Discontinued: 12:00 Discharge Data Studies Completed and Pending Completed Studies During Hospitalization Category Date Time Status CT cervical spin wo con* [id number] Urgent Cat Scan 02/08/22 17:[address] head wo con* [id number] Urgent Cat Scan 02/08/22 17:11 Completed XR chest 1V portable [id number] Urgent Exams 02/08/22 17:11 Completed XR femur RT min 2V* [id number] Stat Exams 02/08/22 19:00 Completed XR hip RT 2-3V wo/w pel* [id number] Routine Exams 02/09/22 11:45 Completed XR hip RT 2-3V wo/w pel* [id number] Routine Exams 02/09/22 12:04 Completed XR hip RT 2-3V wo/w pel* [id number] Stat Exams 02/08/22 17:10 Completed XR knee RT 3V* [id number] Stat Exams 02/08/22 17:10 Completed XR pelvis 1-2V* [id number] Stat Exams 02/08/22 19:00 Completed Radiology Impressions Knee X-Ray 02/08/22 17:10 IMPRESSION: No acute findings. Cervical Spine CT 02/08/22 17:11 IMPRESSION: Negative for acute cervical spine injury. Chest X-Ray 02/08/22 17:11 IMPRESSION: Atelectasis versus scarring or possible pneumonia in the medial left base. Head CT 02/08/22 17:11 IMPRESSION: Negative for acute intracranial abnormality. Femur X-Ray 02/08/22 19:00 IMPRESSION: Comminuted right intertrochanteric femur fracture. Pelvis X-Ray 02/08/22 19:00 IMPRESSION: Comminuted right intertrochanteric femur fracture. Hip/Pelvis X-Ray 02/09/22 12:04 IMPRESSION: Satisfactory position of the intertrochanteric fracture. Laboratory Results WBC 8.7 10^3/uL (4.0-10.0) 02/14/22 05:23 Corrected WBC Cancelled 02/11/22 04:40 RBC 3.47 10^6/uL (4.1-5.3) L 02/14/22 05:23 Hgb 10.6 g/dL (11.5-15.3) L 02/14/22 05:23 Hct 30.8 % (37.0-47.0) L 02/14/22 05:23 MCV 88.8 fl (81-99) 02/14/22 05:23 MCH 30.5 pg (28.0-34.0) 02/14/22 05:23 MCHC 34.4 g/dL (30.0-36.0) 02/14/22 05:23 RDW 12.7 % (12.1-15.1) 02/14/22 05:23 Plt Count 224 10^3/cmm (130-400) 02/14/22 05:23 MPV 8.2 fL (7.4-10.4) 02/14/22 05:23 Gran % Cancelled 02/11/22 04:40 Neut % (Auto) 64.7 % 02/14/22 05:23 Lymph % (Auto) 16.5 % 02/14/22 05:23 Rosebud % (Auto) 11.9 % 02/14/22 05:23 Eos % (Auto) 3.7 % 02/14/22 05:23 Baso % (Auto) 0.8 % 02/14/22 05:23 Neut # (Auto) 5.66 10^3/uL (1.8-7.7) 02/14/22 05:23 Lymph # (Auto) 1.4 10^3/uL (0.8-4.8) 02/14/22 05:23 Rosebud # (Auto) 1.0 10^3/uL (0.2-0.9) H 02/14/22 05:23 Eos # (Auto) 0.3 10^3/uL (0.0-0.8) 02/14/22 05:23 Baso # (Auto) 0.1 10^3/uL (0.0-0.1) 02/14/22 05:23 Absolute Gran (auto) Cancelled 02/11/22 04:40 Nucleated RBC % (auto) 0 % 02/14/22 05:23 Nucleated RBCs # 0.0 /100WBC 02/14/22 05:23 PT 14.70 SECONDS (12.1-14.9) 02/09/22 04:19 INR 1.12 (0.8-1.2) 02/09/22 04:19 Sodium 134 mmol/L (136-145) L 02/14/22 05:23 Potassium 3.5 mmol/L (3.5-5.1) 02/14/22 05:23 Chloride 97 mmol/L (98-107) L 02/14/22 05:23 Carbon Dioxide 25 mmol/L (22-29) 02/14/22 05:23 Anion Gap 15.5 (5-19) 02/14/22 05:23 BUN 6 mg/dL (8-23) L 02/14/22 05:23 Creatinine 0.4 mg/dL (0.5-0.9) L 02/14/22 05:23 GFR Calculation Not Reportable 02/14/22 05:23 Glucose 126 mg/dL (65-115) H 02/14/22 05:23 Estimat Average Glucose 143 02/09/22 04:19 Hemoglobin A1c 6.6 % (4.0-6.0) H 02/09/22 04:19 Calculated Osmolality 277 mOsm/kg (285-295) L 02/14/22 05:23 Lactic Acid 1.9 mmol/L (0.5-2.2) 02/09/22 04:19 Calcium 8.4 mg/dL (8.5-10.5) L 02/14/22 05:23 Phosphorus 1.7 mg/dL (2.5-4.5) L 02/11/22 04:40 Magnesium 1.7 mg/dL (1.7-2.3) 02/11/22 04:40 Iron 21 ug/dL (37-145) L 02/09/22 04:19 TIBC 209 mcg/dl 02/09/22 04:19 % Saturation 10.0 % (20-50) L 02/09/22 04:19 Unsat Iron Binding 188 ug/dL (112-347) 02/09/22 04:19 Total Bilirubin 0.9 mg/dL (0.15-1.2) 02/14/22 05:23 AST 24 U/L (0-32) 02/14/22 05:23 ALT 10 U/L (0-33) 02/14/22 05:23 Alkaline Phosphatase 65 U/L (35-105) 02/14/22 05:23 Troponin T Baseline 10 ng/L (0-10) 02/08/22 18:00 Troponin T 120 Minute 11.10 ng/L (0-10) H 02/08/22 20:45 Delta Troponin T 1.10 ABS# (0-10) 02/08/22 20:45 Troponin T Hi Sens 6Hr 12.56 ng/L (0-10) H 02/08/22 23:54 Troponin T Hi Sens 6Hr Delta 2.56 ng/L (0-12) 02/08/22 23:54 NT-Pro-B Natriuret Pep 195 pg/mL (0-450) 02/09/22 04:19 Total Protein 5.2 g/dL (6.6-8.7) L 02/14/22 05:23 Albumin 2.8 g/dL (3.5-5.2) L 02/14/22 05:23 Globulin 2.4 g/dL (1.3-4.6) 02/14/22 05:23 Triglycerides 61 mg/dL (0-150) 02/09/22 04:19 Cholesterol 180 mg/dL (0-200) 02/09/22 04:19 LDL Cholesterol, Calc 114 mg/dL (50-129) 02/09/22 04:19 HDL Cholesterol 54 mg/dL (60-100) L 02/09/22 04:19 LDL/HDL Ratio 2.11 RATIO (0.00-3.22) 02/09/22 04:19 Cholesterol/HDL Ratio 3.33 mg/dL (0.0-4.40) 02/09/22 04:19 Vitamin B12 1422 pg/mL (232-1245) H 02/09/22 04:19 Folate 8.3 ng/mL (4.8-37.3) 02/09/22 04:19 TSH 0.84 uIU/mL (0.27-4.20) 02/09/22 04:19 Urine Color Yellow (Yellow) 02/08/22 18:35 Urine Appearance Clear (CLEAR) 02/08/22 18:35 Urine pH 6 (5-7) 02/08/22 18:35 Ur Specific Manning 1.015 (1.005-1.030) 02/08/22 18:35 Urine Protein Neg (Negative) 02/08/22 18:35 Urine Glucose (UA) Norm (Normal) 02/08/22 18:35 Urine Ketones Negative (Negative) 02/08/22 18:35 Urine Blood Neg (Negative) 02/08/22 18:35 Urine Nitrate Negative (Negative) 02/08/22 18:35 Urine Bilirubin 1+ (Negative) H 02/08/22 18:35 Urine Urobilinogen 4 mg/dL (Negative) H 02/08/22 18:35 Ur Leukocyte Esterase Negative (Negative) 02/08/22 18:35 Digoxin 0.6 ng/mL (0.6-1.2) 02/14/22 05:23 SARS-CoV-2 Ag (Rapid) Negative (Negative) 02/14/22 14:00 Blood Type A Positive 02/11/22 06:02 Rho(D) Type Positive 02/11/22 06:02 Antibody Screen Negative 02/11/22 06:02 Crossmatch See Detail 02/11/22 06:02 Vitals Last Vital Signs Temp 97.9 F 02/15/22 04:00 Pulse 81 02/15/22 08:00 Resp 16 02/15/22 08:00 BP 98/58 02/15/22 08:00 Pulse Ox 100 02/15/22 08:00 O2 Del Method 02/15/22 08:00 O2 Flow Rate 6 02/14/22 20:00 Discharge Plan Discharge Patient Disposition: Xfer SNF Condition: Stable Prescriptions: New enoxaparin 40 mg/0.4 mL Syringe 40 mg SUBCUT Q24H 30 Days Qty: 12 0RF ondansetron 4 mg tablet,disintegrating 4 mg PO DAILY PRN (Reason: nausea and vomiting) 5 Days Qty: 10 0RF Stool Softener-Laxative 8.6-50 mg Tablet 2 tab PO BID 14 Days Qty: 56 0RF oxycodone 5 mg tablet 5 mg PO Q6H PRN (Reason: pain) 7 Days Qty: 28 0RF calcium carbonate-vitamin D3 600 mg-10 mcg (400 unit) Tablet 1 ea PO BID 30 Days Qty: 60 1RF citalopram 20 mg Tablet 30 mg PO DAILY 30 Days Qty: 45 0RF donepezil 5 mg Tablet 5 mg PO BEDTIME 30 Days Qty: 30 0RF polysaccharide iron complex [Ferrex 150] 150 mg iron Capsule 150 mg PO DAILY 30 Days Qty: 30 0RF multivitamin with folic acid [Thera] 400 mcg Tablet 1 tab PO DAILY 30 Days Qty: 30 0RF tamsulosin 0.4 mg Capsule 0.4 mg PO DAILY 30 Days Qty: 30 0RF sodium chloride 1 gram Tablet 1 g PO DAILY 30 Days Qty: 30 0RF digoxin 125 mcg (0.125 mg) Tablet 125 mcg PO EVERY OTHER DAY 30 Days Qty: 15 0RF Continued nifedipine 30 mg tablet extended release 24hr 30 mg PO DAILY propafenone 150 mg tablet 150 mg PO Q8H memantine 10 mg tablet 10 mg PO BID Dulera 200-5 mcg/actuation HFA aerosol inhaler 2 puff INHALATION BID aspirin 81 mg Tablet,Chewable 81 mg PO DAILY pantoprazole 40 mg tablet,delayed release (DR/EC) 40 mg PO DAILY levothyroxine [Synthroid] 125 mcg tablet 125 mcg PO DAILY Discontinued digoxin 125 mcg (0.125 mg) tablet 125 mcg PO DAILY Discharge Orders: Discharge Order (Routine); Ordered 02/15/22 Ordered By: Evelia Lopez Other Ambulatory Orders: Basic Metabolic Panel (Routine) Timeframe: 1 Week Facility: [facility] - Location: Lab - Main Lab Ordered By: Evelia Lopez Complete Blood Count w/Auto (Routine) Timeframe: 1 Week Location: Determined by Patient Ordered By: Evelia Lopez MCT/Event Monitor 21 Days (Routine) Timeframe: 1 Day Facility: [facility] - Location: Radiology Ordered By: Evelia Lopez Referrals: Adam Gomez MD [Physician] - 1 month Rafiq Cruz DO [Physician] - 2 weeks Kelly Matias APN [Primary Care Provider] - 4-7 days Discharge Diet: Regular Discharge Activity: Increase activity as tolerated and As per PT/OT instructions Activity Restrictions/Additional Instructions: Orthopedic discharge instructions: DVT prophylaxis?take Lovenox as prescribed Pain control take pain medication as prescribed Weightbearing as tolerated to the right lower extremity Keep incisions clean dry and intact may leave Silverlon dressing on until follow-up appointment Supplement Citracal vitamin D Take antinausea medication as needed Ice right hip as needed for pain and swelling Follow-up in the orthopedic office in 2 weeks Feel free to contact the orthopedic office for any questions Please ensure compliance to cardiac event monitor and follow-up with cardiology as scheduled. Also follow-up with orthopedic surgery within 2 weeks of discharge. If you do not hear from their office please call them. Please recheck your labs within a week to ensure they stay stable. If patient experiences any dizziness, lightheadedness, low blood pressure, chest pain, shortness of breath please return to the ER. Discharge Attestations Time Spent in Discharge Care*: greater than 30 min Quality Metrics Clinical Quality Measures [ No reported AMI, CVA or VTE this stay] Coding Level of Care Code Acute Chg FW DC note Diagnoses Fracture, intertrochanteric, right femur S72.141A Encounter type: initial encounter Fracture type: closed Fall W19.XXXA Encounter type: initial encounter Atrial fibrillation I48.91 Heart block atrioventricular I44.30 COPD (chronic obstructive pulmonary disease) J44.9 Hypertension I10 Hypertension type: primary hypertension Alzheimer's dementia G30.9; F02.80 Acute kidney injury N17.9
[2022-02-15 09:52] VITALS: BP 126/63
[2022-02-15 11:25] VITALS: BP 132/61; PULSE 79; RESP 16; TEMP 36.4; O2SAT 98
[2022-02-15] MEDS: propafenone 150 mg Tablet PO (14:23)
--- NOTE | 2022-02-15 14:46 | PC.SOCIAL ---
IMM update IMM Updated with patient and family at bedside. Verbalized an understanding. Copy Pg 2 provided. Initialled, dated, timed, and placed in chart.
== END 2022-02-15 15:58 | disposition skilled nursing facility (03) | DRG 480 ==
LOC: ER 19:40 → MEDSURG 20:58
PROVIDERS: Student in an Organized Health Care Education/Training Program; Admitting Provider Family Medicine; Emergency Provider Physician Assistant; PCP Nurse Practitioner Family; Visit Provider Internal Medicine
PROC: 0QS606Z Reposition Right Upper Femur with Intramedullary Internal Fixation Device, Open Approach (ICD-10-PCS; CPT 27245; principal; 2022-02-09 09:05)
DX: S72.141A Displaced intertrochanteric fracture of right femur, initial encounter for closed fracture (principal); J18.9 Pneumonia, unspecified organism; F02.81 Dementia in other diseases classified elsewhere, unspecified severity, with behavioral disturbance; J44.0 Chronic obstructive pulmonary disease with (acute) lower respiratory infection; N17.9 Acute kidney failure, unspecified; D62 Acute posthemorrhagic anemia; W18.30XA Fall on same level, unspecified, initial encounter; G30.9 Alzheimer's disease, unspecified; I48.91 Unspecified atrial fibrillation; I10 Essential (primary) hypertension; Z95.0 Presence of cardiac pacemaker; Z66 Do not resuscitate; I44.30 Unspecified atrioventricular block; R33.9 Retention of urine, unspecified
CPT/HCPCS: 36415; 51702; 51798; 70450; 71045; 72125; 72170; 73502; 73552; 73562; 76000; 80053; 80061; 80162; 81003; 82607; 82746; 83036; 83540; 83550; 83605; 83735; 83880; 84100; 84443; 84484; 85025; 85610; 86850; 86900; 86920; 87426; 93005; 94664; 96372; 96374; 97110; 97116; 97161; 97166; 97530; 97535; 99285; C1713; C9113; J0456; J0696; J1170; J1630; J1650; J2405; J2704; J3010; J7030; J7050; P9016

== ENCOUNTER → 2022-02-28 12:08 | Outpatient (BNVA) | payer MEDICARE, SELFPAY | PROVIDERS: PCP Nurse Practitioner Family; Visit Provider Student in an Organized Health Care Education/Training Program | DX: S72.141A Displaced intertrochanteric fracture of right femur, initial encounter for closed fracture (principal); X58.XXXA Exposure to other specified factors, initial encounter | CPT/HCPCS: 73502; 99024 ==

== ENCOUNTER 2022-12-28 14:25 | Emergency (ER) | payer OTHER, SELFPAY ==
--- NOTE | 2022-12-28 14:27 | CTR_ITS ---
PROCEDURE INFORMATION: Exam: CT Head Without Contrast Exam date and time: 12/28/2022 2:34 PM Age: 77 years old Clinical indication: Weakness, extremity TECHNIQUE: Imaging protocol: Computed tomography of the head without contrast. Radiation optimization: All CT scans at this facility use at least one of these dose optimization techniques: automated exposure control; mA and/or kV adjustment per patient size (includes targeted exams where dose is matched to clinical indication); or iterative reconstruction. REPORTING DATA: Count of CT and Cardiac NM exams in prior 12 months: This patient has received 3 known CTs and 0 known cardiac nuclear medicine studies in the 12 months prior to the current study. COMPARISON: CT head wo con* [id number] 02/08/2022 5:41 PM RADIATION DOSE METRICS: Total DLP (mGy-cm): 984.38 FINDINGS: Brain: Mild diffuse white matter disease likely reflecting chronic microvascular ischemic changes. Left frontal parietal junction chronic infarct, similar to prior exam. Cerebral ventricles: No ventriculomegaly. Paranasal sinuses: Visualized sinuses are unremarkable. No fluid levels. Mastoid air cells: Visualized mastoid air cells are well aerated. Bones/joints: Unremarkable. No acute fracture. Soft tissues: Unremarkable. CT/CT head wo con* [id number] IMPRESSION: 1. Negative for intracranial hemorrhage or mass effect. 2. Mild diffuse white matter disease likely reflecting chronic microvascular ischemic changes. 3. Left frontal parietal junction chronic infarct, similar to prior exam.
[2022-12-28 14:31] VITALS: BP 147/89; PULSE 67; RESP 18; TEMP 36.9; O2SAT 96; BMI 20.3
[2022-12-28 14:56] LABS: Glucose Point of Care 107 mg/dL (70-110)
--- NOTE | 2022-12-28 15:15 | ECG_ITS ---
[facility] Test Date: 2022-12-28 Pat Name: Tram Macdonald Department: Room: Gender: Female [employer]: : 1945 Requested By: Dave Maki Order Number: [id number] Noni MD: Shimon Randolph M.D. Measurements Intervals [place] Rate: 65 P: 80 WA: 190 QRS: -74 QRSD: 125 T: 79 QT: 431 QTc: 450 Interpretive Statements SINUS RHYTHM LEFT AXIS DEVIATION [QRS AXIS < -30] POSSIBLE RIGHT VENTRICULAR CONDUCTION DELAY [RSR (QR) IN V1/V2] SEPTAL MYOCARDIAL INFARCTION , PROBABLY OLD [40+ ms Q WAVE IN V1/V2] Compared to ECG 02/09/2022 00:11:54 Right bundle-branch block no longer present Myocardial infarct finding still present Electronically Signed On 12-28-2022 17:00:45 CDT by Shimon Randolph M.D. [email or web address]
--- NOTE | 2022-12-28 15:19 | ED_ITS ---
HPI - Neuro Symptoms/Deficit General: Chief Complaint: Neuro Symptoms/Deficit Stated Complaint: rule out TIA Time Seen by Provider: 12/28/22 14:26 Source: patient Mode of arrival: EMS History of Present Illness: 77-year-old female who presents to the emergency room from the skilled nursing. She has a history of Alzheimer's this morning she had reportedly had worsening confusion and possibly some left-sided weakness however on arrival here they state this is for the most part resolved. She still unable to really answer much questions or give any significant history patient is on aspirin daily she has a history of atrial fibrillation she is not currently particularly tachycardic. She takes digoxin and propafenone for rate control. No recent medication changes. Denies chest pain. Onset (ago): hour(s) Time: 14:25 Last Observed Normal: 22:30 Timing confirmed by: family member Location: speech, left arm and left leg Severity: mild Quality: weak Relieving factors: none Exacerbating factors: none On Anticoagulants: No Associated symptoms: Deny chest pain, cough, diaphoresis, fevers/chills, headache(s), anorexia, nausea, seizures, short of breath, syncope, tingling, vertigo, vomiting or weakness Treatments Prior to Arrival: none Review of Systems Const: Denies: fever(s), chills or diaphoresis Card: Denies: chest pain or syncope GI: Denies: abdominal pain, nausea or vomiting : Denies: dysuria, urinary frequency or urinary urgency Neuro: Denies: headache(s) or vertigo PFSH ED PFSH: Medical History Alzheimer's dementia Atrial fibrillation COPD (chronic obstructive pulmonary disease) Fracture, intertrochanteric, right femur Hypertension Surgical History History of permanent cardiac pacemaker placement Social History Smoking and tobacco status: never smoked Alcohol intake: never Substance/Drug Use: never NIH stroke score NIHSS: Level Of Consciousness - 1a: 0 (Struggles with orientation due to dementia ) Level Of Consciousness Questions - 1b: Both Correct Level Of Consciousness Commands - 1c: Both Correct Best Gaze - 2: Normal Visual Oliva - 3: No Visual Loss Facial Palsy - 4: Normal Motor Arm Right - 5: No Drift Motor Arm Left - 5: No Drift Motor Leg Right - 6: No Drift Motor Leg Left - 6: No Drift Limb Ataxia - 7: Absent Sensory - 8: Normal Best Language - 9: No Aphasia Dysarthia - 10: Normal Extinction And Inattention - 11: 0 Score: Total Score: 0 Physical Exam Const: GENERAL APPEARANCE: cooperative and comfortable ORIENTATION/CONSCIOUSNESS: Yes awake HENMT: COMMON NORMALS: normocephalic, atraumatic and hearing grossly normal bilaterally HEAD & SCALP: normocephalic and atraumatic Resp: COMMON NORMALS: normal respiratory effort, No retractions, No use of accessory muscles and clear to auscultation bilaterally AUSCULTATION: clear to auscultation bilaterally Cardio: COMMON NORMALS: regular rate, regular rhythm and No murmurs present (Cardio) RATE: regular rate RHYTHM: regular rhythm GI: COMMON NORMALS: Soft to palpation and No hepatosplenomegaly present AUSCULTATION: Yes normoactive bowel sounds PALPATION: Yes Soft to palpation, No Tenderness to palpation present (GI), No Guarding due to palpation present (GI) and Yes No hepatosplenomegaly present Extremity: COMMON NORMALS: normal to inspection, capillary refill normal, no clubbing, cyanosis or edema, no calf tenderness and no pedal edema Skin: COMMON NORMALS: no rashes or lesions noted GENERAL SKIN EXAM: no rashes or lesions noted Course Vital Signs: Vital signs: Vital Signs Temperature 98.4 F 12/28/22 14:31 Pulse Rate 67 12/28/22 14:31 Respiratory Rate 18 12/28/22 14:31 Blood Pressure 147/89 12/28/22 14:31 Pulse Oximetry 96 12/28/22 14:31 Oxygen Delivery Me thod Room Air 12/28/22 14:31 MDM - Neuro Symptoms/Deficit Medical Decision Making NIH score is 0 no focal deficits. She does have risk factors with her atrial fibrillation. She is a little bit difficult to score at some points due to her Alzheimer's but surprisingly she is able to answer most of her questions she does have some difficulty following commands. She has no left-sided weakness. CT and CTA head and neck are unremarkable discussed with her we will go ahead and discharge the patient back to the skilled nursing we will set her up for an echo and a 48-hour Holter monitor. She is not currently on any anticoagulat ion for her A-fib but will add Crestor and clopidogrel for dual platelet therapy. Discussed with expressed understanding return if has further problems. Medical Records I reviewed the patient's medical records. Lab Data I reviewed the patient's lab results. 12/28/22 16:00 12/28/22 16:[address] 12/28/22 14:27 IMPRESSION: 1. Negative for intracranial hemorrhage or mass effect. 2. Mild diffuse white matter disease likely reflecting chronic microvascular ischemic changes. 3. Left frontal parietal junction chronic infarct, similar to prior exam. Head/Neck CTA 12/28/22 15:54 IMPRESSION: No occlusion or significant stenosis. IMPRESSION: No stenosis or occlusion. REFERENCES: NASCET CRITERIA. The degree of stenosis in the cervical segment of the internal carotid artery is based on NASCET criteria. Normal is no stenosis. Mild is less than 50% stenosis. Moderate is 50-69% stenosis. Severe is 70% to 99% stenosis. Total occlusion is no detectable patent lumen. Laboratory Results WBC 6.7 10^3/uL (4.0-10.0) 12/28/22 16:00 Corrected WBC Cancelled 12/28/22 14:33 RBC 4.18 10^6/uL (4.1-5.3) 12/28/22 16:00 Hgb 12.4 g/dL (11.5-15.3) 12/28/22 16:00 Hct 39.1 % (37.0-47.0) 12/28/22 16:00 MCV 93.5 fl (81-99) 12/28/22 16:00 MCH 29.7 pg (28.0-34.0) 12/28/22 16:00 MCHC 31.7 g/dL (30.0-36.0) 12/28/22 16:00 RDW 13.1 % (12.1-15.1) 12/28/22 16:00 Plt Count 178 10^3/cmm (130-400) 12/28/22 16:00 MPV 8.5 fL (7.4-10.4) 12/28/22 16:00 Gran % Cancelled 12/28/22 14:33 Neut % (Auto) 59.3 % 12/28/22 16:00 Lymph % (Auto) 30.9 % 12/28/22 16:00 [place] % (Auto) 6.7 % 12/28/22 16:00 Eos % (Auto) 1.9 % 12/28/22 16:00 Baso % (Auto) 0.9 % 12/28/22 16:00 Neut # (Auto) 3.95 10^3/uL (1.8-7.7) 12/28/22 16:00 Lymph # (Auto) 2.1 10^3/uL (0.8-4.8) 12/28/22 16:00 [place] # (Auto) 0.5 10^3/uL (0.2-0.9) 12/28/22 16:00 Eos # (Auto) 0.1 10^3/uL (0.0-0.8) 12/28/22 16:00 Baso # (Auto) 0.1 10^3/uL (0.0-0.1) 12/28/22 16:00 Absolute Gran (auto) Cancelled 12/28/22 14:33 Nucleated RBC % (auto) 0 % 12/28/22 16:00 Nucleated RBCs # 0.0 /100WBC 12/28/22 16:00 Sodium 139 mmol/L (136-145) 12/28/22 16:00 Potassium 4.5 mmol/L (3.5-5.1) 12/28/22 16:00 Chloride 105 mmol/L (98-107) 12/28/22 16:00 Carbon Dioxide 24 mmol/L (22-29) 12/28/22 16:00 Anion Gap 14.5 (5-19) 12/28/22 16:00 BUN 8 mg/dL (8-23) 12/28/22 16:00 Creatinine 0.7 mg/dL (0.5-0.9) 12/28/22 16:00 GFR Calculation Not Reportable 12/28/22 16:00 Glucose 93 mg/dL (65-115) 12/28/22 16:00 POC Glucose 107 mg/dL (70-110) 12/28/22 14:52 Calculated Osmolality 286 mOsm/kg (285-295) 12/28/22 16:00 Calcium 9.1 mg/dL (8.5-10.5) 12/28/22 16:00 Total Bilirubin 0.4 mg/dL (0.15-1.2) 12/28/22 16:00 AST 13 U/L (0-32) 12/28/22 16:00 ALT 7 U/L (0-33) 12/28/22 16:00 Alkaline Phosphatase 92 U/L (35-105) 12/28/22 16:00 Total Protein 6.1 g/dL (6.6-8.7) L 12/28/22 16:00 Albumin 3.5 g/dL (3.5-5.2) 12/28/22 16:00 Globulin 2.6 g/dL (1.3-4.6) 12/28/22 16:00 Digoxin 0.9 ng/mL (0.6-1.2) 12/28/22 16:00 Discharge Plan Discharge Patient Disposition: Home Clinical Impression: TIA (transient ischemic attack), Atrial fibrillation, Alzheimer's dementia Condition: Stable Prescriptions: New clopidogrel 75 mg tablet 75 mg PO DAILY Qty: 30 0RF Crestor 20 mg tablet 20 mg PO DAILY Qty: 30 0RF No Action digoxin 125 mcg (0.125 mg) tablet 125 mcg PO EVERY OTHER DAY sennosides-docusate sodium [Senna Plus] 8.6-50 mg tablet 1 tab-cap PO BID propafenone 225 mg capsule,extended release 12 hr 225 mg PO Q12H Qty: 60 6RF nifedipine 30 mg tablet extended release 24hr 30 mg PO QAM memantine 10 mg tablet 10 mg PO BID aspirin 81 mg tablet,chewable 81 mg PO EVERY OTHER DAY pantoprazole 40 mg tablet,delayed release (DR/EC) 40 mg PO QAM levothyroxine [Synthroid] 125 mcg tablet 125 mcg PO QAM cyanocobalamin (vitamin B-12) [Vitamin B-12] 1,000 mcg Tablet 1,000 mcg PO DAILY PRN (Reason: unknown) cyproheptadine 4 mg tablet 4 mg PO QAM Discharge Orders: Discharge ED (Routine); Ordered 12/28/22 Ordered By: Dave Al Referrals: Florencio,MIKE Mendoza [Primary Care Provider] - Discharge Diet: Usual diet Discharge Activity: Increase activity as tolerated Patient Instructions: Transient Ischemic Attack (ED), Opioid Safety, Pain Management Coding Level of Care Code ED 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
--- NOTE | 2022-12-28 15:54 | CTR_ITS ---
PROCEDURE INFORMATION: Exam: CTA Head With Contrast, Arteriography Exam date and time: 12/28/2022 5:02 PM Age: 77 years old Clinical indication: Other: TIA; Additional info: TIA, TIA TECHNIQUE: Imaging protocol: Computed tomographic angiography of the head with contrast. Exam focused on the arteries. 3D rendering (Not supervised by radiologist): MIP and/or 3D reconstructed images were created by the technologist. Radiation optimization: All CT scans at this facility use at least one of these dose optimization techniques: automated exposure control; mA and/or kV adjustment per patient size (includes targeted exams where dose is matched to clinical indication); or iterative reconstruction. Contrast material: OMNI 350; Contrast volume: 100 ml; Contrast route: INTRAVENOUS (IV); REPORTING DATA: Count of CT and Cardiac NM exams in prior 12 months: This patient has received 3 known CTs and 0 known cardiac nuclear medicine studies in the 12 months prior to the current study. COMPARISON: CT head wo con* [id number] 12/28/2022 2:34 PM RADIATION DOSE METRICS: Total DLP (mGy-cm): 368.28 FINDINGS: ANTERIOR CIRCULATION: Right internal carotid artery: Atherosclerotic changes are present in the right internal carotid with mild stenosis in the supraclinoid segment. Right middle cerebral artery: No occlusion or significant stenosis. No aneurysm. Right anterior cerebral artery: No occlusion or significant stenosis. No aneurysm. Left internal carotid artery: Intracranial segment is patent with no significant stenosis. No aneurysm. Left middle cerebral artery: No occlusion or significant stenosis. No aneurysm. Left anterior cerebral artery: No occlusion or significant stenosis. No aneurysm. POSTERIOR CIRCULATION: Right vertebral artery: No occlusion or significant stenosis. No aneurysm. Left vertebral artery: No occlusion or significant stenosis. No aneurysm. Basilar artery: No occlusion or significant stenosis. No aneurysm. Right posterior cerebral artery: No occlusion or significant stenosis. No aneurysm. Left posterior cerebral artery: No occlusion or significant stenosis. No aneurysm. Brain: No definite mass, mass effect, or midline shift. Left frontoparietal encephalomalacia again visualized. Cerebral ventricles: No ventriculomegaly. Bones/joints: Unremarkable. No acute fracture. Soft tissues: Unremarkable. Other findings: Anatomic variant azygos configuration of the ACAs. PROCEDURE INFORMATION: Exam: CTA Neck With Contrast Exam date and time: 12/28/2022 5:02 PM Age: 77 years old Clinical indication: Other: TIA; Additional info: TIA, TIA TECHNIQUE: Imaging protocol: Computed tomographic angiography of the neck with contrast. 3D rendering (Not supervised by radiologist): MIP and/or 3D reconstructed images were created by the technologist. Radiation optimization: All CT scans at this facility use at least one of these dose optimization techniques: automated exposure control; mA and/or kV adjustment per patient size (includes targeted exams where dose is matched to clinical indication); or iterative reconstruction. Contrast material: OMNI 350; Contrast volume: 100 ml; Contrast route: INTRAVENOUS (IV); REPORTING DATA: Count of CT and Cardiac NM exams in prior 12 months: This patient has received 3 known CTs and 0 known cardiac nuclear medicine studies in the 12 months prior to the current study. COMPARISON: CT neck w con* [id number] 01/12/2022 4:49 PM RADIATION DOSE METRICS: Total DLP (mGy-cm): 0.01 FINDINGS: Right common carotid artery: No stenosis. No dissection or occlusion. Right internal carotid artery: No stenosis of the extracranial segment. No dissection or occlusion. Mildly beaded distal appearance suggests possible fibromuscular dysplasia. Right external carotid artery: No occlusion or stenosis of the origin. Left common carotid artery: No stenosis. No dissection or occlusion. Left internal carotid artery: No stenosis of the extracranial segment. No dissection or occlusion. Left external carotid artery: No occlusion or stenosis of the origin. Right vertebral artery: No stenosis. No dissection or occlusion. Left vertebral artery: No stenosis. No dissection or occlusion. Soft tissues: Normal. No significant soft tissue swelling. Bones/joints: No acute fracture. Lungs: Biapical lung scarring. CT/CT angio headneck* [id number] IMPRESSION: No occlusion or significant stenosis. IMPRESSION: No stenosis or occlusion. REFERENCES: NASCET CRITERIA. The degree of stenosis in the cervical segment of the internal carotid artery is based on NASCET criteria. Normal is no stenosis. Mild is less than 50% stenosis. Moderate is 50-69% stenosis. Severe is 70% to 99% stenosis. Total occlusion is no detectable patent lumen.
--- NOTE | 2022-12-28 15:58 | PC.PHAR ---
pts verified pts medications-pts states the pt no longer has or uses dulera 2p bid rx filled 03/09/23-notes are made in the pharmacy comments
[2022-12-28 16:09] LABS: Basophils # 0.1 10^3/uL (0.0-0.1); Basophils % 0.9 %; Eosinophils # 0.1 10^3/uL (0.0-0.8); Eosinophils % 1.9 %; Hematocrit 39.1 % (37.0-47.0); Hemoglobin 12.4 g/dL (11.5-15.3); Lymphocytes # 2.1 10^3/uL (0.8-4.8); Lymphocytes % 30.9 %; Mean Corpuscular HGB Conc 31.7 g/dL (30.0-36.0); Mean Corpuscular Hemoglobin 29.7 pg (28.0-34.0); Mean Corpuscular Volume 93.5 fl (81-99); Mean Platelet Volume 8.5 fL (7.4-10.4); Monocytes # 0.5 10^3/uL (0.2-0.9); Monocytes % 6.7 %; Neutrophils # 3.95 10^3/uL (1.8-7.7); Neutrophils % 59.3 %; Nucleated Red Blood Cells % 0 %; Platelet Count 178 10^3/cmm (130-400); Red Blood Count 4.18 10^6/uL (4.1-5.3); Red Cell Distribution Width 13.1 % (12.1-15.1); White Blood Count 6.7 10^3/uL (4.0-10.0)
[2022-12-28 16:39] LABS: Alanine Aminotransferase 7 U/L (0-33); Albumin Level 3.5 g/dL (3.5-5.2); Alkaline Phosphatase 92 U/L (35-105); Aspartate Amino Transferase 13 U/L (0-32); Blood Urea Nitrogen 8 mg/dL (8-23); Calcium 9.1 mg/dL (8.5-10.5); Carbon Dioxide 24 mmol/L (22-29); Chloride 105 mmol/L (98-107); Globulin 2.6 g/dL (1.3-4.6); Glucose 93 mg/dL (65-115); Osmolality Calculated 286 mOsm/kg (285-295); Sodium 139 mmol/L (136-145); Total Bilirubin 0.4 mg/dL (0.15-1.2); Total Protein 6.1 g/dL (6.6-8.7)
[2022-12-28 16:40] LABS: Digoxin 0.9 ng/mL (0.6-1.2)
[2022-12-28 16:46] LABS: Anion Gap 14.5 (5-19); Potassium 4.5 mmol/L (3.5-5.1)
--- NOTE | 2023-01-02 10:37 | DCPLANNER ---
Addendum entered by Cyndi Pool 01/25/23 11:40: This appointment was cancelled Addendum entered by Cyndi Pool 01/04/23 14:05: Patient has a follow up appointment scheduled for Wednesday, January 25, 2023 at [facility]. Addendum entered by Cyndi Pool 01/02/23 15:11: manager functional received the following message from centralized scheduling regarding follow up appointment: Got this order. Dropped to [employer] and sent to finance because this patient only has Medicare Part A. Thank you Original Note: manager functional had message to schedule an outpatient echo cardiogram. manager functional faxed signed order to centralized scheduling, who will call patient with appointment information. manager functional had message to schedule an out patient 48 hour halter monitor. manager functional faxed signed order to [facility], who will call patient with appointment information.
== END 2022-12-28 18:45 | disposition home or self-care (01) ==
PROVIDERS: Emergency Provider Family Medicine; PCP Nurse Practitioner Family
DX: G45.9 Transient cerebral ischemic attack, unspecified (principal); I48.91 Unspecified atrial fibrillation; G30.9 Alzheimer's disease, unspecified; F02.80 Dementia in other diseases classified elsewhere, unspecified severity, without behavioral disturbance, psychotic disturbance, mood disturbance, and anxiety
CPT/HCPCS: 36415; 36416; 70450; 70496; 70498; 80053; 80162; 82962; 85025; 93005; 99285; Q9967

== ENCOUNTER 2023-01-24 14:23 | Inpatient (IN) | payer MEDICARE, OTHER, SELFPAY ==
[2023-01-24] VITALS (7 sets, daily range): BP systolic 103–178; BP diastolic 61–124; PULSE 71–99; RESP 12–15; TEMP 36.6–37.1; O2SAT 93–100; BMI 17.7
--- NOTE | 2023-01-24 15:23 | CTR_ITS ---
PROCEDURE INFORMATION: Exam: CT Abdomen And Pelvis With Contrast Exam date and time: 01/24/2023 4:50 PM Age: 77 years old Clinical indication: Abdominal pain; Generalized; Prior surgery; Surgery date: 6+ months; Surgery type: Hip replacement; Additional info: Firm abdomen, high pitched bowel sounds, dementia TECHNIQUE: Imaging protocol: Computed tomography of the abdomen and pelvis with contrast. Radiation optimization: All CT scans at this facility use at least one of these dose optimization techniques: automated exposure control; mA and/or kV adjustment per patient size (includes targeted exams where dose is matched to clinical indication); or iterative reconstruction. Contrast material: OMNI 350; Contrast volume: 75 ml; Contrast route: INTRAVENOUS (IV); REPORTING DATA: Count of CT and Cardiac NM exams in prior 12 months: This patient has received 4 known CTs and 0 known cardiac nuclear medicine studies in the 12 months prior to the current study. COMPARISON: CT kidney stone [id number] 06/09/2017 12:29 AM RADIATION DOSE METRICS: Total DLP (mGy-cm): 382.15 FINDINGS: Diaphragm: Small-sized hiatal hernia. Liver: Normal. No mass. Gallbladder and bile ducts: Normal. No calcified stones. No ductal dilation. Pancreas: Normal. No ductal dilation. Spleen: Normal. No splenomegaly. Adrenal glands: Normal. No mass. Kidneys and ureters: Multiple nonobstructing right nephroliths measuring up to 4 mm. Stomach and bowel: There is wall thickening of the colon beyond the proximal transverse segment which is greatest in the sigmoid. There is perforation of the sigmoid with extraluminal air seen for example on coronal image 15. There is also a small amount of free air just superior to the bladder near the colon. No bowel obstruction. The sigmoid contains scattered diverticuli. Appendix: No evidence of appendicitis. Intraperitoneal space: There is a small amount of complex free fluid in the pelvis. Vasculature: Moderate atherosclerosis. Lymph nodes: Unremarkable. No enlarged lymph nodes. Urinary bladder: The bladder wall is thickened especially anteriorly. Reproductive: Enlarged partly calcified likely fibroid uterus is unchanged. Bones/joints: ORIF changes right proximal femur. Soft tissues: Unremarkable. CT/CT abdomen pelvis w con* [id number] IMPRESSION: 1. Sigmoid colonic perforation with adjacent free air and small amount of complex fluid in the pelvis not forming a drainable collection. This is most likely the sequela of acute diverticulitis favored over colitis. No evidence of bowel obstruction. 2. Thickening of the bladder which is likely secondary. Correlate with urinalysis for cystitis.
[2023-01-24 15:38] LABS: Basophils % 0.2 %; Eosinophils % 0.2 %; Hematocrit 41.4 % (37.0-47.0); Hemoglobin 13.8 g/dL (11.5-15.3); Lymphocytes # 1.1 10^3/uL (0.8-4.8); Lymphocytes % 5.9 %; Mean Corpuscular HGB Conc 33.3 g/dL (30.0-36.0); Mean Corpuscular Hemoglobin 30.3 pg (28.0-34.0); Mean Corpuscular Volume 90.8 fl (81-99); Mean Platelet Volume 8.2 fL (7.4-10.4); Monocytes # 0.4 10^3/uL (0.2-0.9); Monocytes % 2.3 %; Neutrophils # 16.89 10^3/uL (1.8-7.7); Neutrophils % 90.9 %; Nucleated Red Blood Cells % 0 %; Platelet Count 151 10^3/cmm (130-400); Red Blood Count 4.56 10^6/uL (4.1-5.3); Red Cell Distribution Width 12.7 % (12.1-15.1); White Blood Count 18.6 10^3/uL (4.0-10.0)
[2023-01-24] MEDS: sodium chloride 0.9% 1,000 ML 999 ML IV ×2 (15:44→17:15)
--- NOTE | 2023-01-24 15:47 | W.ED.ABDPA2 ---
HPI - Abdominal Pain General: Chief Complaint: Abdominal Pain Stated Complaint: n/v ab pain Time Seen by Provider: 01/24/23 14:58 History of Present Illness: 77-year-old female with Alzheimer's dementia is here with her who is the historian. He says that she seemed like she was starting to have abdominal pain this morning. Over the last few hours she has vomited several times. She has not had any chills, diarrhea, falls, fever that is aware of. The history is limited due to the patient's dementia. Review of Systems General: Reports: ROS unobtainable due to mental status [facility] ED PFSH: Medical History Alzheimer's dementia Atrial fibrillation COPD (chronic obstructive pulmonary disease) Fracture, intertrochanteric, right femur Hypertension Surgical History History of permanent cardiac pacemaker placement Social History Smoking and tobacco status: never smoked Alcohol intake: never Substance/Drug Use: never Physical Exam Narrative: EXAM NARRATIVE: Patient has her eyes closed and her hands across her chest. She appears older than her stated age. When asked her name and questions about what is going on, she does not answer. Her speaks for her. If I go up and tap her on the shoulder and rub her face gently, she will answer simple questions with a one-word response. She appears thin and deconditioned. She is tachycardic with a murmur. Her radial pulses are 1+. She has vomitus stained on her shirt and around her mouth. Her abdomen feels somewhat firm and she winces when I palpate. There is no distention. It is not tympanitic to percussion. She does have hyperactive, high-pitched bowel sounds. Her breath sounds are clear, her respiratory rate is 18. She has no rashes or wounds. No jaundice or scleral icterus. Musculoskeletal examination is remarkable only for atrophy. Normocephalic and atraumatic. Passive range of motion of the extremities does not cause any pain. Course Vital Signs: Vital signs: Vital Signs Temperature 97.9 F 01/24/23 14:44 Pulse Rate 99 01/24/23 17:30 Respiratory Rate 14 01/24/23 16:24 Blood Pressure 170/124 01/24/23 17:30 Pulse Oximetry 100 01/24/23 17:30 Oxygen Delivery Me thod Room Air 01/24/23 17:30 MDM - Abdominal Pain Medical Decision Making 77-year-old female presents to the emergency department with for vomiting. I am concerned about her abdomen as it feels somewhat firm and she has high-pitched, hyperactive bowel sounds with vomiting. CT scan of the abdomen and pelvis with contrast is indicated. I will also obtain imaging, IV fluids, and provide antiemetics. We will also check a urine analysis as it felt like her bladder was somewhat full. I have asked that they do an in and out cath to make sure we have a good specimen since she does not follow commands. UPDATE: White blood cell count is 18.6 Hemoglobin 13.[address] scan of the abdomen and pelvis shows a sigmoid perforation likely due to diverticulitis. The area has not spread up towards the diaphragm but is more than just a simple microperforate. There are some complex fluid surrounding the perforation but nothing is drainable at this time. I had already given the patient Zosyn empirically based on my suspicion for an acute abdomen on arrival. She is already had 2 L of IV fluid. Her lactic was slightly elevated. I have reevaluated the patient twice and she has developed hematochezia. I did add a type and screen. I have consulted with Dr. Britton, general surgery. After discussing the situation he is asked the patient have TXA now and in 1 hour. He is also recommended that I continue Zosyn and admit to the hospitalist. Patient is already NPO. Lab Data 01/24/23 15:32 01/24/23 15:32 Labs/Radiology: Radiology Impressions Abdomen/Pelvis CT 01/24/23 15:23 IMPRESSION: 1. Sigmoid colonic perforation with adjacent free air and small amount of complex fluid in the pelvis not forming a drainable collection. This is most likely the sequela of acute diverticulitis favored over colitis. No evidence of bowel obstruction. 2. Thickening of the bladder which is likely secondary. Correlate with urinalysis for cystitis. ADDENDUM: 01/24/23 [id number] THIS REPORT CONTAINS FINDINGS THAT MAY BE CRITICAL TO PATIENT CARE. The findings were verbally communicated via telephone conference with BRISA Graff at 5:35 PM CDT on 01/24/2023. The findings were acknowledged and understood. Additional multiple scattered solid noncalcified nodules noticed in the inferior lingula and left lower lobe measuring up to 5 mm maximum size. For patients at low risk (minimal or absent history of smoking and of other known risk factors), no routine follow-up is indicated. For patients at high risk (history of smoking or of other known risk factors), consider optional CT Chest at 12 months. (Reference: Reece) References: Reece Giron, et al. Guidelines for Management of Incidental Pulmonary Nodules Detected on CT Images: From the Fleischner Society 2017. Radiology. 2017;284(1):228-243. Laboratory Results WBC 18.6 10^3/uL (4.0-10.0) H 01/24/23 15:32 RBC 4.56 10^6/uL (4.1-5.3) 01/24/23 15:32 Hgb 13.8 g/dL (11.5-15.3) 01/24/23 15:32 Hct 41.4 % (37.0-47.0) 01/24/23 15:32 MCV 90.8 fl (81-99) 01/24/23 15:32 MCH 30.3 pg (28.0-34.0) 01/24/23 15:32 MCHC 33.3 g/dL (30.0-36.0) 01/24/23 15:32 RDW 12.7 % (12.1-15.1) 01/24/23 15:32 Plt Count 151 10^3/cmm (130-400) 01/24/23 15:32 MPV 8.2 fL (7.4-10.4) 01/24/23 15:32 Neut % (Auto) 90.9 % 01/24/23 15:32 Lymph % (Auto) 5.9 % 01/24/23 15:32 [place] % (Auto) 2.3 % 01/24/23 15:32 Eos % (Auto) 0.2 % 01/24/23 15:32 Baso % (Auto) 0.2 % 01/24/23 15:32 Neut # (Auto) 16.89 10^3/uL (1.8-7.7) H 01/24/23 15:32 Lymph # (Auto) 1.1 10^3/uL (0.8-4.8) 01/24/23 15:32 [place] # (Auto) 0.4 10^3/uL (0.2-0.9) 01/24/23 15:32 Eos # (Auto) 0.0 10^3/uL (0.0-0.8) 01/24/23 15:32 Baso # (Auto) 0.0 10^3/uL (0.0-0.1) 01/24/23 15:32 Nucleated RBC % (auto) 0 % 01/24/23 15:32 Nucleated RBCs # 0.0 /100WBC 01/24/23 15:32 Sodium 140 mmol/L (136-145) 01/24/23 15:32 Potassium 3.8 mmol/L (3.5-5.1) 01/24/23 15:32 Chloride 103 mmol/L (98-107) 01/24/23 15:32 Carbon Dioxide 25 mmol/L (22-29) 01/24/23 15:32 Anion Gap 15.8 (5-19) 01/24/23 15:32 BUN 10 mg/dL (8-23) 01/24/23 15:32 Creatinine 0.9 mg/dL (0.5-0.9) 01/24/23 15:32 GFR Calculation Not Reportable 01/24/23 15:32 Glucose 188 mg/dL (65-115) H 01/24/23 15:32 Calculated Osmolality 294 mOsm/kg (285-295) 01/24/23 15:32 Lactic Acid 2.9 mmol/L (0.5-2.2) H 01/24/23 15:32 Calcium 9.0 mg/dL (8.5-10.5) 01/24/23 15:32 Magnesium 1.3 mg/dL (1.7-2.3) L 01/24/23 15:32 Total Bilirubin 0.6 mg/dL (0.15-1.2) 01/24/23 15:32 AST 14 U/L (0-32) 01/24/23 15:32 ALT 8 U/L (0-33) 01/24/23 15:32 Alkaline Phosphatase 81 U/L (35-105) 01/24/23 15:32 Total Protein 6.1 g/dL (6.6-8.7) L 01/24/23 15:32 Albumin 3.5 g/dL (3.5-5.2) 01/24/23 15:32 Globulin 2.6 g/dL (1.3-4.6) 01/24/23 15:32 Lipase 20 U/L (13-60) 01/24/23 15:32 Urine Color Yellow (Yellow) 01/24/23 16:15 Urine Appearance Clear (CLEAR) 01/24/23 16:15 Urine pH 5 (5-7) 01/24/23 16:15 Ur Specific [place] 1.025 (1.005-1.030) 01/24/23 16:15 Urine Protein Trace (Negative) 01/24/23 16:15 Urine Glucose (UA) Norm (Normal) 01/24/23 16:15 Urine Ketones 1+ (Negative) H 01/24/23 16:15 Urine Blood 2+ (Negative) H 01/24/23 16:15 Urine Nitrate Negative (Negative) 01/24/23 16:15 Urine Bilirubin Neg (Negative) 01/24/23 16:15 Urine Urobilinogen Norm mg/dL (Negative) 01/24/23 16:15 Ur Leukocyte Esterase Negative (Negative) 01/24/23 16:15 Urine RBC 10-15 /hpf (0-2) H 01/24/23 16:15 Urine WBC 0-4 /hpf (0-5) H 01/24/23 16:15 Ur Squamous Epith Cells 0-4 /hpf (0-5) H 01/24/23 16:15 Ur Transition Epith Cell 0-4 /hpf 01/24/23 16:15 Amorphous Sediment Not Reportable 01/24/23 16:15 Urine Bacteria Trace /hpf (NONE) 01/24/23 16:15 Hyaline Casts 0-4 /lpf H 01/24/23 16:15 Urine Mucus 2+ /hpf 01/24/23 16:15 Digoxin 0.9 ng/mL (0.6-1.2) 01/24/23 15:59 Critical Care Time Critical Care Time: Critical Care Time: Yes Total Critical Care Time: 40 Attestation: Critical care time includes evaluation of patient with dementia and communication deficit. Discussion with family. Chart review. Assessment of vital signs. Formulation of differential diagnosis. The patient had an acute abdomen on examination and I empirically started IV fluids and antibiotics. On CT scan we were able to identify the source as a perforated sigmoid, likely due to diverticulitis. I consulted with the , general surgery, and the hospitalist. I have placed admission orders. Risks associated with this diagnosis include hemorrhagic shock, abdominal sepsis, Discharge Plan Discharge Patient Disposition: Admitted As Inpatient Clinical Impression: Diverticulitis of colon with perforation, Hematochezia, Dementia, Sepsis Condition: Stable Coding Level of Care Code ED News Photographer for Kasey Donaldson
[2023-01-24 15:56] LABS: Lactic Sepsis W/Reflex 2.9 mmol/L (0.5-2.2)
[2023-01-24] MEDS: ondansetron 2 mg/ML SDV 2 mL 4 MG IVP (15:57)
[2023-01-24 16:04] LABS: Alanine Aminotransferase 8 U/L (0-33); Albumin Level 3.5 g/dL (3.5-5.2); Alkaline Phosphatase 81 U/L (35-105); Anion Gap 15.8 (5-19); Aspartate Amino Transferase 14 U/L (0-32); Blood Urea Nitrogen 10 mg/dL (8-23); Carbon Dioxide 25 mmol/L (22-29); Chloride 103 mmol/L (98-107); Globulin 2.6 g/dL (1.3-4.6); Glucose 188 mg/dL (65-115); Lipase 20 U/L (13-60); Magnesium 1.3 mg/dL (1.7-2.3); Osmolality Calculated 294 mOsm/kg (285-295); Potassium 3.8 mmol/L (3.5-5.1); Sodium 140 mmol/L (136-145); Total Bilirubin 0.6 mg/dL (0.15-1.2); Total Protein 6.1 g/dL (6.6-8.7)
--- NOTE | 2023-01-24 16:17 | PC.PHAR ---
PTS VERIFIED PTS MEDICATIONS-PTS STATES THE PT NEVER STARTED TAKING THE CRESTOR 20MG DAILY RX FILLED 12/29/22 30D/S-
--- NOTE | 2023-01-24 16:19 | PC.NURSE ---
NURSE ATTEMPTED TO STRAIGHT CATH PT, WHILE ATTEMPTING NURSE NOTED STREAKS OF BLOOD IN UNDERWEAR. WHILE CLEANING UP PT NURSE OBSERVED CAM BLOOD IN STOOL. NURSE NOTIFIED PHYSICIAN, PHYSICIAN OBSERVED BLOOD WELL.
[2023-01-24] MEDS: pantoprazole 40 mg SDV 80 MG IVP (16:31)
[2023-01-24 16:32] LABS: Digoxin 0.9 ng/mL (0.6-1.2)
[2023-01-24 16:55] LABS: Add Urine Microscopic? YES; Bilirubin Urine Neg (Negative); Blood Urine 2+ (Negative); Glucose Urine UA Norm (Normal); Ketones Urine 1+ (Negative); Leukocyte Esterase Urine Negative (Negative); Nitrate Urine Negative (Negative); Protein Urine Trace (Negative); Specific Gravity, Urine 1.025 (1.005-1.030); Urine Appearance Clear (CLEAR); Urine Color Yellow (Yellow); Urobilinogen Urine Norm (Negative); pH Urine 5 (5-7)
[2023-01-24 16:56] LABS: Squamous Epithelial Cell Urine 0-4 /hpf (0-5); WBC Urine 0-4 /hpf (0-5)
[2023-01-24 16:57] LABS: Add Urine Culture? Yes; Bacteria Urine TRACE /hpf; Hyaline Casts Urine 0-4 /lpf; Mucus Urine 2+ /hpf; Transitional Epi Cells Urine 0-4 /hpf
[2023-01-24] MEDS: piperacillin-tazobactam 4.5 GM in sodium chloride 0.9% (plus) 50 ML IV (17:14)
[2023-01-24 17:25] LABS: Reflex Lactate Order REFLEX LACTIC ORDERD
[2023-01-24] MEDS: sodium chloride 0.9% 1,000 ML 125 ML IV (18:11)
[2023-01-24] MEDS: morphine 4 mg/mL SDV 1 mL 2 MG IVP (18:15)
--- NOTE | 2023-01-24 18:21 | P.HP_ITS ---
Providers/Chief Complaint Admitting Physician: Jacqui Cintron MD Primary Care Provider: Kelly Matias APN Chief Complaint: n/v ab pain History of Present Illness Tram Macdonald is a 77 year old female with a past medical history of dementia, A-fib, does not currently appear to be on anticoagulation but is on aspirin and Plavix recently started for possible CVA. Patient unable to participate in history. Per her she developed abdominal pain multiple episodes of nausea and vomiting was brought to the emergency room where CT of the abdomen revealed that patient had sigmoid colonic perforation with adjacent free ER and small amount of complex fluid in the pelvis not forming a drainable collection. Favored to be this equally of acute diverticulitis. No reported fevers. Review of Systems General: Reports: ROS unobtainable due to mental status Medications/Allergies Home Medications Medication Instructions Recorded Confirmed Last Taken Type memantine 10 mg tablet 10 mg PO BID 03/06/20 01/24/23 01/23/23 History nifedipine 30 mg tablet,extended 30 mg PO QAM 03/06/20 01/24/23 01/23/23 History release 24 hr levothyroxine 125 mcg tablet 125 mcg PO QAM 02/09/22 01/24/23 01/23/23 History (Synthroid) pantoprazole 40 mg tablet,delayed 40 mg PO QAM 02/09/22 01/24/23 01/23/23 History release aspirin 81 mg chewable tablet 81 mg PO EVERY OTHER DAY 03/24/22 01/24/23 01/22/23 History digoxin 125 mcg (0.125 mg) tablet 125 mcg PO EVERY OTHER DAY 03/24/22 01/24/23 01/22/23 History propafenone 225 mg 225 mg PO Q12H #60 caps 03/24/22 01/24/23 01/23/23 Rx capsule,extended release 12 hr sennosides 8.6 mg-docusate sodium 1 tab-cap PO BID 03/24/22 01/24/23 01/23/23 History 50 mg tablet (Senna Plus) cyanocobalamin (vitamin B-12) 1,000 mcg PO DAILY PRN unknown 12/28/22 01/24/23 7 Days Ago History 1,000 mcg tablet (Vitamin B-12) ~12/21/22 cyproheptadine 4 mg tablet 4 mg PO QAM 12/28/22 01/24/23 01/23/23 History rosuvastatin 20 mg tablet (Crestor) 20 mg PO DAILY #30 tabs 12/28/22 01/24/23 Unknown Rx clopidogrel 75 mg tablet 75 mg PO QAM 01/24/23 01/24/23 01/23/23 History lorazepam 0.5 mg tablet 0.25 - 0.5 mg PO DAILY PRN Anxiety 01/24/23 01/24/23 Unknown History Allergies Allergy/AdvReac Type Severity Reaction Status Date / Time Sulfa (Sulfonamide Allergy Unknown Verified 01/24/23 16:09 Antibiotics) PFSH Acute PFSH: Medical History Alzheimer's dementia Atrial fibrillation COPD (chronic obstructive pulmonary disease) Fracture, intertrochanteric, right femur Hypertension Surgical History History of permanent cardiac pacemaker placement Social History Smoking and tobacco status: never smoked Alcohol intake: never Substance/Drug Use: never Vitals/I&O/Wt Last Vital Signs Temp 97.9 F 01/24/23 14:44 Pulse 89 01/24/23 18:19 Resp 14 01/24/23 16:24 BP 178/115 01/24/23 18:19 Pulse Ox 94 01/24/23 18:19 O2 Del Method Room Air 01/24/23 18:19 01/24/23 01/24/23 01/24/23 06:59 14:59 22:59 Intake Total 2049 Balance 2049 Weight last 48 hrs Weight 43.998 kg Physical Exam Narrative: General: No acute distress, AO x1 HEENT: PERRLA, pupils bilaterally equal and reactive, pallors not present Chest: Normal vesicular breath sounds, no added sounds, equal good air entry bilaterally CVS: S1-S2 regular, no murmurs, no tachycardia, no gallops, no rubs Abdomen: Soft, nontender, no organomegaly, bowel sounds present Neuro: No focal deficits, no facial deformity, AO x1, moves all extremities Data 01/24/23 15:32 01/24/23 15:32 Other data: [address] [address] [address] Scan Report Signed with Luz Patient: Tram Macdonald Unit #: [id number] : 1945 Age/Sex: 77 / F ADM Date: 01/24/23 Loc: ER Room/Bed: Attending Dr: Ordering Provider/Ordering MD: Brisa Cortez MD Date of Service: 01/24/23 Procedure(s): CT abdomen pelvis w con* [id number] Accession Number(s): [id number] Report Number: [id number]/CT abdomen pelvis w con* [id number] THIS REPORT CONTAINS FINDINGS THAT MAY BE CRITICAL TO PATIENT CARE. The findings were verbally communicated via telephone conference with BRISA Graff at 5:35 PM CDT on 01/24/2023. The findings were acknowledged and understood. ? Additional multiple scattered solid noncalcified nodules noticed in the inferior lingula and left lower lobe measuring up to 5 mm maximum size. ? For patients at low risk (minimal or absent history of smoking and of other known risk factors), no routine follow-up is indicated. For patients at high risk (history of smoking or of other known risk factors), consider optional CT Chest at 12 months. (Reference: Reece) ? References: Reece Grion et al. Guidelines for Management of Incidental Pulmonary Nodules Detected on CT Images: From the Fleischner Society 2017. Radiology. 2017;284(1):228-243. ? Addendum Dictated By: ?Steven Ornelas MD Addendum Signed By: ?Steven Ornelas MD Signed Date/Time: 01/24/23 1867 Addendum Cosigned By: ? PROCEDURE INFORMATION: Exam: CT Abdomen And Pelvis With Contrast Exam date and time: 01/24/2023 4:50 PM Age: 77 years old Clinical indication: Abdominal pain; Generalized; Prior surgery; Surgery date: 6+ months; Surgery type: Hip replacement; Additional info: Firm abdomen, high pitched bowel sounds, dementia TECHNIQUE: Imaging protocol: Computed tomography of the abdomen and pelvis with contrast. Radiation optimization: All CT scans at this facility use at least one of these dose optimization techniques: automated exposure control; mA and/or kV adjustment per patient size (includes targeted exams where dose is matched to clinical indication); or iterative reconstruction. Contrast material: OMNI 350; Contrast volume: 75 ml; Contrast route: INTRAVENOUS (IV);? REPORTING DATA: Count of CT and Cardiac NM exams in prior 12 months: This patient has received 4 known CTs and 0 known cardiac nuclear medicine studies in the 12 months prior to the current study. COMPARISON: CT kidney stone [id number] 06/09/2017 12:29 AM RADIATION DOSE METRICS: Total DLP (mGy-cm): 382.15 FINDINGS: Diaphragm: Small-sized hiatal hernia. Liver: Normal. No mass. Gallbladder and bile ducts: Normal. No calcified stones. No ductal dilation. Pancreas: Normal. No ductal dilation. Spleen: Normal. No splenomegaly. Adrenal glands: Normal. No mass. Kidneys and ureters:? Multiple nonobstructing right nephroliths measuring up to 4 mm. Stomach and bowel: There is wall thickening of the colon beyond the proximal transverse segment which is greatest in the sigmoid. There is perforation of the sigmoid with extraluminal air seen for example on coronal image 15. There is also a small amount of free air just superior to the bladder near the colon. No bowel obstruction. The sigmoid contains scattered diverticuli. Appendix: No evidence of appendicitis. Intraperitoneal space: There is a small amount of complex free fluid in the pelvis. Vasculature: Moderate atherosclerosis. Lymph nodes: Unremarkable. No enlarged lymph nodes. Urinary bladder: The bladder wall is thickened especially anteriorly. Reproductive: Enlarged partly calcified likely fibroid uterus is unchanged. Bones/joints: ORIF changes right proximal femur. Soft tissues: Unremarkable. CT/CT abdomen pelvis w con* [id number] IMPRESSION: 1. ? Sigmoid colonic perforation with adjacent free air and small amount of complex fluid in the pelvis not forming a drainable collection. This is most likely the sequela of acute diverticulitis favored over colitis. No evidence of bowel obstruction. 2. ? Thickening of the bladder which is likely secondary. Correlate with urinalysis for cystitis. ? A&P Assessment and plan (1) Sepsis: As evidenced by leukocytosis, elevated lactate, source of infection by way of perforated diverticulitis with abscess formation. She has received 2 L fluid bolus in the emergency room. Will continue D5 normal saline at 75 cc an hour Repeat lactate Start empiric antibiotic coverage with piperacillin/tazobactam General surgery consulted. N.p.o. (2) Diverticulitis of colon with perforation: As above (3) Atrial fibrillation: Currently rate controlled. Will continue propafenone and digoxin. Digoxin level currently at 0.9. Patient is not on any anticoagulation. She is currently on aspirin and Plavix due to her recent history of CVA. Will hold Plavix in case needs surgical intervention for his diverticulitis during the current admission. (4) Dementia: At baseline Attestations Medical Necessity Statement*: Greater than 2 midnight admission will be needed for management of sepsis, acute diverticulitis with abscess. Coding Level of Care Code Acute Code for [facility] Diagnoses Sepsis A41.9 Diverticulitis of colon with perforation K57.20 Atrial fibrillation I48.91 Dementia F03.90
[2023-01-24 19:18] LABS: Lactic Acid level (Lactate) 2.5 mmol/L (0.5-2.2)
[2023-01-24] MEDS: dextrose 5%-sod chloride 0.9% 1,000 ML 75 ML IV (21:13)
[2023-01-24] MEDS: piperacillin-tazobactam 3.375 GM in sodium chloride 0.9% (plus) 50 ML IV (22:39)
[2023-01-25] VITALS (15 sets, daily range): BP systolic 103–134; BP diastolic 59–90; PULSE 74–143; RESP 14–20; TEMP 36.4–37.8; O2SAT 90–99
[2023-01-25] MEDS: morphine 4 mg/mL SDV 1 mL 2 MG IVP ×3 (02:29→17:17)
[2023-01-25] MEDS: pantoprazole 40 mg SDV IVP ×2 (04:43→17:20)
[2023-01-25] MEDS: piperacillin-tazobactam 3.375 GM in sodium chloride 0.9% (plus) 50 ML IV ×3 (06:08→23:00)
[2023-01-25 06:29] LABS: Alanine Aminotransferase 7 U/L (0-33); Alkaline Phosphatase 67 U/L (35-105); Aspartate Amino Transferase 13 U/L (0-32); Blood Urea Nitrogen 9 mg/dL (8-23); Calcium 7.4 mg/dL (8.5-10.5); Carbon Dioxide 20 mmol/L (22-29); Chloride 108 mmol/L (98-107); Globulin 1.6 g/dL (1.3-4.6); Glucose 168 mg/dL (65-115); Osmolality Calculated 295 mOsm/kg (285-295); Sodium 141 mmol/L (136-145); Total Bilirubin 0.7 mg/dL (0.15-1.2); Total Protein 4.6 g/dL (6.6-8.7)
--- NOTE | 2023-01-25 06:43 | PM.CONSULT ---
Providers/Reason For Consult Consulting Physician/Specialty*: Dr. Jim Britton, DO/General surgery Reason for Consult*: Acute complicated diverticulitis Attending Physician: Jacqui Cintron MD Primary Care Provider: Kelly Matias APN History of Present Illness History of Present Illness Tram Macdonald is a 77 year old female presented to the hospital with an unknown type. Of abdominal pain. She has fairly advanced dementia. HPI and review of systems are limited secondary to this. Most history comes from the . On exam patient is saying that she has no abdominal pain to palpation. CT of the abdomen pelvis shows acute diverticulitis with a contained perforation in the sigmoid colon. No gross free air. Review of Systems General: Reports: ROS unobtainable due to medical condition Medications/Allergies Home Medications Medication Instructions Recorded Confirmed Last Taken Type memantine 10 mg tablet 10 mg PO BID 03/06/20 01/24/23 01/23/23 History nifedipine 30 mg tablet,extended 30 mg PO QAM 03/06/20 01/24/23 01/23/23 History release 24 hr levothyroxine 125 mcg tablet 125 mcg PO QAM 02/09/22 01/24/23 01/23/23 History (Synthroid) pantoprazole 40 mg tablet,delayed 40 mg PO QAM 02/09/22 01/24/23 01/23/23 History release aspirin 81 mg chewable tablet 81 mg PO EVERY OTHER DAY 03/24/22 01/24/23 01/22/23 History digoxin 125 mcg (0.125 mg) tablet 125 mcg PO EVERY OTHER DAY 03/24/22 01/24/23 01/22/23 History propafenone 225 mg 225 mg PO Q12H #60 caps 03/24/22 01/24/23 01/23/23 Rx capsule,extended release 12 hr sennosides 8.6 mg-docusate sodium 1 tab-cap PO BID 03/24/22 01/24/23 01/23/23 History 50 mg tablet (Senna Plus) cyanocobalamin (vitamin B-12) 1,000 mcg PO DAILY PRN unknown 12/28/22 01/24/23 7 Days Ago History 1,000 mcg tablet (Vitamin B-12) ~12/21/22 cyproheptadine 4 mg tablet 4 mg PO QAM 12/28/22 01/24/23 01/23/23 History rosuvastatin 20 mg tablet (Crestor) 20 mg PO DAILY #30 tabs 12/28/22 01/24/23 Unknown Rx clopidogrel 75 mg tablet 75 mg PO QAM 01/24/23 01/24/23 01/23/23 History lorazepam 0.5 mg tablet 0.25 - 0.5 mg PO DAILY PRN Anxiety 01/24/23 01/24/23 Unknown History Allergies Allergy/AdvReac Type Severity Reaction Status Date / Time Sulfa (Sulfonamide Allergy Unknown Verified 01/24/23 16:09 Antibiotics) Current Medications Generic Name Dose Route Start Last Admin Trade Name Freq PRN Reason Stop Dose Admin Enoxaparin Sodium 40 mg 01/24/23 20:00 01/24/23 21:40 Enoxaparin 40 Mg/0.4 Ml Syringe SUBCUT Not Given Q24H CADENCE Dextrose/Sodium Chloride 1,000 mls @ 75 mls/hr 01/24/23 18:30 01/25/23 10:34 Dextrose 5%-Sod Chloride 0.9% IV 75 mls/hr .[id number] CADENCE Administration Piperacillin Sod/Tazobactam 50 mls @ 12.5 mls/hr 01/24/23 23:00 01/25/23 10:35 Sod 3.375 gm/ Sodium Chloride IV Infused Q8H CADENCE Infusion Levothyroxine Sodium 125 mcg 01/25/23 06:00 01/25/23 05:26 Levothyroxine 125 Mcg Tablet PO Not Given QAM CADENCE Morphine Sulfate 2 mg 01/24/23 18:17 01/25/23 08:34 Morphine 4 Mg/Ml Sdv 1 Ml IVP 2 mg Q4H PRN Administration SEVERE PAIN Non-Formulary Medication 225 mg 01/24/23 18:30 01/25/23 05:39 Propafenone PO Not Given Q12H CADENCE Pantoprazole Sodium 40 mg 01/25/23 05:00 01/25/23 04:43 Pantoprazole 40 Mg Sdv IVP 40 mg Q12H CADENCE Administration PFSH Acute PFSH: Medical History Alzheimer's dementia Atrial fibrillation COPD (chronic obstructive pulmonary disease) Fracture, intertrochanteric, right femur Hypertension Surgical History History of permanent cardiac pacemaker placement Social History Smoking and tobacco status: never smoked Alcohol intake: never Substance/Drug Use: never Vitals/I&O/Wt Last Vital Signs Temp 98.7 F 01/25/23 11:23 Pulse 74 01/25/23 11:23 Resp 20 H 01/25/23 11:23 BP 111/69 01/25/23 11:23 Pulse Ox 94 01/25/23 11:23 O2 Del Method Room Air 01/25/23 11:23 01/24/23 01/25/23 01/25/23 22:59 06:59 14:59 Intake Total 2160 / 2160 50 / 2210 2049 Output Total 600 / 600 125 / 725 Balance 1560 / 1560 -75 / 1485 2049 Weight last 48 hrs Weight 97 lb Physical Exam Narrative: General : Patient is well developed , no acute distress, oriented only to self Head : Normal cephalic, a-traumatic. Ears : Pinnae and external canal are normal. Hearing is normal. Eyes : PERRLA, Sclera and injection are normal. No conjunctival discharge. Nose : Mucous membranes are without erythema. Throat : buccal mucosa is normal, gums are without significant recession or hypertrophy. Lungs : Equal chest rise bilaterally, no use of accessory muscles, trachea is midline. Cor : Rate and rhythm are normal. Abdomen : Soft, ND, NT, no g/r/m, her abdomen is rather firm but nondistended. reports that her abdomen is always like that and she is definitely nontender to palpation Extremities : No edema, no cyanosis or clubbing, dorsalis pedis pulses are present bilaterally, non-tender to palpation of calves. Upper extremities are normal bilaterally. Back : non-tender to palpation, no CVA tenderness. Neuro : CN II - XII intact, Upper and lower extremities have equal and full strength Urinary Catheter Management: Egan: Cath Placed During This Visit: yes Reason for Continuing Indwelling Catheter: Other Urinary Catheter Date of Insertion: 01/24/23 Urinary Catheter Time of Insertion: 19:00 Data 01/25/23 09:30 01/25/23 05:55 Micro: Microbiology 01/24/23 16:15 Urine Culture - Preliminary Urine,Clean Catch A&P Assessment and plan (1) Diverticulitis of colon with perforation: Plan Patient is nontender at this time and her perforation appears to be contained. We will continue treating her conservatively for now with IV antibiotics and n.p.o. status. Will reassess tomorrow for possible liquid diet. If her symptoms progress she will require an exploratory laparotomy with Mccormick's procedure. The is understanding. Medical management per hospitalist Coding Level of Care Code 26549 Diagnoses Diverticulitis of colon with perforation K57.20
[2023-01-25 06:57] LABS: Anion Gap 16.4 (5-19); Potassium 3.4 mmol/L (3.5-5.1)
[2023-01-25 09:41] LABS: Basophils # 0.1 10^3/uL (0.0-0.1); Basophils % 0.3 %; Hematocrit 31.6 % (37.0-47.0); Hemoglobin 10.5 g/dL (11.5-15.3); Lymphocytes # 2.1 10^3/uL (0.8-4.8); Mean Corpuscular HGB Conc 33.2 g/dL (30.0-36.0); Mean Corpuscular Hemoglobin 30.3 pg (28.0-34.0); Mean Corpuscular Volume 91.3 fl (81-99); Mean Platelet Volume 8.3 fL (7.4-10.4); Monocytes # 0.4 10^3/uL (0.2-0.9); Monocytes % 1.6 %; Neutrophils # 23.64 10^3/uL (1.8-7.7); Neutrophils % 88.5 %; Nucleated Red Blood Cells % 0 %; Platelet Count 132 10^3/cmm (130-400); Red Blood Count 3.46 10^6/uL (4.1-5.3); Red Cell Distribution Width 13.2 % (12.1-15.1); White Blood Count 26.7 10^3/uL (4.0-10.0)
[2023-01-25 10:03] LABS: Lactic Sepsis W/Reflex 2.1 mmol/L (0.5-2.2)
[2023-01-25] MEDS: dextrose 5%-sod chloride 0.9% 1,000 ML 75 ML IV ×2 (10:34→21:16)
[2023-01-25 11:27] LABS: Reflex Lactate Order REFLEX LACTIC ORDERD
[2023-01-25 13:48] LABS: Lactic Acid level (Lactate) 1.6 mmol/L (0.5-2.2)
--- NOTE | 2023-01-25 15:16 | PM.PN ---
Subjective Subjective: Afebrile, hemodynamically stable. White blood cell count trended up. Lactate is normalized. Patient remains disoriented, keeps repeating that she wants to go home with Lucas. Medications: Reviewed: Yes Vitals/I&O/Wt Last Vital Signs Temp 98.7 F 01/25/23 11:23 Pulse 74 01/25/23 11:23 Resp 20 H 01/25/23 11:23 BP 111/69 01/25/23 11:23 Pulse Ox 94 01/25/23 11:23 O2 Del Method Room Air 01/25/23 11:23 01/25/23 01/25/23 01/25/23 06:59 14:59 22:59 Intake Total 50 / 2210 2049 Output Total 125 / 725 Balance -75 / 1485 2049 Weight last 48 hrs Weight 43.998 kg Physical Exam Narrative: General: No acute distress, AO x1 HEENT: PERRLA, pupils bilaterally equal and reactive, pallors not present Chest: Normal vesicular breath sounds, no added sounds, equal good air entry bilaterally CVS: S1-S2 regular, no murmurs, no tachycardia, no gallops, no rubs Abdomen: Soft, firm,, no organomegaly Urinary Catheter Management: Egan: Cath Placed During This Visit: yes Reason for Continuing Indwelling Catheter: Other Urinary Catheter Date of Insertion: 01/24/23 Urinary Catheter Time of Insertion: 19:00 Data 01/25/23 09:30 01/25/23 05:55 Micro: Microbiology 01/24/23 16:15 Urine Culture - Preliminary Urine,Clean Catch NO GROWTH AT 18-24 HOURS A&P Assessment and plan (1) Sepsis: As evidenced by leukocytosis, elevated lactate, source of infection by way of perforated diverticulitis with abscess formation. She has received 2 L fluid bolus in the emergency room. Will continue D5 normal saline at 75 cc an hour Repeat lactate now improved at 2.1 continue empiric antibiotic coverage with piperacillin/tazobactam General surgery consulted, appreciate recommendations N.p.o. (2) Diverticulitis of colon with perforation: As above (3) Atrial fibrillation: Currently rate controlled. Will continue propafenone and digoxin. Digoxin level currently at 0.9. Patient is not on any anticoagulation. She is currently on aspirin and Plavix due to her recent history of CVA. Will hold Plavix in case needs surgical intervention for diverticulitis during the current admission. (4) Dementia: At baseline Attestations Medical Necessity Statement*: Continued medical management for perforated diverticular abscess, continue IV antibiotics IV fluids, monitor for improvement Coding Level of Care Code Acute Code for Chg Fwd Moderate MDM includes number and complexity of problems actively addressed during encounter, amount and/or complexity of data reviewed/ordered and described risk of complication, morbidity or mortality of management as documented Diagnoses Sepsis A41.9 Diverticulitis of colon with perforation K57.20 Atrial fibrillation I48.91 Dementia F03.90
[2023-01-25] MEDS: ondansetron 2 mg/ML SDV 2 mL 4 MG IVP (18:46)
[2023-01-25] MEDS: enoxaparin 40 mg/0.4 mL Syringe SUBCUT (21:13)
[2023-01-25] MEDS: dilTIAZem 5 mg/mL SDV 5 mL 10 MG IVP (22:08)
[2023-01-25] MEDS: dilTIAZem 100 MG in sodium chloride 0.9% (add-van) 100 ML 10 MG IV (23:47)
[2023-01-26] VITALS (18 sets, daily range): BP systolic 96–151; BP diastolic 50–80; PULSE 68–139; RESP 16–30; TEMP 36.3–38.5; O2SAT 88–92
--- NOTE | 2023-01-26 00:48 | PC.NURSE ---
pt heartcrate elevated ranging 140's-150's, first dose of cardizem 10 mg IV pushed given at 2007, effective for short period and pt heart rate began to climb up again, new order received from Dr. Duarte for Cardizem drip set rate at 10mg/hr, initiated at 0000, pt transferred to cardiac floor room 103, report given to Daisha RICO.pt transferred at
[2023-01-26] MEDS: morphine 4 mg/mL SDV 1 mL 2 MG IVP ×3 (00:51→19:00)
[2023-01-26] MEDS: ondansetron 2 mg/ML SDV 2 mL 4 MG IVP (00:51)
[2023-01-26] MEDS: dilTIAZem 100 MG in sodium chloride 0.9% (add-van) 100 ML 15 MG IV (01:06)
--- NOTE | 2023-01-26 01:07 | PC.NURSE ---
Patient received from med-surg unit for management of atrial fib with rapid rate HR 134. Patient is awake and alert. Patient flinched with the slightest ouch on her lower right abdomen. Patient points to same area when asked about pain. Patient unable to rate pain on scale of 1-10. at bedside. Discussed current plans for HR management, pain medication available. Notified hos[italist on duty of patient current HR and elevated temp.
--- NOTE | 2023-01-26 01:30 | PC.NURSE ---
At 0120 patient had a pause in her heart rhythmn, and for a few minutes HR varied from 60-128. Patient in no apparent distress. Patient then converted from atrial fib to NSR. HR 76. Hospitalist notified.
[2023-01-26 05:37] LABS: Basophils # 0.1 10^3/uL (0.0-0.1); Basophils % 0.2 %; Eosinophils # 0.1 10^3/uL (0.0-0.8); Eosinophils % 0.3 %; Hematocrit 31.4 % (37.0-47.0); Hemoglobin 10.4 g/dL (11.5-15.3); Lymphocytes # 1.8 10^3/uL (0.8-4.8); Lymphocytes % 8.6 %; Mean Corpuscular HGB Conc 33.1 g/dL (30.0-36.0); Mean Corpuscular Hemoglobin 30.6 pg (28.0-34.0); Mean Corpuscular Volume 92.4 fl (81-99); Mean Platelet Volume 8.6 fL (7.4-10.4); Monocytes # 0.4 10^3/uL (0.2-0.9); Monocytes % 2.1 %; Neutrophils # 17.52 10^3/uL (1.8-7.7); Neutrophils % 86.3 %; Nucleated Red Blood Cells % 0 %; Platelet Count 110 10^3/cmm (130-400); Red Cell Distribution Width 13.4 % (12.1-15.1); White Blood Count 20.3 10^3/uL (4.0-10.0)
[2023-01-26] MEDS: piperacillin-tazobactam 3.375 GM in sodium chloride 0.9% (plus) 50 ML IV (05:56)
[2023-01-26] MEDS: pantoprazole 40 mg SDV IVP ×2 (05:56→18:08)
[2023-01-26 06:03] LABS: Alanine Aminotransferase 6 U/L (0-33); Albumin Level 2.6 g/dL (3.5-5.2); Alkaline Phosphatase 73 U/L (35-105); Anion Gap 10.9 (5-19); Aspartate Amino Transferase 10 U/L (0-32); Blood Urea Nitrogen 7 mg/dL (8-23); Calcium 7.3 mg/dL (8.5-10.5); Carbon Dioxide 26 mmol/L (22-29); Chloride 110 mmol/L (98-107); Globulin 1.7 g/dL (1.3-4.6); Glucose 154 mg/dL (65-115); Magnesium 1.2 mg/dL (1.7-2.3); Osmolality Calculated 299 mOsm/kg (285-295); Sodium 144 mmol/L (136-145); Total Bilirubin 0.6 mg/dL (0.15-1.2); Total Protein 4.3 g/dL (6.6-8.7)
[2023-01-26 06:10] LABS: Potassium 2.9 mmol/L (3.5-5.1)
--- NOTE | 2023-01-26 07:10 | XR_ITS ---
WS: [id number] XR acute abdomen series [id number] REASON FOR EXAM: gross free air? FINDINGS: No free air or retroperitoneal air. The right and transverse colons are mild to moderately distended. There is significant distention of presumed sigmoid colon in the left lower abdomen/upper pelvis. The dilated segment of sigmoid colon ends abruptly abruptly adjacent to a lucency which contains small c ollections of gas. There is no gas in the rectum. IMPRESSION: Correlation with CT scan of the previous day. There is a segment of sigmoid colon which shows marked, somewhat lobular, mural thickening and near occlusion of the lumen with a complex extraluminal bubb ly gas collection. This would account for the finding seen in the left lower abdomen and pelvis on t he current plain film. The extracolonic collection measures 4.4 x 3.[address] scan. While the mo st common cause of the presumed sigmoid perforation would be diverticulitis no other diverticuli are seen and with the appearance of the colon, a perforated sigmoid carcinoma with need to be considered. The colon is at least partially obstructed.
--- NOTE | 2023-01-26 09:18 | P.PN_ITS ---
Subjective Subjective: Patient seen and examined. She is in significant more pain today. Vitals/I&O/Wt Last Vital Signs Temp 99.7 F H 01/27/23 16:00 Pulse 116 H 01/27/23 16:00 Resp 30 H 01/27/23 16:00 BP 131/90 01/27/23 16:00 Pulse Ox 98 01/27/23 16:00 O2 Del Method Room Air 01/27/23 16:00 O2 Flow Rate 3 01/27/23 05:10 01/27/23 01/27/23 01/27/23 06:59 14:59 22:59 Intake Total 827.083 / 2795.583 1000 / 1000 Output Total 350 / 1140 Balance 477.083 / 8195.391 9699 / 1000 Physical Exam Narrative: General: No acute distress, awake alert and oriented only to self, and significant pain Abdomen: Soft, nondistended, tender to palpation left lower quadrant more so th an yesterday, no guarding rebound or masses Urinary Catheter Management: Egan: Cath Placed During This Visit: yes Reason for Continuing Indwelling Catheter: Acute Urinary Retention or Obstruction Urinary Catheter Date of Insertion: 01/24/23 Urinary Catheter Time of Insertion: 19:00 Data 01/27/23 03:45 01/27/23 03:45 Micro: Microbiology 01/26/23 15:06 Blood Culture - Preliminary Blood NEGATIVE TO DATE 01/26/23 15:00 Blood Culture - Preliminary Blood NEGATIVE TO DATE A&P Assessment and plan (1) Diverticulitis of colon with perforation: Plan Patient's condition has deteriorated significantly. At this point she requires exploratory laparotomy and Mccormick's procedure. I discussed this with the family along with the option of medical management only versus comfort care. They would like to proceed with medical management only and are refusing surgery. They are making the patient DNR, DNI and they do not want any vasopressors used. Medical management per hospitalist Attestations Medical Necessity Statement*: Per primary Coding Level of Care Code 43277 Diagnoses Diverticulitis of colon with perforation K57.20
[2023-01-26] MEDS: dextrose 5%-sod chloride 0.9% 1,000 ML 75 ML IV (11:44)
[2023-01-26] MEDS: meropenem 1,000 MG in sodium chloride 0.9% (plus) 50 ML 100 MG IV (11:45)
[2023-01-26] MEDS: lidocaine 1% 5 ML in potassium chloride premix 100 ML 26.25 ML IV (11:46)
[2023-01-26] MEDS: vancomycin 750 MG in sodium chloride 0.9% 250 ML 250 MG IV (11:58)
[2023-01-26 13:53] LABS: Adenovirus Not Detected (NOT DETECT); Chlamydia Pneumoniae Not Detected (NOT DETECT); Coronavirus 229E,HKU1,NL63,OC4 Not Detected (NOT DETECT); Human Metapneumovirus Not Detected (NOT DETECT); Human Rhinovirus/Enterovirus Detected (NOT DETECT); Influenza A Not Detected (NOT DETECT); Influenza A H1 Not Detected (NOT DETECT); Influenza A H1-2009 Not Detected (NOT DETECT); Influenza A H3 Not Detected (NOT DETECT); Influenza B Not Detected (NOT DETECT); Mycoplasma Pneumoniae Not Detected (NOT DETECT); Parainfluenza Virus Type 1 Not Detected (NOT DETECT); Parainfluenza Virus Type 2 Not Detected (NOT DETECT); Parainfluenza Virus Type 3 Not Detected (NOT DETECT); Parainfluenza Virus Type 4 Not Detected (NOT DETECT); Respiratory Syncytial Virus A Not Detected (NOT DETECT); Respiratory Syncytial Virus B Not Detected (NOT DETECT); SARS-COV-2 Not Detected (NOT DETECT)
--- NOTE | 2023-01-26 14:14 | P.PN_ITS ---
Subjective Subjective: Leukocytosis persisting at 20.3. Overnight patient had a Tmax of 101 Fahrenheit. She is complaining of increased pain today. X-ray of her abdomen and pelvis was performed today which showed significant distention of the presumed sigmoid colon, dilated so colon segment ends abruptly which contained small collections of gas. There is no gas in the rectum. The colon is noted to be at least partially obstructed. Overnight patient also developed A-fib with RVR for which she was transferred to [facility], overnight required a Cardizem push followed by Cardizem infusion. Medications: Reviewed: Yes Vitals/I&O/Wt Last Vital Signs Temp 97.3 F L 01/26/23 11:45 Pulse 77 01/26/23 13:19 Resp 17 01/26/23 11:43 BP 119/61 01/26/23 11:43 Pulse Ox 88 L 01/26/23 11:43 O2 Del Method Room Air 01/26/23 11:43 01/25/23 01/26/23 01/26/23 22:59 06:59 14:59 Intake Total 852.5 / 2902.5 65.834 / 2968.334 1107.5 / 1107.5 Output Total 570 / 570 450 / 1020 450 / 450 Balance 282.5 / 2332.5 -384.166 / 1948.334 657.5 / 657.5 Weight last 48 hrs Weight 43.998 kg Physical Exam Narrative: General: No acute distress, AO x1, ill-appearing, dehydrated HEENT: PERRLA, pupils bilaterally equal and reactive, pallors not present Chest: Normal vesicular breath sounds anteriorly CVS: S1-S2 regular, no murmurs, no tachycardia, no gallops, no rubs Abdomen: Soft, tender to palpation over lower abdomen Neuro: No focal deficits grossly Urinary Catheter Management: Egan: Cath Placed During This Visit: yes Reason for Continuing Indwelling Catheter: Accurate Measurement of Urinary Output in Critically Ill Patients Urinary Catheter Date of Insertion: 01/24/23 Urinary Catheter Time of Insertion: 19:00 Data 01/26/23 05:20 01/26/23 05:20 Micro: Microbiology 01/24/23 16:15 Urine Culture - Final Urine,Clean Catch NO GROWTH AT 36-48 HOURS Blood cultures: It appears blood cultures from day of admission were not collected. Check blood cultures today Other data: FINDINGS: No free air or retroperitoneal air. The right and transverse colons are mild to moderately distended. There is significant distention of presumed sigmoid colon in the left lower abdomen/upper pelvis. The dilated segment of sigmoid colon ends abruptly abruptly adjacent to a lucency which contains small collections of gas. There is no gas in the rectum. IMPRESSION: Correlation with CT scan of the previous day. There is a segment of sigmoid colon which shows marked, somewhat lobular, mural thickening and near occlusion of the lumen with a complex extraluminal bubbly gas collection. This would acc ount for the finding seen in the left lower abdomen and pelvis on the current plain film. The extracolonic collection measures 4.4 x 3.[address] scan. While the most common cause of the presumed sigmoid perforation would be diverticulitis no other diverticuli are seen and with the appearance of the colon, a perforated sigmoid carcinoma with need to be considered. The colon is at least partially obstructed. A&P Assessment and plan (1) Sepsis: As evidenced by leukocytosis, elevated lactate, source of infection by way of perforated diverticulitis with abscess formation. Overnight patient spiked a fever of 101.7 Fahrenheit, her white count also continues to be elevated to 20,000. She is complaining of increased pain today. X-ray of the abdomen was repeated today with findings as noted above. check blood cx, it appears blood cx was not collected on day of admission Antibiotic coverage has been broadened from piperacillin/tazobactam to meropenem and vancomycin. There was extensive discussion this morning between general surgery and patient's family and given her multiple comorbidities overall poor functional status, family has elected not to proceed with any surgical interventions. In case patient fails to improve with medical management, family is inclined to transition to comfort care management only. (2) Diverticulitis of colon with perforation: As above (3) Atrial fibrillation: overnight a fib with RVR , resolved with cardizem push and transient cardizem infusion She has not been getting propafenone since admission as medication is N/A on formulary Patient is not on any anticoagulation. Change rate control medication to iv beta ema change po to iv digoxin 125mcg every other day (4) Dementia: At baseline (5) Hypokalemia: Supplement with 40meq iv KCL today change fluids to D5NS + 40 KCL @ 125 cc/hr Plan DVT prophylaxis: Lovenox CODE STATUS: DNR/DNI. Does not want ICU admission or pressor support Attestations Medical Necessity Statement*: broaden antibiotic coverage, worsening abdominal pain, X ray with obstruction and perfortaion, GOC discussion, IV fluids Coding Level of Care Code Acute Code for Chg Fwd High MDM includes number and complexity of problems actively addressed during encounter, amount and/or complexity of data reviewed/ordered and described risk of complication, morbidity or mortality of management as documented Diagnoses Sepsis A41.9 Diverticulitis of colon with perforation K57.20 Atrial fibrillation I48.91 Dementia F03.90 Hypokalemia E87.6
[2023-01-26] MEDS: metoprolol tartrate 1 mg/1 mL SDV 5 mL 2.5 MG IVP ×3 (15:40→20:56)
[2023-01-26] MEDS: digoxin 250 mcg/ml INJ 2 mL 125 MCG IVP (15:41)
[2023-01-26] MEDS: dextrose 5%-ns + KCl 40 40 MEQ/1,000 ML BAG 125 MEQ IV ×2 (18:08→23:57)
--- NOTE | 2023-01-26 20:35 | PC.NURSE ---
Addendum entered by Mariann Weaver RN 01/26/23 21:12: See MDs orders placed. Original Note: Patient is c/o extreme pain to her lower abdomen. Morphine as ordered has been given. Patient appears very anxious and agitated. Spouse at bedside. Heart rate is mildly elevated 100s to 120s. SpO2 staying around 85. Attempted O2 but patient refuses to leave NC in place. Informed Dr Duarte of patient condition. Will continue to monitor.
[2023-01-26] MEDS: LORazepam 2 mg/mL INJ 1 mL 0.5 MG IVP (20:55)
[2023-01-26] MEDS: enoxaparin 40 mg/0.4 mL Syringe SUBCUT (20:56)
--- NOTE | 2023-01-26 21:13 | PC.NURSE ---
Informed Dr Duarte that Zyprexa not given at this time. Ativan and hyoscyamine effective at this time. Patient resting with eyes closed, HR at 75, SpO2 99%. Spouse remains at bedside. Will continue to monitor.
[2023-01-26] MEDS: meropenem 2,000 MG in sodium chloride 0.9% (100 ml) 100 ML 100 MG IV (23:55)
[2023-01-27] VITALS (12 sets, daily range): BP systolic 115–157; BP diastolic 67–90; PULSE 63–116; RESP 16–30; TEMP 36.8–37.7; O2SAT 97–100
--- NOTE | 2023-01-27 02:41 | PC.NURSE ---
Informed Dr Duarte of steady heart rate at 68 in NSR. Received instruction to hold 0245 dose of Metoprolol 2.5mg IVP and to give next dose.
[2023-01-27 04:04] LABS: Basophils % 0.2 %; Eosinophils # 0.2 10^3/uL (0.0-0.8); Eosinophils % 1.4 %; Hematocrit 33.1 % (37.0-47.0); Hemoglobin 10.6 g/dL (11.5-15.3); Lymphocytes # 1.4 10^3/uL (0.8-4.8); Lymphocytes % 9.5 %; Mean Corpuscular Hemoglobin 29.9 pg (28.0-34.0); Mean Corpuscular Volume 93.2 fl (81-99); Mean Platelet Volume 8.8 fL (7.4-10.4); Monocytes # 0.5 10^3/uL (0.2-0.9); Monocytes % 3.3 %; Neutrophils # 12.28 10^3/uL (1.8-7.7); Neutrophils % 83.8 %; Nucleated Red Blood Cells % 0 %; Platelet Count 108 10^3/cmm (130-400); Red Blood Count 3.55 10^6/uL (4.1-5.3); Red Cell Distribution Width 13.2 % (12.1-15.1); White Blood Count 14.7 10^3/uL (4.0-10.0)
[2023-01-27 04:24] LABS: Lactate (Lactic Acid level) 2.2 mmol/L (0.5-2.2)
[2023-01-27 04:26] LABS: Alanine Aminotransferase < 5 U/L (0-33); Albumin Level 2.6 g/dL (3.5-5.2); Alkaline Phosphatase 73 U/L (35-105); Anion Gap 11.8 (5-19); Aspartate Amino Transferase 8 U/L (0-32); Blood Urea Nitrogen 5 mg/dL (8-23); Calcium 7.6 mg/dL (8.5-10.5); Carbon Dioxide 25 mmol/L (22-29); Chloride 113 mmol/L (98-107); Globulin 1.7 g/dL (1.3-4.6); Glucose 164 mg/dL (65-115); Osmolality Calculated 303 mOsm/kg (285-295); Potassium 3.8 mmol/L (3.5-5.1); Sodium 146 mmol/L (136-145); Total Bilirubin 0.5 mg/dL (0.15-1.2); Total Protein 4.3 g/dL (6.6-8.7)
[2023-01-27] MEDS: pantoprazole 40 mg SDV IVP ×2 (05:15→17:06)
[2023-01-27] MEDS: metoprolol tartrate 1 mg/1 mL SDV 5 mL 2.5 MG IVP (09:58)
[2023-01-27] MEDS: vancomycin 750 MG in sodium chloride 0.9% 250 ML 250 MG IV (09:58)
--- NOTE | 2023-01-27 10:57 | PC.SOCIAL ---
Pg 2 IMM Explained to pt Pg 2 IMM. No questions voiced. Provided pt a copy. Initialed, dated, & timed a copy & placed in chart.
[2023-01-27] MEDS: dextrose 5% + KCl 20 mEq 20 MEQ/1,000 ML BAG 100 MEQ IV ×2 (12:04→21:06)
[2023-01-27] MEDS: meropenem 2,000 MG in sodium chloride 0.9% (100 ml) 100 ML 100 MG IV ×2 (12:25→23:28)
--- NOTE | 2023-01-27 14:44 | P.PN_ITS ---
Subjective Subjective: Leukocytosis improving down to 14 today. Developing hypernatremia. Tmax 100.9 Fahrenheit overnight. Pain is currently controlled, however on palpation patient does exhibit wincing. There is tenderness in the left lower quadrant. has not passed flatus or had a BM Medications: Reviewed: Yes Vitals/I&O/Wt Last Vital Signs Temp 98.9 F 01/27/23 11:32 Pulse 110 H 01/27/23 13:38 Resp 21 H 01/27/23 11:32 BP 157/70 01/27/23 11:32 Pulse Ox 99 01/27/23 11:32 O2 Del Method Aerosol Mask 01/27/23 11:32 O2 Flow Rate 3 01/27/23 05:10 01/26/23 01/27/23 01/27/23 22:59 06:59 14:59 Intake Total 861.0 / 1968.5 827.083 / 2795.583 1000 / 1000 Output Total 340 / 790 350 / 1140 Balance 521.0 / 1178.5 477.083 / 3302.198 5960 / 1000 Physical Exam Narrative: General: No acute distress, AO x1,chronically ill-appearing, pain is currently controlled HEENT: PERRLA, pupils bilaterally equal and reactive, pallors not present Chest: Normal vesicular breath sounds anteriorly CVS: S1-S2 regular, no murmurs, no tachycardia, no gallops, no rubs Abdomen: firm, tender to palpation LLQ, sluggish bowel sounds Neuro: No focal deficits grossly Urinary Catheter Management: Egan: Cath Placed During This Visit: yes Reason for Continuing Indwelling Catheter: Acute Urinary Retention or Obstruction Urinary Catheter Date of Insertion: 01/24/23 Urinary Catheter Time of Insertion: 19:00 Data 01/27/23 03:45 01/27/23 03:45 Micro: Microbiology 01/26/23 15:06 Blood Culture - Preliminary Blood SPECIMEN COLLECTED 01/26/23 15:00 Blood Culture - Preliminary Blood SPECIMEN COLLECTED 01/24/23 16:15 Urine Culture - Final Urine,Clean Catch A&P Assessment and plan (1) Sepsis: As evidenced by leukocytosis, elevated lactate, source of infection by way of perforated diverticulitis with abscess formation. Currently on empiric abx coverage with meropenem and vancomycin leukocytosis improving. t max 100.9F pending blood cx appreciate surgery recommendations Given her multiple comorbidities overall poor functional status, family has elec christofer not to proceed with any surgical interventions. pain control with prn morphine, currently appears to be comfortable. (2) Diverticulitis of colon with perforation: As above (3) Atrial fibrillation: Hr is currently controlled Off cardizem infusion Continue iv beta ema and iv digoxin 125mcg every other day (4) Dementia: At baseline (5) Hypokalemia: now improved (6) Hypernatremia: Na increasing to 146, likely from dehydartion change fluids to d5W + 20 kcl from d5NS today Plan DVT prophylaxis: Lovenox CODE STATUS: DNR/DNI. Does not want ICU admission or pressor support Attestations Medical Necessity Statement*: continued need for iv abx, pain management, return of bowel function Coding Level of Care Code Acute Code for [facility] Diagnoses Sepsis A41.9 Diverticulitis of colon with perforation K57.20 Atrial fibrillation I48.91 Dementia F03.90 Hypokalemia E87.6 Hypernatremia E87.0
[2023-01-27] MEDS: metoprolol tartrate 1 mg/1 mL SDV 5 mL 5 MG IVP ×3 (15:55→21:06)
[2023-01-27] MEDS: morphine 4 mg/mL SDV 1 mL 2 MG IVP (17:06)
--- NOTE | 2023-01-27 18:35 | PM.PN ---
Subjective Subjective: Patient seen and examined. Continues to have significant left lower quadrant abdominal pain. No bowel movement yet Vitals/I&O/Wt Last Vital Signs Temp 99.1 F 01/27/23 23:33 Pulse 62 01/28/23 05:03 Resp 17 01/28/23 05:03 BP 124/73 01/28/23 05:03 Pulse Ox 98 01/28/23 05:03 O2 Del Method Room Air 01/27/23 23:33 O2 Flow Rate 3 01/27/23 05:10 01/27/23 01/28/23 01/28/23 22:59 06:59 14:59 Intake Total 1253.333 / 2253.333 986.667 / 3240.000 Output Total 745 / 745 550 / 1295 Balance 508.333 / 1508.333 436.667 / 1945.000 Physical Exam Narrative: General: No acute distress, oriented only to self Abdomen: Soft, tender to palpation left lower quadrant, nondistended, no guarding or rebound Urinary Catheter Management: Egan: Cath Placed During This Visit: yes Reason for Continuing Indwelling Catheter: Accurate Measurement of Urinary Output in Critically Ill Patients Urinary Catheter Date of Insertion: 01/24/23 Urinary Catheter Time of Insertion: 19:00 Data 01/28/23 03:14 01/28/23 03:14 Micro: Microbiology 01/26/23 15:06 Blood Culture - Preliminary Blood NEGATIVE TO DATE 01/26/23 15:00 Blood Culture - Preliminary Blood NEGATIVE TO DATE A&P Assessment and plan (1) Diverticulitis of colon with perforation: Plan Continue medical management. The family has decided against surgery and made her DNR, DNI and they do not want any vasopressors used. She does however continue to improve as far as her fever curve and leukocytosis. Medical management per hospitalist Attestations Medical Necessity Statement*: Per primary Coding Level of Care Code 20986 Diagnoses Diverticulitis of colon with perforation K57.20
[2023-01-27] MEDS: enoxaparin 40 mg/0.4 mL Syringe SUBCUT (21:06)
[2023-01-28] VITALS (14 sets, daily range): BP systolic 113–156; BP diastolic 59–89; PULSE 60–72; RESP 15–25; TEMP 36.6–37.3; O2SAT 94–98
[2023-01-28] MEDS: morphine 4 mg/mL SDV 1 mL 2 MG IVP ×4 (00:21→23:55)
[2023-01-28] MEDS: metoprolol tartrate 1 mg/1 mL SDV 5 mL 5 MG IVP ×5 (02:42→23:48)
[2023-01-28 04:30] LABS: Basophils % 0.3 %; Eosinophils # 0.4 10^3/uL (0.0-0.8); Eosinophils % 4.1 %; Hemoglobin 9.2 g/dL (11.5-15.3); Lymphocytes # 1.3 10^3/uL (0.8-4.8); Lymphocytes % 14.9 %; Mean Corpuscular HGB Conc 32.9 g/dL (30.0-36.0); Mean Corpuscular Hemoglobin 29.6 pg (28.0-34.0); Mean Platelet Volume 9.1 fL (7.4-10.4); Monocytes # 0.5 10^3/uL (0.2-0.9); Monocytes % 6.2 %; Neutrophils # 6.42 10^3/uL (1.8-7.7); Neutrophils % 73.9 %; Nucleated Red Blood Cells % 0 %; Platelet Count 91 10^3/cmm (130-400); Red Blood Count 3.11 10^6/uL (4.1-5.3); Red Cell Distribution Width 12.7 % (12.1-15.1); White Blood Count 8.7 10^3/uL (4.0-10.0)
[2023-01-28 04:46] LABS: Alanine Aminotransferase < 5 U/L (0-33); Albumin Level 2.2 g/dL (3.5-5.2); Alkaline Phosphatase 60 U/L (35-105); Anion Gap 8.6 (5-19); Aspartate Amino Transferase 9 U/L (0-32); Blood Urea Nitrogen 3 mg/dL (8-23); Calcium 7.4 mg/dL (8.5-10.5); Carbon Dioxide 27 mmol/L (22-29); Chloride 104 mmol/L (98-107); Globulin 1.5 g/dL (1.3-4.6); Glucose 130 mg/dL (65-115); Osmolality Calculated 280 mOsm/kg (285-295); Potassium 3.6 mmol/L (3.5-5.1); Sodium 136 mmol/L (136-145); Total Bilirubin 0.6 mg/dL (0.15-1.2); Total Protein 3.7 g/dL (6.6-8.7)
[2023-01-28] MEDS: pantoprazole 40 mg SDV IVP ×2 (05:57→17:54)
[2023-01-28] MEDS: dextrose 5% + KCl 20 mEq 20 MEQ/1,000 ML BAG 100 MEQ IV (05:58)
--- NOTE | 2023-01-28 08:48 | PM.PN ---
Subjective Subjective: Patient seen and examined. Still having significant abdominal pain without emesis or bowel movement yet. Still n.p.o. Vitals/I&O/Wt Last Vital Signs Temp 99.1 F 01/27/23 23:33 Pulse 62 01/28/23 05:03 Resp 17 01/28/23 05:03 BP 124/73 01/28/23 05:03 Pulse Ox 98 01/28/23 05:03 O2 Del Method Room Air 01/27/23 23:33 O2 Flow Rate 3 01/27/23 05:10 01/27/23 01/28/23 01/28/23 22:59 06:59 14:59 Intake Total 1253.333 / 2253.333 986.667 / 3240.000 Output Total 745 / 745 550 / 1295 Balance 508.333 / 1508.333 436.667 / 1945.000 Physical Exam Narrative: General: No acute distress, oriented only to self Abdomen: Soft, tender to palpation left lower quadrant, nondistended, no guarding or rebound Urinary Catheter Management: Egan: Cath Placed During This Visit: yes Reason for Continuing Indwelling Catheter: Accurate Measurement of Urinary Output in Critically Ill Patients Urinary Catheter Date of Insertion: 01/24/23 Urinary Catheter Time of Insertion: 19:00 Data 01/28/23 03:14 01/28/23 03:14 Micro: Microbiology 01/26/23 15:06 Blood Culture - Preliminary Blood NEGATIVE TO DATE 01/26/23 15:00 Blood Culture - Preliminary Blood NEGATIVE TO DATE A&P Assessment and plan (1) Diverticulitis of colon with perforation: Plan Recommend continuing n.p.o. status and starting clears tomorrow regardless of patient's condition-for her comfort Continue medical management. The family has decided against surgery and made her DNR, DNI and they do not want any vasopressors used. She does however continue to improve as far as her fever curve and leukocytosis. Medical management per hospitalist Attestations Medical Necessity Statement*: Per primary Coding Level of Care Code Acute Code for [facility] Diagnoses Diverticulitis of colon with perforation K57.20
[2023-01-28] MEDS: digoxin 250 mcg/ml INJ 2 mL 125 MCG IVP (09:01)
[2023-01-28] MEDS: lanolin oint 7 gm 1 APPLIC TOPICAL (09:24)
--- NOTE | 2023-01-28 10:42 | XRR_ITS ---
PROCEDURE INFORMATION: Exam: XR Chest Exam date and time: 01/28/2023 11:11 AM Age: 77 years old Clinical indication: Cough TECHNIQUE: Imaging protocol: Radiologic exam of the chest. Views: 1 view. COMPARISON: CR XR chest 1V portable [id number] 02/08/2022 6:03 PM FINDINGS: Lungs: There is no consolidation. Pleural spaces: There is no pleural effusion or pneumothorax. Heart/Mediastinum: Cardiomediastinal contours are unremarkable. Bones/joints: Bones are unremarkable. XR/XR chest 1V portable [id number] IMPRESSION: No acute findings.
[2023-01-28] MEDS: vancomycin 750 MG in sodium chloride 0.9% 250 ML 250 MG IV (10:48)
[2023-01-28] MEDS: dextrose 5%-sod chloride 0.45% 1,000 ML 75 ML IV (11:41)
[2023-01-28] MEDS: meropenem 2,000 MG in sodium chloride 0.9% (100 ml) 100 ML 100 MG IV (11:43)
[2023-01-28] MEDS: LORazepam 2 mg/mL INJ 1 mL 0.5 MG IVP (12:13)
--- NOTE | 2023-01-28 14:01 | PM.PN ---
Subjective Subjective: White blood cell count is normalized today. Tmax 99.7 over the last 24 hours. Still has not had a bowel movement. Follow-up vomiting. Developing a cough, likely related to known enterovirus/rhinovirus infection.Platelets at 61K Medications: Reviewed: Yes Vitals/I&O/Wt Last Vital Signs Temp 97.9 F 01/28/23 08:00 Pulse 67 01/28/23 12:51 Resp 18 01/28/23 12:51 BP 156/78 01/28/23 12:51 Pulse Ox 94 01/28/23 12:51 O2 Del Method Room Air 01/28/23 08:00 O2 Flow Rate 3 01/27/23 05:10 01/27/23 01/28/23 01/28/23 22:59 06:59 14:59 Intake Total 1253.333 / 2253.333 986.667 / 3240.000 1000 / 1000 Output Total 745 / 745 550 / 1295 Balance 508.333 / 1508.333 436.667 / 9926.368 5370 / 1000 Physical Exam Narrative: General: No acute distress, AO x1 HEENT: PERRLA, pupils bilaterally equal and reactive, pallors not present Chest: Normal vesicular breath sounds, no added sounds, equal good air entry bilaterally CVS: S1-S2 regular, no murmurs, no tachycardia, no gallops, no rubs Abdomen: Soft, tender LLQ Neuro: No gross focal deficits, no facial deformity, AO x1 Urinary Catheter Management: Egan: Cath Placed During This Visit: yes Reason for Continuing Indwelling Catheter: Accurate Measurement of Urinary Output in Critically Ill Patients Urinary Catheter Date of Insertion: 01/24/23 Urinary Catheter Time of Insertion: 19:00 Data 01/28/23 03:14 01/28/23 03:14 Micro: Microbiology 01/26/23 15:06 Blood Culture - Preliminary Blood NEGATIVE TO DATE 01/26/23 15:00 Blood Culture - Preliminary Blood NEGATIVE TO DATE A&P Assessment and plan (1) Sepsis: As evidenced by leukocytosis, elevated lactate, source of infection by way of perforated diverticulitis with abscess formation. Currently on empiric abx coverage with meropenem and vancomycin leukocytosis resolved. t max 99.7F last 24 hrs, improving fever curve pending blood cx, thus far negative appreciate surgery recommendations Given her multiple comorbidities overall poor functional status, family has elected not to proceed with any surgical interventions. pain control with prn morphine, currently appears to be comfortable. (2) Diverticulitis of colon with perforation: As above (3) Atrial fibrillation: Hr is currently controlled Off cardizem infusion Continue iv beta ema and iv digoxin 125mcg every other day (4) Dementia: At baseline (5) Hypokalemia: now improved (6) Hypernatremia: Now resolved with changing IVF . resume D51/2 NS with KCL today (7) Thrombocytopenia: likelyrelated to sepsis vs acute viral infection with rhinoviurs/enterovirus (8) Enterovirus infection: Likely the cause of cough and URI symptoms today CXR without consolidation or fluid Plan DVT prophylaxis: Lovenox on hold for now given thrombocytopnia, likely related to sepsis, less likely LEILA CODE STATUS: DNR/DNI. Does not want ICU admission or pressor support Attestations Medical Necessity Statement*: improving sepsis, awaiting retrun of bowel function Diagnoses Sepsis A41.9 Diverticulitis of colon with perforation K57.20 Atrial fibrillation I48.91 Dementia F03.90 Hypokalemia E87.6 Hypernatremia E87.0 Thrombocytopenia D69.6 Enterovirus infection B34.1
[2023-01-29] VITALS (12 sets, daily range): BP systolic 107–145; BP diastolic 62–89; PULSE 67–168; RESP 17–25; TEMP 35.4; O2SAT 94–97
[2023-01-29] MEDS: meropenem 2,000 MG in sodium chloride 0.9% (100 ml) 100 ML 100 MG IV ×2 (00:17→13:34)
[2023-01-29] MEDS: LORazepam 2 mg/mL INJ 1 mL 0.5 MG IVP (01:52)
[2023-01-29] MEDS: dextrose 5%-sod chloride 0.45% 1,000 ML 75 ML IV ×2 (01:53→15:20)
[2023-01-29 05:23] LABS: Basophils % 0.5 %; Eosinophils # 0.3 10^3/uL (0.0-0.8); Eosinophils % 4.5 %; Hematocrit 31.5 % (37.0-47.0); Hemoglobin 10.5 g/dL (11.5-15.3); Lymphocytes # 1.8 10^3/uL (0.8-4.8); Lymphocytes % 23.2 %; Mean Corpuscular HGB Conc 33.3 g/dL (30.0-36.0); Mean Corpuscular Hemoglobin 29.4 pg (28.0-34.0); Mean Corpuscular Volume 88.2 fl (81-99); Mean Platelet Volume 9.2 fL (7.4-10.4); Monocytes # 0.6 10^3/uL (0.2-0.9); Monocytes % 8.1 %; Neutrophils # 4.76 10^3/uL (1.8-7.7); Neutrophils % 62.9 %; Nucleated Red Blood Cells % 0 %; Platelet Count 94 10^3/cmm (130-400); Red Blood Count 3.57 10^6/uL (4.1-5.3); Red Cell Distribution Width 12.2 % (12.1-15.1); White Blood Count 7.6 10^3/uL (4.0-10.0)
[2023-01-29 05:44] LABS: Alanine Aminotransferase < 5 U/L (0-33); Albumin Level 1.9 g/dL (3.5-5.2); Alkaline Phosphatase 61 U/L (35-105); Anion Gap 9.4 (5-19); Aspartate Amino Transferase 13 U/L (0-32); Blood Urea Nitrogen 3 mg/dL (8-23); Calcium 7.7 mg/dL (8.5-10.5); Carbon Dioxide 27 mmol/L (22-29); Chloride 101 mmol/L (98-107); Globulin 2.3 g/dL (1.3-4.6); Glucose 129 mg/dL (65-115); Magnesium 1.4 mg/dL (1.7-2.3); Osmolality Calculated 276 mOsm/kg (285-295); Potassium 3.4 mmol/L (3.5-5.1); Sodium 134 mmol/L (136-145); Total Bilirubin 0.5 mg/dL (0.15-1.2); Total Protein 4.2 g/dL (6.6-8.7)
[2023-01-29] MEDS: morphine 4 mg/mL SDV 1 mL 2 MG IVP ×2 (06:16→21:05)
[2023-01-29] MEDS: pantoprazole 40 mg SDV IVP ×2 (06:16→18:22)
--- NOTE | 2023-01-29 09:16 | PC.SOCIAL ---
IMM update IMM updated with patient's at bedside. Verbalized an understanding. Copy pg 2 provided. Initialled, dated, timed, and placed in chart.
--- NOTE | 2023-01-29 09:28 | XRR_ITS ---
PROCEDURE INFORMATION: Exam: XR Abdomen Exam date and time: 01/29/2023 10:30 AM Age: 77 years old Clinical indication: Abdominal tenderness; Additional info: Follow up obstruction, perforated diverticulitis on medical management, assess for TECHNIQUE: Imaging protocol: Radiologic exam of the abdomen. Views: Frontal supine view of the abdomen. 1 View. COMPARISON: CR XR acute abdomen series [id number] 01/26/2023 7:28 AM FINDINGS: Gastrointestinal tract: The colon is mildly diffusely gas distended. Small bowel gas pattern is unremarkable. Intraperitoneal space: No intraperitoneal free air is visible. 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 XR/XR abdomen 1V* [id number] IMPRESSION: No visible free air.
[2023-01-29 10:58] LABS: Thyroid Stimulating Hormone 20.59 uIU/mL (0.27-4.20)
[2023-01-29] MEDS: magnesium sulfate premix 2 GM/50 ML PIGGYBACK IV (11:03)
[2023-01-29 11:14] LABS: Vancomycin Trough 6.1 ug/mL (10-15)
[2023-01-29] MEDS: calcium gluconate 0.9% NaCL 1 GM/50 ML PREMIX IV (11:43)
--- NOTE | 2023-01-29 12:22 | PM.PN ---
Subjective Subjective: leukocytosis remains resolved. She is afebrile for 48 hours now. More lethargic today. X-ray abdomen was repeated, showed nonspecific unremarkable bowel gas pattern. She has been less conversant, less interactive with family. Last dose of morphine was received at 6 AM. Medications: Reviewed: Yes Vitals/I&O/Wt Last Vital Signs Temp 95.7 F L 01/29/23 08:00 Pulse 77 01/29/23 11:55 Resp 17 01/29/23 11:55 BP 145/79 01/29/23 11:55 Pulse Ox 96 01/29/23 11:55 O2 Del Method Room Air 01/29/23 11:55 O2 Flow Rate 3 01/27/23 05:10 01/28/23 01/29/23 01/29/23 22:59 06:59 14:59 Intake Total 0 / 1402 1000 / 2402 Output Total 1050 / 2500 Balance 0 / -48 -50 / -98 Physical Exam Narrative: General: No acute distress, AO x1 HEENT: PERRLA, pupils bilaterally equal and reactive, pallors not present Chest: Normal vesicular breath sounds, no added sounds, equal good air entry bilaterally CVS: S1-S2 regular, no murmurs, no tachycardia, no gallops, no rubs Abdomen: Soft, less distended, tender to palpation Neuro: No gross focal deficits, no facial deformity, AO x1 Urinary Catheter Management: Egan: Cath Placed During This Visit: yes Reason for Continuing Indwelling Catheter: Accurate Measurement of Urinary Output in Critically Ill Patients Urinary Catheter Date of Insertion: 01/24/23 Urinary Catheter Time of Insertion: 19:00 Data 01/29/23 05:04 01/29/23 05:04 Other data: Ordering Provider/Ordering MD: Jordon Cintron MD Date of Service: 01/29/23 Procedure(s): XR abdomen 1V* [id number] Accession Number(s): [id number] Report Number: [id number] PROCEDURE INFORMATION: Exam: XR Abdomen Exam date and time: 01/29/2023 10:30 AM Age: 77 years old Clinical indication: Abdominal tenderness; Additional info: Follow up obstruction, perforated diverticulitis on medical management, assess for TECHNIQUE: Imaging protocol: Radiologic exam of the abdomen. Views: Frontal supine view of the abdomen. 1 View. COMPARISON: CR XR acute abdomen series [id number] 01/26/2023 7:28 AM FINDINGS: Gastrointestinal tract: The colon is mildly diffusely gas distended. Small bowel gas pattern is unremarkable. Intraperitoneal space: No intraperitoneal free air is visible. 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 XR/XR abdomen 1V* 35350 IMPRESSION: No visible free air. A&P Assessment and plan (1) Sepsis: As evidenced by leukocytosis, elevated lactate on admission, source of infection by way of perforated diverticulitis with abscess formation. Currently on empiric abx coverage with meropenem and vancomycin , leukocytosis resolved, afberile now D/c vancomycin today, continue meropenem Blood cx negative thus far appreciate surgery recommendations Given her multiple comorbidities overall poor functional status, family has elected not to proceed with any surgical interventions. Their overall goals are to keep her pain free and continue medical mgmt only. Trial of clear liquid diet today, if tolerates po intake , will switch abx to po ciprofloxacin and flagyl at discharge. If unable to tolerate may need to consider transition to iv ertapenem instead. Patient more lethargic, less inetractive today, Hold prn morphine and ativan today so we can assess her po intake. Check digoxin level Change pain control to iv toradol instead (2) Diverticulitis of colon with perforation: As above (3) Atrial fibrillation: Hr is currently controlled Continue iv beta ema and iv digoxin 125mcg every other day. She is not on chronic a/c (4) Dementia: At baseline (5) Hypokalemia: now improved (6) Hypernatremia: Now resolved with changing IVF . (7) Thrombocytopenia: likelyrelated to sepsis vs acute viral infection with rhinoviurs/enterovirus (8) Enterovirus infection: Likely the cause of cough and URI symptoms , these are improving CXR without consolidation or fluid Plan DVT prophylaxis: Lovenox on hold for now given thrombocytopnia, likely related to sepsis, less likely LEILA, will resume if remains stable for 48 hrs CODE STATUS: DNR/DNI. Does not want ICU admission or pressor support dispo: Starting a trial of clear liquid diet today. If patient is able to tolerate p.o. intake anticipate transitioning antibiotics to oral and discharge. is concerned that patient has had a more acute decline over the past month and given her deconditioned state he may not be able to care for her at home adequately. He is contemplating transitioning to SNF, but has not made a final decision yet. Discharge anticipated to be SNF versus home. Attestations Medical Necessity Statement*: trail of clear liquid today, continue iv abx Coding Level of Care Code Acute Code for Chg Fwd Moderate MDM includes number and complexity of problems actively addressed during encounter, amount and/or complexity of data reviewed/ordered and described risk of complication, morbidity or mortality of management as documented Diagnoses Sepsis A41.9 Diverticulitis of colon with perforation K57.20 Atrial fibrillation I48.91 Dementia F03.90 Hypokalemia E87.6 Hypernatremia E87.0 Thrombocytopenia D69.6 Enterovirus infection B34.1
[2023-01-29 13:23] LABS: Digoxin 0.7 ng/mL (0.6-1.2)
[2023-01-29] MEDS: lidocaine 1% 5 ML in potassium chloride premix 100 ML 26.25 ML IV (13:36)
[2023-01-29 13:47] LABS: Free T4 Free Thyroxine 0.52 ng/dL (0.82-1.77); T3 Free 0.8 PG/ML (2.0-4.4)
[2023-01-29] MEDS: ketorolac 30 mg/mL INJ 15 MG IVP ×2 (15:12→23:12)
--- NOTE | 2023-01-29 15:35 | PC.NURSE ---
Addendum entered by Bekah Branch RN 01/29/23 15:36: Tolerated well. Original Note: Patient has eaten several small bites of applesauce and ice cream this afternoon.
--- NOTE | 2023-01-29 15:37 | PM.PN ---
Subjective Subjective: Patient seen and examined. Having worsening abdominal pain without emesis or bowel movement yet. Still n.p.o. Vitals/I&O/Wt Last Vital Signs Temp 95.7 F L 01/29/23 08:00 Pulse 77 01/29/23 11:55 Resp 17 01/29/23 11:55 BP 145/79 01/29/23 11:55 Pulse Ox 96 01/29/23 11:55 O2 Del Method Room Air 01/29/23 11:55 O2 Flow Rate 3 01/27/23 05:10 01/29/23 01/29/23 01/29/23 06:59 14:59 22:59 Intake Total 1100 / 2502 50 / 50 1150 / 1200 Output Total 1050 / 2500 Balance 50 / 2 50 / 50 1150 / 1200 Physical Exam Narrative: General: No acute distress, oriented only to self Abdomen: Soft, nondistended with diffuse tenderness and some guarding Urinary Catheter Management: Egan: Cath Placed During This Visit: yes Reason for Continuing Indwelling Catheter: Accurate Measurement of Urinary Output in Critically Ill Patients Urinary Catheter Date of Insertion: 01/24/23 Urinary Catheter Time of Insertion: 19:00 Data 01/29/23 05:04 01/29/23 05:04 A&P Assessment and plan (1) Diverticulitis of colon with perforation: Plan Clear liquid diet Continue medical management. The family has decided against surgery and made her DNR, DNI and they do not want any vasopressors used. She does however continue to improve as far as her fever curve and leukocytosis. Medical management per hospitalist Attestations Medical Necessity Statement*: per primary Coding Level of Care Code 09987 Diagnoses Diverticulitis of colon with perforation K57.20
--- NOTE | 2023-01-29 20:35 | ECG_ITS ---
[facility] Test Date: 2023-01-29 Pat Name: Tram Macdonald Department: Room: 103 Gender: Female [employer]: : 1945 Requested By: Martha Duarte Order Number: [id number] Noni MD: Adam Gomez M.D. Measurements Intervals Marine Rate: 158 P: 0 NH: 0 QRS: -82 QRSD: 101 T: 91 QT: 297 QTc: 482 Interpretive Statements ATRIAL FLUTTER WITH RAPID VENTRICULAR RESPONSE LEFT AXIS DEVIATION [QRS AXIS < -30] PATTERN CONSISTENT WITH PULMONARY DISEASE MODERATE ST DEPRESSION [0.05+ mV ST DEPRESSION] ABNORMAL QRS-T ANGLE [QRS-T AXIS DIFFERENCE > 60] CRITICAL TEST RESULT Compared to ECG 12/28/2022 15:22:05 ST (T wave) deviation now present Sinus rhythm no longer present Myocardial infarct finding no longer present Electronically Signed On 01-30-2023 9:55:30 CDT by Adam Gomez M.D. [id number]
[2023-01-29] MEDS: dilTIAZem 5 mg/mL SDV 5 mL IVP (21:03)
[2023-01-29] MEDS: metoprolol tartrate 1 mg/1 mL SDV 5 mL 5 MG IVP (21:27)
[2023-01-29] MEDS: sodium chloride 0.9% 500 ML IV (21:29)
[2023-01-29] MEDS: dilTIAZem 100 MG in sodium chloride 0.9% (add-van) 100 ML IV (22:25)
[2023-01-30] VITALS (11 sets, daily range): BP systolic 114–166; BP diastolic 61–91; PULSE 64–88; RESP 20–29; TEMP 37–37.9; O2SAT 95–98
[2023-01-30] MEDS: meropenem 2,000 MG in sodium chloride 0.9% (100 ml) 100 ML 100 MG IV ×2 (00:29→11:40)
[2023-01-30] MEDS: morphine 4 mg/mL SDV 1 mL 2 MG IVP (04:21)
[2023-01-30 05:38] LABS: Basophils # 0.1 10^3/uL (0.0-0.1); Basophils % 0.6 %; Eosinophils # 0.4 10^3/uL (0.0-0.8); Eosinophils % 5.2 %; Hematocrit 31.9 % (37.0-47.0); Hemoglobin 10.6 g/dL (11.5-15.3); Lymphocytes # 1.8 10^3/uL (0.8-4.8); Lymphocytes % 22.4 %; Mean Corpuscular HGB Conc 33.2 g/dL (30.0-36.0); Mean Corpuscular Hemoglobin 29.2 pg (28.0-34.0); Mean Corpuscular Volume 87.9 fl (81-99); Mean Platelet Volume 9.3 fL (7.4-10.4); Monocytes # 0.7 10^3/uL (0.2-0.9); Monocytes % 8.9 %; Neutrophils # 5.01 10^3/uL (1.8-7.7); Neutrophils % 61.7 %; Nucleated Red Blood Cells % 0 %; Platelet Count 117 10^3/cmm (130-400); Red Blood Count 3.63 10^6/uL (4.1-5.3); Red Cell Distribution Width 12.4 % (12.1-15.1); White Blood Count 8.1 10^3/uL (4.0-10.0)
[2023-01-30 06:20] LABS: Alanine Aminotransferase 8 U/L (0-33); Albumin Level 1.9 g/dL (3.5-5.2); Alkaline Phosphatase 58 U/L (35-105); Aspartate Amino Transferase 18 U/L (0-32); Blood Urea Nitrogen 4 mg/dL (8-23); Calcium 7.8 mg/dL (8.5-10.5); Carbon Dioxide 24 mmol/L (22-29); Chloride 105 mmol/L (98-107); Globulin 2.3 g/dL (1.3-4.6); Glucose 115 mg/dL (65-115); Magnesium 1.8 mg/dL (1.7-2.3); Osmolality Calculated 280 mOsm/kg (285-295); Sodium 136 mmol/L (136-145); Total Bilirubin 0.4 mg/dL (0.15-1.2); Total Protein 4.2 g/dL (6.6-8.7)
[2023-01-30 06:22] LABS: Anion Gap 10.8 (5-19); Potassium 3.8 mmol/L (3.5-5.1)
[2023-01-30] MEDS: pantoprazole 40 mg SDV IVP (06:41)
[2023-01-30] MEDS: dextrose 5%-sod chloride 0.45% 1,000 ML 75 ML IV (07:11)
[2023-01-30] MEDS: digoxin 250 mcg/ml INJ 2 mL 125 MCG IVP (09:07)
[2023-01-30] MEDS: ketorolac 30 mg/mL INJ 15 MG IVP ×2 (11:39→22:36)
--- NOTE | 2023-01-30 13:02 | P.PN_ITS ---
Subjective Subjective: at bedside provides history. He provides a brief review of systems. States that she was hurting earlier he suspects in the belly. Currently she states she is doing rather all right. Does not have much appetite. Tried small mount of clears earlier. Vitals/I&O/Wt Last Vital Signs Temp 98.6 F 01/30/23 07:33 Pulse 79 01/30/23 11:42 Resp 24 H 01/30/23 11:42 BP 157/87 01/30/23 11:42 Pulse Ox 98 01/30/23 11:42 O2 Del Method Room Air 01/30/23 11:42 O2 Flow Rate 3 01/27/23 05:10 01/29/23 01/30/23 01/30/23 22:59 06:59 14:59 Intake Total 1150 / 1200 1004.333 / 2204.333 705 / 705 Output Total 1190 / 1190 200 / 1390 Balance -40 / 10 804.333 / 814.333 705 / 705 Physical Exam Const: COMMON NORMALS: patient oriented x3 and alert GENERAL APPEARANCE: cooperative and frail appearing ORIENTATION/CONSCIOUSNESS: Yes awake HENMT: COMMON NORMALS: oropharynx normal Neck/C-Spine: COMMON NORMALS: no JVD Resp: COMMON NORMALS: normal respiratory effort and clear to auscultation bilaterally AUSCULTATION: clear to auscultation bilaterally Cardio: COMMON NORMALS: no JVD, regular rhythm, S1 normal heart sound present, S2 normal heart sound present and No murmurs present (Cardio) RHYTHM: regular rhythm HEART SOUNDS: S1 normal heart sound present and S2 normal heart sound present GI: COMMON NORMALS: Soft to palpation AUSCULTATION: Yes Hypoactive bowel sounds present PALPATION: Yes Soft to palpation Extremity: COMMON NORMALS: no joint enlargement and no pedal edema Neuro: COMMON NORMALS: patient oriented x3 and moves all extremities SENSORIUM/ORIENTATION: Yes alert Skin: COMMON NORMALS: no rashes or lesions noted GENERAL SKIN EXAM: no rashes or lesions noted Urinary Catheter Management: Egan: Cath Placed During This Visit: yes Reason for Continuing Indwelling Catheter: Accurate Measurement of Urinary Output in Critically Ill Patients Urinary Catheter Date of Insertion: 01/24/23 Urinary Catheter Time of Insertion: 19:00 Data 01/30/23 04:47 08/14/23 04:47 A&P Assessment and plan (1) Diverticulitis of colon with perforation: Appreciated prior hospitalist and surgery documentation. Continue empiric antibiotic coverage. Discussed with and case management, pending arrangements for continued care at SNF. Overall prognosis is guarded. Generally weak. Functional decline. Appears to still have some on and off abdominal discomfort. Trial of clears. Sepsis appears to have resolved. Continue meropenem Pain control IV Toradol as needed, morphine as needed. Required IV morphine this morning. Discussed with depending on goals of care, consideration may be given to oral morphine. (2) Sepsis: Does not Resolved sepsis. Secondary to complicated diverticulitis. WBC noted 8.1. Neutrophils WNL. Afebrile. Follow-up CBC. Noted thrombocytopenia 117. Improved from 94. As evidenced by leukocytosis, elevated lactate on admission, source of infection by way of perforated diverticulitis with abscess formation. Blood cx negative thus far appreciate surgery recommendations Given her multiple comorbidities overall poor functional status, family has elected not to proceed with any surgical interventions. Their overall goals are to keep her pain free and continue medical mgmt only. (3) Atrial fibrillation: Digoxin level noted 0.7. Hr is currently controlled Continue iv beta ema and iv digoxin 125mcg every other day. She is not on chronic a/c (4) Dementia: At baseline (5) Hypokalemia: now improved. Potassium noted 3.8. Magnesium 1.8, will give a gram of magnesium. Follow-up chemistry, magnesium. (6) Hypernatremia: Now resolved (7) Thrombocytopenia: Improving. Platelets up to 117. Likelyrelated to sepsis vs acute viral infection with rhinoviurs/enterovirus (8) Enterovirus infection: Likely the cause of cough and URI symptoms , these are improving CXR without consolidation or fluid Plan DVT prophylaxis: Lovenox on hold for now given thrombocytopnia, likely related to sepsis, less likely LEILA, will resume if remains stable for 48 hrs CODE STATUS: DNR/DNI. Does not want ICU admission or pressor support Attestations Medical Necessity Statement*: Continue admission for assessment management of complicated diverticulitis, post discharge planning and arrangements. Diagnoses Diverticulitis of colon with perforation K57.20 Sepsis A41.9 Atrial fibrillation I48.91 Dementia F03.90 Hypokalemia E87.6 Hypernatremia E87.0 Thrombocytopenia D69.6 Enterovirus infection B34.1
[2023-01-31] VITALS (9 sets, daily range): BP systolic 150–169; BP diastolic 75–93; PULSE 55–79; RESP 18–26; TEMP 36.6–37.1; O2SAT 98–100
[2023-01-31] MEDS: meropenem 2,000 MG in sodium chloride 0.9% (100 ml) 100 ML 100 MG IV ×3 (00:59→23:17)
[2023-01-31] MEDS: dextrose 5%-sod chloride 0.45% 1,000 ML 75 ML IV ×2 (04:08→23:17)
[2023-01-31 04:35] LABS: Basophils % 0.2 %; Eosinophils # 0.4 10^3/uL (0.0-0.8); Eosinophils % 4.6 %; Hematocrit 33.6 % (37.0-47.0); Hemoglobin 11.2 g/dL (11.5-15.3); Lymphocytes # 1.8 10^3/uL (0.8-4.8); Lymphocytes % 22.2 %; Mean Corpuscular HGB Conc 33.3 g/dL (30.0-36.0); Mean Corpuscular Hemoglobin 29.2 pg (28.0-34.0); Mean Corpuscular Volume 87.5 fl (81-99); Mean Platelet Volume 9.1 fL (7.4-10.4); Monocytes # 0.6 10^3/uL (0.2-0.9); Monocytes % 7.1 %; Neutrophils # 5.34 10^3/uL (1.8-7.7); Nucleated Red Blood Cells % 0 %; Platelet Count 177 10^3/cmm (130-400); Red Blood Count 3.84 10^6/uL (4.1-5.3); Red Cell Distribution Width 12.4 % (12.1-15.1); White Blood Count 8.2 10^3/uL (4.0-10.0)
[2023-01-31 04:56] LABS: Magnesium 2.2 mg/dL (1.7-2.3)
[2023-01-31 05:00] LABS: Anion Gap 10.4 (5-19); Blood Urea Nitrogen 5 mg/dL (8-23); Carbon Dioxide 25 mmol/L (22-29); Chloride 101 mmol/L (98-107); Glucose 115 mg/dL (65-115); Osmolality Calculated 274 mOsm/kg (285-295); Potassium 3.4 mmol/L (3.5-5.1); Sodium 133 mmol/L (136-145)
[2023-01-31] MEDS: pantoprazole 40 mg SDV IVP ×2 (06:17→17:24)
--- NOTE | 2023-01-31 08:44 | PC.SOCIAL ---
IMM Update pg 2 of IMM updated and reviewed w/ patients . Copy provided and Copy in chart dated, and initialed.
[2023-01-31] MEDS: levothyroxine 125 mcg Tablet PO (10:03)
[2023-01-31] MEDS: lidocaine 1% 5 ML in potassium chloride premix 100 ML 52.5 ML IV (10:57)
--- NOTE | 2023-01-31 11:30 | PC.NURSE ---
Midline placed to right basilic vein. Consulted for midline placement for IV anitibiotics x 10 days. Informed consent obtained from patient as well as risks and benefits discussed with and family. Right arm assessed with basilic vein noted to be 4 mm, straight, and apparent best choice for placement. Using sterile technique and MST, basilic vein accessed x 1 stick. Mid-arm circumference measured 10 cm from right AC 25 cm. Trimmed cath length 10 cm with 0 cm external length noted. Line secured with stat-lock. Insertion site covered with Biopatch and TSM. Report given to bedside nurseMinna.
--- NOTE | 2023-01-31 12:16 | P.PN_ITS ---
Subjective Subjective: She reports she is feeling better. Not in pain currently. Has been tolerating clear liquids. Had a bowel movement. Vitals/I&O/Wt Last Vital Signs Temp 98.8 F 01/31/23 08:00 Pulse 71 01/31/23 08:00 Resp 22 H 01/31/23 08:00 BP 169/86 01/31/23 08:00 Pulse Ox 99 01/31/23 08:00 O2 Del Method Room Air 01/31/23 08:00 O2 Flow Rate 3 01/27/23 05:10 01/30/23 01/31/23 01/31/23 22:59 06:59 14:59 Intake Total 0 / 857 1100 / 1957 Output Total 1100 / 1100 1150 / 2250 Balance -1100 / -243 -50 / -293 Physical Exam Narrative: Accompanied by her family including her , sister and [id number] Const: COMMON NORMALS: patient oriented x3 and alert GENERAL APPEARANCE: cooperative and frail appearing ORIENTATION/CONSCIOUSNESS: Yes awake OTHER: Today she is more alert, more interactive, appears in better spirits, smiles. HENMT: COMMON NORMALS: oropharynx normal Neck/C-Spine: COMMON NORMALS: no JVD Resp: COMMON NORMALS: normal respiratory effort and clear to auscultation bilaterally AUSCULTATION: clear to auscultation bilaterally Cardio: COMMON NORMALS: no JVD, regular rhythm, S1 normal heart sound present, S2 normal heart sound present and No murmurs present (Cardio) RHYTHM: regular rhythm HEART SOUNDS: S1 normal heart sound present and S2 normal heart sound present GI: COMMON NORMALS: Soft to palpation AUSCULTATION: Yes Hypoactive bowel sounds present PALPATION: Yes Soft to palpation Extremity: COMMON NORMALS: no joint enlargement and no pedal edema Neuro: COMMON NORMALS: patient oriented x3 and moves all extremities SENSORIUM/ORIENTATION: Yes alert Skin: COMMON NORMALS: no rashes or lesions noted GENERAL SKIN EXAM: no rashes or lesions noted Urinary Catheter Management: Egan: Cath Placed During This Visit: yes Reason for Continuing Indwelling Catheter: Accurate Measurement of Urinary Output in Critically Ill Patients Urinary Catheter Date of Insertion: 01/24/23 Urinary Catheter Time of Insertion: 19:00 Data 01/31/23 04:09 01/31/23 04:09 A&P Assessment and plan (1) Diverticulitis of colon with perforation: She has generally been weak, unable to take whole pills. Medication crushed. Continue trial of oral intake. We will try to transition to oral medications with digoxin, monitor heart rate. Unable to take her propafenone at this time. We will add low-dose metoprolol. For continued IV antibiotics obtain midline catheter. Tentative discharge plan for tomorrow. Discussed with case management. Continue meropenem Pain control IV Toradol as needed, morphine as needed. Required IV morphine this morning. Discussed with depending on goals of care, consideration may be given to oral morphine. (2) Atrial fibrillation: Continue digoxin, attempt to switch to oral. Unable to take propafenone at this time. We will add low-dose metoprolol. Digoxin level noted 0.7. Hr is currently controlled She is not on chronic a/c (3) Sepsis: Resolved sepsis with noted normal WBC and neutrophils, no fever. Secondary to complicated diverticulitis. Thrombocytopenia suspected sepsis related appears to be improving. Platelets up to 177. As evidenced by leukocytosis, elevated lactate on admission, source of infection by way of perforated diverticulitis with abscess formation. Blood cx negative thus far appreciate surgery recommendations Given her multiple comorbidities overall poor functional status, family has elected not to proceed with any surgical interventions. Their overall goals are to keep her pain free and continue medical mgmt only. (4) Dementia: At baseline (5) Hypokalemia: Mild hypokalemia, potassium 2.4. Requested replacement. Magnesium noted 2.2. Follow-up chemistry (6) Hypernatremia: Now resolved (7) Thrombocytopenia: Improving. Up to 177 Likelyrelated to sepsis vs acute viral infection with rhinoviurs/enterovirus (8) Enterovirus infection: Now resolving Likely the cause of cough and URI symptoms CXR without consolidation or fluid Plan DVT prophylaxis: Lovenox on hold for now given thrombocytopnia, likely related to sepsis, less likely LEILA, will resume if remains stable for 48 hrs CODE STATUS: DNR/DNI. Does not want ICU admission or pressor support Attestations Medical Necessity Statement*: Continue hospitalization for treatment of complicated diverticulitis, preparation for completion of antibiotic course, transition of cardiac medications to oral, preparations for discharge. Diagnoses Diverticulitis of colon with perforation K57.20 Atrial fibrillation I48.91 Sepsis A41.9 Dementia F03.90 Hypokalemia E87.6 Hypernatremia E87.0 Thrombocytopenia D69.6 Enterovirus infection B34.1
[2023-01-31] MEDS: propafenone 150 mg Tablet PO ×2 (17:24→23:17)
[2023-01-31] MEDS: metoprolol tartrate 25 mg Tablet 12.5 MG PO (17:24)
--- NOTE | 2023-01-31 20:41 | PC.NURSE ---
Dr. Burt notified that family member at bedside is asking patient for something to help her sleep. Patient's Ativan is currently on hold. Ativan 0.5 mg PO x1 ordered. Dr. Burt notified that Rythmol is ordered TID. Patient received her first dose at 17:24. Next dose is due at 21:00. Ordered to re-time this dose to 23:00.
[2023-01-31] MEDS: ketorolac 30 mg/mL INJ 15 MG IVP (20:48)
[2023-01-31] MEDS: LORazepam 0.5 mg Tablet PO (20:48)
[2023-02-01 03:36] LABS: Basophils # 0.1 10^3/uL (0.0-0.1); Basophils % 0.6 %; Eosinophils # 0.5 10^3/uL (0.0-0.8); Eosinophils % 6.2 %; Hematocrit 28.2 % (37.0-47.0); Hemoglobin 9.4 g/dL (11.5-15.3); Lymphocytes # 1.7 10^3/uL (0.8-4.8); Mean Corpuscular HGB Conc 33.3 g/dL (30.0-36.0); Mean Corpuscular Hemoglobin 29.4 pg (28.0-34.0); Mean Corpuscular Volume 88.1 fl (81-99); Mean Platelet Volume 8.9 fL (7.4-10.4); Monocytes # 0.6 10^3/uL (0.2-0.9); Monocytes % 7.8 %; Neutrophils # 5.18 10^3/uL (1.8-7.7); Neutrophils % 63.8 %; Nucleated Red Blood Cells % 0 %; Platelet Count 200 10^3/cmm (130-400); Red Cell Distribution Width 12.5 % (12.1-15.1); White Blood Count 8.1 10^3/uL (4.0-10.0)
[2023-02-01 04:00] VITALS: BP 134/71; PULSE 58; RESP 17; O2SAT 99
[2023-02-01 04:03] LABS: Anion Gap 9.7 (5-19); Blood Urea Nitrogen 4 mg/dL (8-23); Calcium 7.8 mg/dL (8.5-10.5); Carbon Dioxide 25 mmol/L (22-29); Chloride 106 mmol/L (98-107); Glucose 125 mg/dL (65-115); Osmolality Calculated 282 mOsm/kg (285-295); Potassium 3.7 mmol/L (3.5-5.1); Sodium 137 mmol/L (136-145)
--- NOTE | 2023-02-01 04:38 | PC.NURSE ---
SUPERVISOR REMELT emptied clark, but states she cannot remember the amount. Unable to chart urine output for shift.
[2023-02-01 05:13] VITALS: PULSE 58
[2023-02-01] MEDS: pantoprazole 40 mg SDV IVP (06:08)
[2023-02-01] MEDS: levothyroxine 125 mcg Tablet PO (06:08)
[2023-02-01 07:48] VITALS: BP 145/78; PULSE 58; RESP 23; O2SAT 98
[2023-02-01 07:49] VITALS: TEMP 36.6
[2023-02-01] MEDS: metoprolol tartrate 25 mg Tablet 12.5 MG PO (08:05)
[2023-02-01] MEDS: propafenone 150 mg Tablet PO ×2 (08:07→15:49)
[2023-02-01 09:29] LABS: Adenovirus Not Detected (NOT DETECT); Chlamydia Pneumoniae Not Detected (NOT DETECT); Coronavirus 229E,HKU1,NL63,OC4 Not Detected (NOT DETECT); Human Metapneumovirus Not Detected (NOT DETECT); Human Rhinovirus/Enterovirus Not Detected (NOT DETECT); Influenza A Not Detected (NOT DETECT); Influenza A H1 Not Detected (NOT DETECT); Influenza A H1-2009 Not Detected (NOT DETECT); Influenza A H3 Not Detected (NOT DETECT); Influenza B Not Detected (NOT DETECT); Mycoplasma Pneumoniae Not Detected (NOT DETECT); Parainfluenza Virus Type 1 Not Detected (NOT DETECT); Parainfluenza Virus Type 2 Not Detected (NOT DETECT); Parainfluenza Virus Type 3 Not Detected (NOT DETECT); Parainfluenza Virus Type 4 Not Detected (NOT DETECT); Respiratory Syncytial Virus A Not Detected (NOT DETECT); Respiratory Syncytial Virus B Not Detected (NOT DETECT); SARS-COV-2 Not Detected (NOT DETECT)
[2023-02-01] MEDS: ertapenem 1,000 MG in sodium chloride 0.9% (plus) 100 ML 200 MG IV (11:04)
[2023-02-01 12:00] VITALS: BP 126/52; PULSE 72; RESP 18; TEMP 36.6; O2SAT 92
[2023-02-01 12:41] VITALS: PULSE 62; RESP 20; TEMP 36.6; O2SAT 100
--- NOTE | 2023-02-01 12:48 | P.DS_ITS ---
Discharge Providers Date of Admission: 01/24/23 20:08 Date of Discharge: February 01, 2023 Attending Provider at Admission: Jacqui Cintron MD Attending Provider at Discharge: Mati Castillo Primary Care Provider: Kelly Matias APN Diagnoses at Discharge Discharge Diagnosis (1) Diverticulitis of colon with perforation: Status: Acute (2) Atrial fibrillation: Status: Acute (3) Sepsis: Status: Acute (4) Dementia: Status: Acute (5) Hypokalemia: Status: Acute (6) Hypernatremia: Status: Acute (7) Thrombocytopenia: Status: Acute (8) Enterovirus infection: Status: Acute Reason for Visit Reason for Visit: n/v ab pain Hospital Course Hospital Course Very pleasant 77-year-old lady with history of Alzheimer's dementia, atrial fibrillation, COPD, HTN, pacemaker, other comorbidities, was admitted for assessment management after presenting due to abdominal pain, CT scan with finding of complicated perforated sigmoid diverticulitis with complex collectio n, appears to be contained, was started antibiotic treatment, seen by surgery, however, on discussion of treatment options, with limited goals of care, decision was made not to pursue any kind of invasive intervention, continue antibiotic therapy, supportive care to recovery versus transition to comfort measures in case of progressive worsening. Additionally with finding of enteroviral infection. Her condition gradually improved. Leukocytosis resolved, fevers improved. She tolerated clear liquid oral intake challenge, had a bowel movement. Pain has so far resolved. She will proceed to skilled encephali to complete additional 10 days of IV antibiotic with ertapenem for which midline catheter was placed as well, she is asked to follow-up with surgery for reassessment. Please remove catheter once she is done with antibiotics. Continue to reassess and revisit goals of care. During hospitalization she had some runs of atrial fibrillation, as she has been weaker than usual has not been able to tolerate pills, has not been able to resume reliably on her propafenone. Continues on digoxin, started on low-dose metoprolol. Please continue to reassess heart rates in her condition, and if able to resume taking pills, consider resumption of propafenone, discontinuation of metoprolol, consider whether he can come off digoxin eventually as well. With moisture injury keep dry, apply moisture barrier, Egan catheter removed at discharge due to risk of UTI, but may be considered depending on goals of care and/or if condition worsens and progressing to hospice. Advance oral intake gradually, please add protein supplements to meals. Thrombocytopenia was noted on hospitalization, suspected secondary to sepsis on presentation and enteroviral infection, platelet level gradually improved back to normal. Received supplementation for hypokalemia. Physical Exam Narrative: Accompanied by and [id number]. Const: COMMON NORMALS: patient oriented x3 and alert GENERAL APPEARANCE: cooperative and frail appearing ORIENTATION/CONSCIOUSNESS: Yes awake OTHER: She is resting. Denies pain or discomfort. HENMT: COMMON NORMALS: oropharynx normal Neck/C-Spine: COMMON NORMALS: no JVD Resp: COMMON NORMALS: normal respiratory effort and clear to auscultation bilaterally AUSCULTATION: clear to auscultation bilaterally Cardio: COMMON NORMALS: no JVD, regular rhythm, S1 normal heart sound present, S2 normal heart sound present and No murmurs present (Cardio) RHYTHM: regular rhythm HEART SOUNDS: S1 normal heart sound present and S2 normal heart sound present GI: COMMON NORMALS: Soft to palpation AUSCULTATION: Yes Hypoactive bowel sounds present PALPATION: Yes Soft to palpation Extremity: COMMON NORMALS: no joint enlargement and no pedal edema Neuro: COMMON NORMALS: patient oriented x3 and moves all extremities SENSORIUM/ORIENTATION: Yes alert Skin: COMMON NORMALS: no rashes or lesions noted GENERAL SKIN EXAM: no rashes or lesions noted Urinary Catheter Management: Egan: Cath Placed During This Visit: yes Reason for Continuing Indwelling Catheter: Other Urinary Catheter Date of Insertion: 01/24/23 Urinary Catheter Time of Insertion: 19:00 Discharge Data Studies Completed and Pending Completed Studies During Hospitalization Category Date Time Status CT abdomen pelvis w con* [id number] Stat Cat Scan 01/24/23 15:23 Completed CXRP [XR chest 1V portable [id number]] Routine Exams 01/28/23 10:42 Completed XR abdomen 1V* [id number] Routine Exams 01/29/23 09:28 Completed XR acute abdomen series [id number] Routine Exams 01/26/23 07:10 Completed Pending at discharge Category Date Time Status Basic Metabolic Panel AM LABS Lab 02/02/23 04:00 Ordered Complete Blood Count w/Auto AM LABS Lab 02/02/23 04:00 Ordered Radiology Impressions Abdomen/Pelvis CT 01/24/23 15:23 IMPRESSION: 1. Sigmoid colonic perforation with adjacent free air and small amount of complex fluid in the pelvis not forming a drainable collection. This is most likely the sequela of acute diverticulitis favored over colitis. No evidence of bowel obstruction. 2. Thickening of the bladder which is likely secondary. Correlate with urinalysis for cystitis. ADDENDUM: 01/24/23 [id number] THIS REPORT CONTAINS FINDINGS THAT MAY BE CRITICAL TO PATIENT CARE. The findings were verbally communicated via telephone conference with BRISA Graff at 5:35 PM CDT on 01/24/2023. The findings were acknowledged and understood. Additional multiple scattered solid noncalcified nodules noticed in the inferior lingula and left lower lobe measuring up to 5 mm maximum size. For patients at low risk (minimal or absent history of smoking and of other known risk factors), no routine follow-up is indicated. For patients at high risk (history of smoking or of other known risk factors), consider optional CT Chest at 12 months. (Reference: Reece) References: Reece Giron, et al. Guidelines for Management of Incidental Pulmonary Nodules Detected on CT Images: From the Fleischner Society 2017. Radiology. 2017;284(1):228-243. Chest X-Ray 01/28/23 10:42 IMPRESSION: No acute findings. Abdomen X-Ray 01/29/23 09:28 IMPRESSION: No visible free air. Laboratory Results WBC 8.1 10^3/uL (4.0-10.0) 02/01/23 03:16 RBC 3.20 10^6/uL (4.1-5.3) L 02/01/23 03:16 Hgb 9.4 g/dL (11.5-15.3) L 02/01/23 03:16 Hct 28.2 % (37.0-47.0) L 02/01/23 03:16 MCV 88.1 fl (81-99) 02/01/23 03:16 MCH 29.4 pg (28.0-34.0) 02/01/23 03:16 MCHC 33.3 g/dL (30.0-36.0) 02/01/23 03:16 RDW 12.5 % (12.1-15.1) 02/01/23 03:16 Plt Count 200 10^3/cmm (130-400) 02/01/23 03:16 MPV 8.9 fL (7.4-10.4) 02/01/23 03:16 Neut % (Auto) 63.8 % 02/01/23 03:16 Lymph % (Auto) 21.0 % 02/01/23 03:16 [place] % (Auto) 7.8 % 02/01/23 03:16 Eos % (Auto) 6.2 % 02/01/23 03:16 Baso % (Auto) 0.6 % 02/01/23 03:16 Neut # (Auto) 5.18 10^3/uL (1.8-7.7) 02/01/23 03:16 Lymph # (Auto) 1.7 10^3/uL (0.8-4.8) 02/01/23 03:16 [place] # (Auto) 0.6 10^3/uL (0.2-0.9) 02/01/23 03:16 Eos # (Auto) 0.5 10^3/uL (0.0-0.8) 02/01/23 03:16 Baso # (Auto) 0.1 10^3/uL (0.0-0.1) 02/01/23 03:16 Nucleated RBC % (auto) 0 % 02/01/23 03:16 Nucleated RBCs # 0.0 /100WBC 02/01/23 03:16 Sodium 137 mmol/L (136-145) 02/01/23 03:16 Potassium 3.7 mmol/L (3.5-5.1) 02/01/23 03:16 Chloride 106 mmol/L (98-107) 02/01/23 03:16 Carbon Dioxide 25 mmol/L (22-29) 02/01/23 03:16 Anion Gap 9.7 (5-19) 02/01/23 03:16 BUN 4 mg/dL (8-23) L 02/01/23 03:16 Creatinine 0.7 mg/dL (0.5-0.9) 02/01/23 03:16 GFR Calculation Not Reportable 02/01/23 03:16 Glucose 125 mg/dL (65-115) H 02/01/23 03:16 Calculated Osmolality 282 mOsm/kg (285-295) L 02/01/23 03:16 Lactic Acid 2.1 mmol/L (0.5-2.2) 01/25/23 09:30 Lactic Acid (Sepsis) 1.6 mmol/L (0.5-2.2) 01/25/23 13:24 Lactate 2.2 mmol/L (0.5-2.2) 01/27/23 03:45 Calcium 7.8 mg/dL (8.5-10.5) L 02/01/23 03:16 Magnesium 2.2 mg/dL (1.7-2.3) 01/31/23 04:09 Total Bilirubin 0.4 mg/dL (0.15-1.2) 01/30/23 04:47 AST 18 U/L (0-32) 01/30/23 04:47 ALT 8 U/L (0-33) 01/30/23 04:47 Alkaline Phosphatase 58 U/L (35-105) 01/30/23 04:47 Total Protein 4.2 g/dL (6.6-8.7) L 01/30/23 04:47 Albumin 1.9 g/dL (3.5-5.2) L 01/30/23 04:47 Globulin 2.3 g/dL (1.3-4.6) 01/30/23 04:47 Lipase 20 U/L (13-60) 01/24/23 15:32 TSH 20.59 uIU/mL (0.27-4.20) H 01/29/23 05:04 Free T4 0.52 ng/dL (0.82-1.77) L 01/29/23 05:04 Free T3 0.8 PG/ML (2.0-4.4) L 01/29/23 05:04 Urine Color Yellow (Yellow) 01/24/23 16:15 Urine Appearance Clear (CLEAR) 01/24/23 16:15 Urine pH 5 (5-7) 01/24/23 16:15 Ur Specific [place] 1.025 (1.005-1.030) 01/24/23 16:15 Urine Protein Trace (Negative) 01/24/23 16:15 Urine Glucose (UA) Norm (Normal) 01/24/23 16:15 Urine Ketones 1+ (Negative) H 01/24/23 16:15 Urine Blood 2+ (Negative) H 01/24/23 16:15 Urine Nitrate Negative (Negative) 01/24/23 16:15 Urine Bilirubin Neg (Negative) 01/24/23 16:15 Urine Urobilinogen Norm mg/dL (Negative) 01/24/23 16:15 Ur Leukocyte Esterase Negative (Negative) 01/24/23 16:15 Urine RBC 10-15 /hpf (0-2) H 01/24/23 16:15 Urine WBC 0-4 /hpf (0-5) H 01/24/23 16:15 Ur Squamous Epith Cells 0-4 /hpf (0-5) H 01/24/23 16:15 Ur Transition Epith Cell 0-4 /hpf 01/24/23 16:15 Amorphous Sediment Not Reportable 01/24/23 16:15 Urine Bacteria Trace /hpf (NONE) 01/24/23 16:15 Hyaline Casts 0-4 /lpf H 01/24/23 16:15 Urine Mucus 2+ /hpf 01/24/23 16:15 Nasal Influ A H1 2009 PCR Not detected (NOT DETECT) 02/01/23 05:30 Vancomycin Trough 6.1 ug/mL (10-15) L 01/29/23 10:26 Digoxin 0.7 ng/mL (0.6-1.2) 01/29/23 05:04 Adenovirus (PCR) Not detected (NOT DETECT) 02/01/23 05:30 C. pneumoniae DNA (PCR) Not detected (NOT DETECT) 02/01/23 05:30 Coronavirus 229E (PCR) Not detected (NOT DETECT) 02/01/23 05:30 Human Metapneumovir PCR Not detected (NOT DETECT) 02/01/23 05:30 Influenza A (H1) PCR Not detected (NOT DETECT) 02/01/23 05:30 Influenza A (H3) PCR Not detected (NOT DETECT) 02/01/23 05:30 Influenza Type A (PCR) Not detected (NOT DETECT) 02/01/23 05:30 Influenza Type B (PCR) Not detected (NOT DETECT) 02/01/23 05:30 M. pneumoniae (PCR) Not detected (NOT DETECT) 02/01/23 05:30 Parainfluenza 1 (PCR) Not detected (NOT DETECT) 02/01/23 05:30 Parainfluenza 2 (PCR) Not detected (NOT DETECT) 02/01/23 05:30 Parainfluenza 3 (PCR) Not detected (NOT DETECT) 02/01/23 05:30 Parainfluenza 4 (PCR) Not detected (NOT DETECT) 02/01/23 05:30 RSV Type A (PCR) Not detected (NOT DETECT) 02/01/23 05:30 RSV Type B (PCR) Not detected (NOT DETECT) 02/01/23 05:30 Entero/Rhino (PCR) Not detected (NOT DETECT) 02/01/23 05:30 SARS-CoV-2 (PCR) Not detected (NOT DETECT) 02/01/23 05:30 SARS-CoV-2 Ag (Rapid) Cancelled 02/01/23 05:42 Blood Type A Positive 01/24/23 18:45 Rho(D) Type Positive 01/24/23 18:45 Antibody Screen Negative 01/24/23 18:45 Vitals Last Vital Signs Temp 97.8 F 02/01/23 12:41 Pulse 62 02/01/23 12:41 Resp 20 H 02/01/23 12:41 BP 145/78 02/01/23 07:48 Pulse Ox 100 02/01/23 12:41 O2 Del Method Room Air 02/01/23 07:48 O2 Flow Rate 3 01/27/23 05:10 Discharge Plan Discharge Patient Disposition: Xfer SNF Condition: Stable Prescriptions: New metoprolol tartrate 25 mg Tablet 12.5 mg PO BID@0900,2100 Qty: 60 0RF ertapenem 1 gram recon soln 1 g IV DAILY 10 Days Qty: 10 0RF Continued digoxin 125 mcg (0.125 mg) tablet 125 mcg PO EVERY OTHER DAY sennosides-docusate sodium [Senna Plus] 8.6-50 mg tablet 1 tab-cap PO BID memantine 10 mg tablet 10 mg PO BID aspirin 81 mg tablet,chewable 81 mg PO EVERY OTHER DAY pantoprazole 40 mg tablet,delayed release (DR/EC) 40 mg PO QAM levothyroxine [Synthroid] 125 mcg tablet 125 mcg PO QAM cyproheptadine 4 mg tablet 4 mg PO QAM rosuvastatin [Crestor] 20 mg tablet 20 mg PO DAILY Qty: 30 0RF Rx Instructions: PTS STATES THE PT NEVER STARTED TAKING 01/24/23 lorazepam 0.5 mg tablet 0.25 - 0.5 mg PO DAILY PRN (Reason: Anxiety) clopidogrel 75 mg tablet 75 mg PO QAM Discontinued propafenone 225 mg capsule,extended release 12 hr 225 mg PO Q12H Qty: 60 6RF nifedipine 30 mg tablet extended release 24hr 30 mg PO QAM cyanocobalamin (vitamin B-12) [Vitamin B-12] 1,000 mcg Tablet 1,000 mcg PO DAILY PRN (Reason: unknown) Discharge Orders: Discharge Order (Routine); Ordered 02/01/23 Ordered By: Mati Castillo Referrals: CARDIOLOGY [Provider Group] - 02/08/23 9:15 am (Atrial fibrillation, episodes of RVR, unable to tolerate propafenone currently, please reassess if can be resumed and metoprolol and/or digoxin stopped) [facility] [Outside] Jim Britton DO [Physician] - 2 weeks (We have notified your physician's clinic of the need for a follow-up appointment to be scheduled. If you have not heard from them within the next 2 business days, please call them directly. You may also reach out to our harvesting manager at [phone] and she can assist you.) Florencio,MIKE Mendoza [Primary Care Provider] - 4-7 days Discharge Diet: Advance as tolerated and Full LIquid Discharge Activity: Increase activity as tolerated Patient Instructions: Ertapenem (By injection), Diverticulitis (GEN), Perforated Bowel (GEN), Opioid Safety Activity Restrictions/Additional Instructions: Continue to advance diet gradually from full liquid as tolerating. Please add protein supplements to meals, [employer] Jell-O, protein shakes. As needed pills crushed. Hopefully this should improve as she gets stronger. Complete 10-day antibiotic course with ertapenem. Follow-up with surgery for reassessment of complicated diverticulitis. Please remove midline catheter after antibiotic course is finished. Due to urinary incontinence, skin redness, please apply moisture barrier twice daily and anytime she is changed. Please follow-up with cardiology for reassessment of atrial fibrillation with episodes of fast heart rate. Discussed with primary provider and cardiology when she may be able to resume propafenone at which point metoprolol and possibly digoxin could be discontinued. Continue to revisit goals of care. Discharge Attestations Time Spent in Discharge Care*: greater than 30 min Quality Metrics Clinical Quality Measures [ No reported AMI, CVA or VTE this stay] Coding Level of Care Code 06274 Total time (in minutes) for Discharge: 45 Diagnoses Diverticulitis of colon with perforation K57.20 Atrial fibrillation I48.91 Sepsis A41.9 Dementia F03.90 Hypokalemia E87.6 Hypernatremia E87.0 Thrombocytopenia D69.6 Enterovirus infection B34.1
--- NOTE | 2023-02-01 16:13 | PC.OT ---
OT TREATMENT ATTEMPTED. PATIENT FAMILY REQUESTS HOLD AT THIS TIME DUE TO PATIENT RESTING. ALSO, PATIENT SCHEDULED FOR DISCHARGE TODAY.
== END 2023-02-01 16:42 | disposition skilled nursing facility (03) | DRG 872 ==
LOC: ER 17:40 → MEDSURG 20:08 → CSU 01-26 01:01
PROVIDERS: Admitting Provider Student in an Organized Health Care Education/Training Program; Emergency Provider Emergency Medicine; PCP Nurse Practitioner Family; Visit Provider Internal Medicine
DX: A41.9 Sepsis, unspecified organism (principal); K57.20 Diverticulitis of large intestine with perforation and abscess without bleeding; E87.0 Hyperosmolality and hypernatremia; G30.9 Alzheimer's disease, unspecified; F02.80 Dementia in other diseases classified elsewhere, unspecified severity, without behavioral disturbance, psychotic disturbance, mood disturbance, and anxiety; I48.91 Unspecified atrial fibrillation; J44.9 Chronic obstructive pulmonary disease, unspecified; I10 Essential (primary) hypertension; Z95.0 Presence of cardiac pacemaker; B97.10 Unspecified enterovirus as the cause of diseases classified elsewhere; D69.59 Other secondary thrombocytopenia; E87.6 Hypokalemia; Z79.82 Long term (current) use of aspirin; Z79.02 Long term (current) use of antithrombotics/antiplatelets; Z66 Do not resuscitate
CPT/HCPCS: 36415; 36573; 51701; 51702; 71045; 74018; 74022; 74177; 80048; 80053; 80162; 80202; 81001; 83605; 83690; 83735; 84439; 84443; 84481; 85025; 86850; 86900; 87040; 87086; 87486; 87581; 87633; 93005; 96365; 96366; 96372; 96375; 96376; 97165; 97535; 99285; C1751; C9113; J0610; J1160; J1335; J1650; J1885; J1980; J2060; J2185; J2270; J2405; J2543; J3370; J3475; J3480; J3490; J7030; J7040; J7042; J7050; J7799; Q9967

== ENCOUNTER 2023-05-29 16:37 | Emergency (ER) | payer OTHER, SELFPAY ==
[2023-05-29 16:42] VITALS: BP 91/55; PULSE 82; RESP 18; TEMP 36.6; O2SAT 96; BMI 15.5
--- NOTE | 2023-05-29 16:54 | XRR_ITS ---
PROCEDURE INFORMATION: Exam: XR Chest Exam date and time: 05/29/2023 5:03 PM Age: 78 years old Clinical indication: Other: Weakness TECHNIQUE: Imaging protocol: Radiologic exam of the chest. Views: 1 view. COMPARISON: CR XR chest 1V portable [id number] 01/28/2023 11:11 AM FINDINGS: Lungs: Localized area of mildly accentuated bronchovascular markings above the right hilum on the current study inconclusive for small right suprahilar infiltrate. Remaining lung lynch are clear. Pleural spaces: Unremarkable. No pleural effusion. No pneumothorax. Heart/Mediastinum: Unremarkable. No cardiomegaly. Bones/joints: Unremarkable for age. XR/XR chest 1V portable [id number] IMPRESSION: Findings inconclusive for small right suprahilar infiltrate which could be better assessed on follow-up PA and lateral chest or CT exam if clinically warranted.
--- NOTE | 2023-05-29 16:56 | ECG_ITS ---
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 Measurements Intervals [place] Rate: 72 P: 74 MI: 147 QRS: -81 QRSD: 134 T: 77 QT: 416 QTc: 455 Interpretive Statements SINUS RHYTHM LEFT AXIS DEVIATION [QRS AXIS < -30] RIGHT BUNDLE BRANCH BLOCK [120+ ms QRS DURATION, UPRIGHT V1, 40+ ms S IN I/aVL/V4/V5/V6] MODERATE VOLTAGE CRITERIA FOR LVH, CONSIDER NORMAL VARIANT [MEETS CRITERIA IN ONE OF: R(aVL), S(V1), R(V5), R(V5/V6)+S(V1)] POSSIBLE SEPTAL MYOCARDIAL INFARCTION , OF INDETERMINATE AGE [30 ms Q WAVE IN V1/V2] Compared to ECG 01/29/2023 20:35:20 Right bundle-branch block now present Myocardial infarct finding now present Atrial flutter no longer present ST (T wave) deviation no longer present Electronically Signed On 05-30-2023 8:16:40 FACTORY MACHINE COMPUTER OPERATOR by Reginaldo Acuña M.D. [email or web address]
--- NOTE | 2023-05-29 16:59 | W.ED.GENADLT ---
HPI - General Adult General: Chief complaint: General Medical Stated complaint: pt states low bp Time Seen by Provider: 05/29/23 16:54 Source: patient and family Mode of arrival: ambulatory Limitations: no limitations History of Present Illness: 78-year-old female has a history of Alzheimer's patient is here with stating that she has had some increased fatigue and he checked her blood pressure today and it was in the 90s at home. Here in the room currently its 108/59. States that she has not been drinking much and feels that she may be dehydrated she is on metoprolol at home as well. She denies any pain she is at her baseline she is able to tell me her name. Associated symptoms: Deny chest pain, dyspnea, headache(s), nausea, rash or vomiting Review of Systems Const: Reports: fatigue; Denies: fever(s) or chills Eyes: Denies: blurry vision or eye discomfort ENMT: Denies: throat pain or dental pain Card: Denies: chest pain Resp: Denies: dyspnea GI: Denies: abdominal pain, nausea, vomiting or diarrhea : Denies: dysuria Musc: Denies: neck pain or back pain Skin/Breast: Denies: rash Neuro: Denies: headache(s) PFSH ED PFSH: Medical History Alzheimer's dementia Atrial fibrillation COPD (chronic obstructive pulmonary disease) Fracture, intertrochanteric, right femur Hypertension Surgical History History of permanent cardiac pacemaker placement Social History Smoking and tobacco/nicotine status: never used tobacco/nicotine Alcohol intake: never Substance/Drug Use: never Physical Exam Const: COMMON NORMALS: alert; negative for patient oriented x3 GENERAL APPEARANCE: frail appearing ORIENTATION/CONSCIOUSNESS: Yes oriented to person; not oriented to place and not oriented to time HENMT: COMMON NORMALS: normocephalic and atraumatic HEAD & SCALP: normocephalic and atraumatic Eye: COMMON NORMALS: Equal, round and reactive pupils present and EOMs intact bilaterally PUPIL: Yes Equal, round and reactive pupils present Neck/C-Spine: COMMON NORMALS: full ROM and supple Chest: COMMONS NORMALS: normal inspection of the chest and normal palpation of entire chest wall Resp: COMMON NORMALS: normal respiratory effort, No retractions, No use of accessory muscles and clear to auscultation bilaterally AUSCULTATION: clear to auscultation bilaterally Cardio: COMMON NORMALS: regular rate, regular rhythm and No murmurs present (Cardio) RATE: regular rate RHYTHM: regular rhythm GI: COMMON NORMALS: Normal to inspection, nondistended, normoactive bowel sounds present, Soft to palpation, non-tender and no masses PALPATION: Yes Soft to palpation Extremity: COMMON NORMALS: normal to inspection and full ROM Neuro: COMMON NORMALS: moves all extremities and no focal motor deficits; negative for patient oriented x3 SENSORIUM/ORIENTATION: Yes alert, Yes oriented to person, No oriented to place and No oriented to time Psych: COMMON NORMALS: mental status grossly normal, Normal thought process present and cooperative THOUGHT PROCESS: Normal thought process present Skin: COMMON NORMALS: no rashes or lesions noted and no wounds GENERAL SKIN EXAM: no rashes or lesions noted Course Vital Signs: Vital signs: Vital Signs Temperature 97.8 F 05/29/23 16:42 Pulse Rate 82 05/29/23 19:07 Respiratory Rate 18 05/29/23 19:07 Blood Pressure 120/68 05/29/23 19:07 Pulse Oximetry 93 05/29/23 19:07 Oxygen Delivery Me thod Room Air 05/29/23 19:07 MDM - General Adult Medical Decision Making Patient presents here with hypotension at home her blood pressure here has been normal blood works normal initial troponin is elevated second 1 went down she had no chest pain her EKG shows no acute findings she is on metoprolol we will have family stop her metoprolol monitor blood pressure and follow-up with her PCP they understand agree to plan. Medical Records I reviewed the patient's medical records. Lab Data I reviewed the patient's lab results. 05/29/23 17:27 05/29/23 17:27 Radiology Impressions Chest X-Ray 05/29/23 16:54 IMPRESSION: Findings inconclusive for small right suprahilar infiltrate which could be better assessed on follow-up PA and lateral chest or CT exam if clinically warranted. Laboratory Results WBC 7.69 10^3/uL (3.29-11.43) 05/29/23 17:27 RBC 4.58 10^6/uL (3.85-5.65) 05/29/23 17: Hgb 13.30 g/dL (11.27-16.99) 05/29/23 17: Hct 40.5 % (36-47) 05/29/23 17: MCV 88.4 fl (85-98) 05/29/23 17: MCH 29.0 pg (27-33) 05/29/23 17: MCHC 32.8 g/dL (30-55) 05/29/23 17: RDW 12.9 % (12.1-15.1) 05/29/23: Plt Count 200 10^3/cmm (157-399) 05/29/23: MPV 8.9 fL (7.4-10.4) 05/29/23 17: Neut % (Auto) 62.7 % 05/29/23 17: Lymph % (Auto) 28.6 % 05/29/23: Sequoyah % (Auto) 6.1 % 05/29/23 17: Eos % (Auto) 1.6 % 05/29/23 17: Baso % (Auto) 0.7 % 05/29/23: Neut # (Auto) 4.83 10^3/uL (1.8-7.7) 05/29/23: Lymph # (Auto) 2.2 10^3/uL (0.8-4.8) 05/29/23: Sequoyah # (Auto) 0.5 10^3/uL (0.2-0.9) 05/29/23 17: Eos # (Auto) 0.1 10^3/uL (0.0-0.8) 05/29/23: Baso # (Auto) 0.1 10^3/uL (0.0-0.1) 05/29/23: Nucleated RBC % (auto) 0 % 05/29/23 17: Nucleated RBCs # 0.0 /100WBC 05/29/23 17: Sodium 137 mmol/L (136-145) 05/29/23 17: Potassium 3.6 mmol/L (3.5-5.1) 05/29/23 17:27 Chloride 96 mmol/L (98-107) L 05/29/23 17:27 Carbon Dioxide 25 mmol/L (22-29) 05/29/23 17:27 Anion Gap 19.6 (5-19) H 05/29/23 17:27 BUN 9 mg/dL (8-23) 05/29/23 17:27 Creatinine 0.8 mg/dL (0.5-0.9) 05/29/23 17:27 GFR Calculation Not Reportable 05/29/23 17:27 Glucose 174 mg/dL (65-115) H 05/29/23 17:27 Calculated Osmolality 287 mOsm/kg (285-295) 05/29/23 17:27 Lactic Acid 1.7 mmol/L (0.5-2.2) 05/29/23 17:27 Calcium 9.3 mg/dL (8.5-10.5) 05/29/23 17:27 Magnesium 1.7 mg/dL (1.7-2.3) 05/29/23 17:27 Total Bilirubin 0.7 mg/dL (0.15-1.2) 05/29/23 17:27 AST 14 U/L (0-32) 05/29/23 17:27 ALT 8 U/L (0-33) 05/29/23 17:27 Alkaline Phosphatase 95 U/L (35-105) 05/29/23 17:27 Troponin T Baseline 161 ng/L (0-10) H* 05/29/23 17:27 Troponin T 120 Minute 147.4 ng/L (0-10) H 05/29/23 19:01 Delta Troponin T -13.6 ABS# (0-10) L 05/29/23 19:01 Total Protein 6.5 g/dL (6.6-8.7) L 05/29/23 17:27 Albumin 3.9 g/dL (3.5-5.2) 05/29/23 17:27 Globulin 2.6 g/dL (1.3-4.6) 05/29/23 17:27 TSH 0.07 uIU/mL (0.27-4.20) L 05/29/23 17:27 Digoxin 0.9 ng/mL (0.6-1.2) 05/29/23 17:27 All radiology interpretation(s) finalized by discharge EKG Data EKG 1: I personally reviewed and interpreted this EKG as follows: EKG interpretation date: 05/29/23 EKG interpretation time: 17:11 Interpretation: nsr [address] elevation qrs 134 qtc 439 Computer generated interpretation: Chest X-Ray 05/29/23 16:54 IMPRESSION: Findings inconclusive for small right suprahilar infiltrate which could be better assessed on follow-up PA and lateral chest or CT exam if clinically warranted. Discharge Plan Discharge Patient Disposition: Home Clinical Impression: Hypotension Qualifiers: Hypotension type: unspecified hypotension type Qualified Code(s): I95.9 - Hypotension, unspecified Condition: Stable Prescriptions: Discontinued metoprolol tartrate 25 mg Tablet 12.5 mg PO BID@0900,2100 Qty: 60 0RF No Action digoxin 125 mcg (0.125 mg) tablet 125 mcg PO EVERY OTHER DAY sennosides-docusate sodium [Senna Plus] 8.6-50 mg tablet 1 tab-cap PO BID memantine 10 mg tablet 10 mg PO BID aspirin 81 mg tablet,chewable 81 mg PO EVERY OTHER DAY pantoprazole 40 mg tablet,delayed release (DR/EC) 40 mg PO QAM levothyroxine [Synthroid] 125 mcg tablet 125 mcg PO QAM cyproheptadine 4 mg tablet 4 mg PO QAM rosuvastatin [Crestor] 20 mg tablet 20 mg PO DAILY Qty: 30 0RF Rx Instructions: PTS STATES THE PT NEVER STARTED TAKING 01/24/23 lorazepam 0.5 mg tablet 0.25 - 0.5 mg PO DAILY PRN (Reason: Anxiety) clopidogrel 75 mg tablet 75 mg PO QAM Discharge Orders: Discharge ED (Routine); Ordered 05/29/23 Ordered By: Kait Norris Referrals: Matias,Kelly, RETAIL BANKING MANAGER [Primary Care Provider] - 1-3 days Discharge Diet: Advance as tolerated Discharge Activity: Resume usual activity Patient Instructions: Hypotension (ED) Coding Level of Care Code ED Mobile Home Technician for Kasey Donaldson
[2023-05-29 17:25] VITALS: BP 109/64; PULSE 68; RESP 18; O2SAT 92
[2023-05-29 17:56] LABS: Basophils # 0.1 10^3/uL (0.0-0.1); Basophils % 0.7 %; Eosinophils # 0.1 10^3/uL (0.0-0.8); Eosinophils % 1.6 %; Hematocrit 40.5 % (36-47); Lymphocytes # 2.2 10^3/uL (0.8-4.8); Lymphocytes % 28.6 %; Mean Corpuscular HGB Conc 32.8 g/dL (30-55); Mean Corpuscular Volume 88.4 fl (85-98); Mean Platelet Volume 8.9 fL (7.4-10.4); Monocytes # 0.5 10^3/uL (0.2-0.9); Monocytes % 6.1 %; Neutrophils # 4.83 10^3/uL (1.8-7.7); Neutrophils % 62.7 %; Nucleated Red Blood Cells % 0 %; Platelet Count 200 10^3/cmm (157-399); Red Blood Count 4.58 10^6/uL (3.85-5.65); Red Cell Distribution Width 12.9 % (12.1-15.1); White Blood Count 7.69 10^3/uL (3.29-11.43)
[2023-05-29 18:16] LABS: Lactic Sepsis W/Reflex 1.7 mmol/L (0.5-2.2)
[2023-05-29 18:31] LABS: Troponin(5th) Baseline 161 ng/L (0-10)
[2023-05-29 18:33] LABS: Alanine Aminotransferase 8 U/L (0-33); Albumin Level 3.9 g/dL (3.5-5.2); Alkaline Phosphatase 95 U/L (35-105); Anion Gap 19.6 (5-19); Aspartate Amino Transferase 14 U/L (0-32); Blood Urea Nitrogen 9 mg/dL (8-23); Calcium 9.3 mg/dL (8.5-10.5); Carbon Dioxide 25 mmol/L (22-29); Chloride 96 mmol/L (98-107); Creatinine Clr Calc Pharmacy 34.7062; Globulin 2.6 g/dL (1.3-4.6); Glucose 174 mg/dL (65-115); Magnesium 1.7 mg/dL (1.7-2.3); Osmolality Calculated 287 mOsm/kg (285-295); Potassium 3.6 mmol/L (3.5-5.1); Sodium 137 mmol/L (136-145); Thyroid Stimulating Hormone 0.07 uIU/mL (0.27-4.20); Total Bilirubin 0.7 mg/dL (0.15-1.2); Total Protein 6.5 g/dL (6.6-8.7)
[2023-05-29 18:37] VITALS: BP 106/72; PULSE 70; RESP 18; O2SAT 94
--- NOTE | 2023-05-29 18:56 | ECG_ITS ---
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 Measurements Intervals [place] Rate: 70 P: 82 ME: 196 QRS: -85 QRSD: 141 T: 91 QT: 439 QTc: 474 Interpretive Statements SINUS RHYTHM POSSIBLE LEFT ATRIAL ENLARGEMENT [-0.1mV P-WAVE IN V1/V2] RIGHT BUNDLE BRANCH BLOCK [120+ ms QRS DURATION, UPRIGHT V1, 40+ ms S IN I/aVL/V4/V5/V6] LEFT ANTERIOR FASCICULAR BLOCK [QRS AXIS <= -45, QR IN I, RS IN II] LEFT VENTRICULAR HYPERTROPHY AND ST-T CHANGE [VOLTAGE CRITERIA PLUS ST/T ABNORMALITY] Compared to ECG 05/29/2023 17:11:05 Left anterior fascicular block now present ST (T wave) deviation now present Left-axis deviation no longer present Myocardial infarct finding no longer present Electronically Signed On 05-30-2023 8:18:02 ELIGIBILITY WORKER by Reginaldo Acuña M.D. [id number]
[2023-05-29 19:07] VITALS: BP 120/68; PULSE 82; RESP 18; O2SAT 93
[2023-05-29 19:17] LABS: Digoxin 0.9 ng/mL (0.6-1.2)
[2023-05-29 19:56] LABS: Troponin 5 2HR Delta -13.6 ABS# (0-10)
[2023-05-29 19:57] LABS: Troponin 5 2HR 147.4 ng/L (0-10)
[2023-05-29 20:25] VITALS: BP 115/64; PULSE 70; RESP 18; O2SAT 97
== END 2023-05-29 20:27 | disposition home or self-care (01) ==
PROVIDERS: Emergency Provider Emergency Medicine; PCP Nurse Practitioner Family
DX: I95.9 Hypotension, unspecified (principal); Z79.02 Long term (current) use of antithrombotics/antiplatelets; Z79.82 Long term (current) use of aspirin; G30.9 Alzheimer's disease, unspecified; F02.80 Dementia in other diseases classified elsewhere, unspecified severity, without behavioral disturbance, psychotic disturbance, mood disturbance, and anxiety; J44.9 Chronic obstructive pulmonary disease, unspecified; I10 Essential (primary) hypertension; Z95.0 Presence of cardiac pacemaker
CPT/HCPCS: 36415; 71045; 80053; 80162; 83605; 83735; 84443; 84484; 85025; 87040; 93005; 99285

== ENCOUNTER 2023-12-22 04:43 | Emergency (ER) | payer OTHER, SELFPAY ==
[2023-12-22 05:00] VITALS: BP 173/85; PULSE 70; RESP 16; TEMP 36.6; O2SAT 95; BMI 16.5
--- NOTE | 2023-12-22 05:15 | W.ED.FALL ---
HPI - Fall General: Chief Complaint: Fall Stated Complaint: fall head lac Time Seen by Provider: 12/22/23 05:14 History of Present Illness: Patient is brought in by EMS with has been at bedside. Patient was sitting in a chair and put too much weight on the right-hand side of it and chair gave way patient fell and hit her head on the Tone on the door. Patient back head is bleeding but bleeding is controlled at this time. Patient is on hospice for Alzheimer's. said patient does not stand and is at her baseline currently. Denies any loss of consciousness. Denies any blood thinner use. Review of Systems General: Reports: 10 or more systems reviewed and unremarkable except in HPI and below PFSH ED PFSH: Medical History Atrial fibrillation Fracture, intertrochanteric, right femur COPD (chronic obstructive pulmonary disease) Hypertension Alzheimer's dementia Surgical History History of permanent cardiac pacemaker placement Social History Smoking and tobacco/nicotine status: never used tobacco/nicotine Alcohol intake: never Substance/Drug Use: never Physical Exam Const: COMMON NORMALS: no acute distress, average body habitus, healthy appearing, alert and well nourished HENMT: COMMON NORMALS: normocephalic, hearing grossly normal bilaterally and external ears normal; head/scalp not atraumatic (Laceration and dried blood posterior scalp region.) HEAD & SCALP: normocephalic; not atraumatic (Laceration and dried blood posterior scalp region.) EXTERNAL EAR: Yes external ears normal Eye: COMMON NORMALS: Equal, round and reactive pupils present, EOMs intact bilaterally, conjunctivae normal and no scleral icterus CONJUNCTIVA: Yes conjunctivae normal PUPIL: Yes Equal, round and reactive pupils present Neck/C-Spine: COMMON NORMALS: full ROM, no lymphadenopathy, supple, no meningeal signs and no JVD Chest: COMMONS NORMALS: normal inspection of the chest and normal palpation of entire chest wall Resp: COMMON NORMALS: normal respiratory effort, No retractions, No use of accessory muscles and clear to auscultation bilaterally AUSCULTATION: clear to auscultation bilaterally Cardio: COMMON NORMALS: no JVD, regular rate, regular rhythm, S1 normal heart sound present, S2 normal heart sound present, No gallops present (Cardio), No clicks present (Cardio), No murmurs present (Cardio) and No rub (Cardio) RATE: regular rate RHYTHM: regular rhythm HEART SOUNDS: S1 normal heart sound present and S2 normal heart sound present GI: COMMON NORMALS: Normal to inspection, nondistended, normoactive bowel sounds present, Soft to palpation, non-tender, No hepatosplenomegaly present and no masses PALPATION: Yes Soft to palpation and Yes No hepatosplenomegaly present Neuro: SENSORIUM/ORIENTATION: Yes alert MENINGEAL SIGNS: Yes no meningeal signs Procedures Laceration Laceration 1: Site: scalp Size (cm): 2.0 Description: linear Depth: simple, single layer Pre-repair: wound explored and deep structures intact Skin layer closed with: other (4 margot) Course Vital Signs: Vital signs: Vital Signs Temperature 97.8 F 12/22/23 05:00 Pulse Rate 70 12/22/23 05:00 Respiratory Rate 16 12/22/23 05:00 Blood Pressure 173/85 12/22/23 05:00 Pulse Oximetry 95 12/22/23 05:00 MDM - Fall Medical Decision Making Wound was cleaned with saline, revealed about a 2 cm laceration. Wound was approximated and 4 margot were placed. Patient tolerated procedure well. Patient will be discharged from the ER margot removed in approximately 7 days. Differential Diagnosis Unlikely syncope, dislocation of shoulder region, fracture of wrist, compression fracture, concussion with loss of consciousness or concussion without loss of consciousness Medical Records I reviewed the patient's medical records. Lab Data I reviewed the patient's lab results. No radiology studies performed this visit Discharge Plan Discharge Patient Disposition: Home Clinical Impression: Fall, Laceration of scalp Condition: Stable Prescriptions: No Action digoxin 125 mcg (0.125 mg) tablet 125 mcg PO EVERY OTHER DAY sennosides-docusate sodium [Senna Plus] 8.6-50 mg tablet 1 tab-cap PO BID memantine 10 mg tablet 10 mg PO BID aspirin 81 mg tablet,chewable 81 mg PO EVERY OTHER DAY pantoprazole 40 mg tablet,delayed release (DR/EC) 40 mg PO QAM levothyroxine [Synthroid] 125 mcg tablet 125 mcg PO QAM cyproheptadine 4 mg tablet 4 mg PO QAM rosuvastatin [Crestor] 20 mg tablet 20 mg PO DAILY Qty: 30 0RF Rx Instructions: PTS STATES THE PT NEVER STARTED TAKING 01/24/23 lorazepam 0.5 mg tablet 0.25 - 0.5 mg PO DAILY PRN (Reason: Anxiety) clopidogrel 75 mg tablet 75 mg PO QAM Discharge Orders: Discharge ED (Routine); Ordered 12/22/23 Ordered By: Josafat Padilla Referrals: Matias,Kelly, MOLDER MACHINE TENDER [Primary Care Provider] - 1 week Patient Instructions: Scalp Laceration Activity Restrictions/Additional Instructions: You had a bed 2 cm laceration on your scalp. 4 margot were placed to close this wound. The margot will need to be removed in about 7 days. Please follow-up with somebody in 7 days. If your hospice nurse has the right equipment she can remove these for you. Coding Level of Care Code ED Risk Control Specialist for Kasey Donaldson
[2023-12-22 05:54] VITALS: BP 170/80; O2SAT 94
== END 2023-12-22 06:05 | disposition home or self-care (01) ==
PROVIDERS: Emergency Provider Emergency Medicine; PCP Nurse Practitioner Family
DX: S01.01XA Laceration without foreign body of scalp, initial encounter (principal); G30.9 Alzheimer's disease, unspecified; F02.80 Dementia in other diseases classified elsewhere, unspecified severity, without behavioral disturbance, psychotic disturbance, mood disturbance, and anxiety; J44.9 Chronic obstructive pulmonary disease, unspecified; I10 Essential (primary) hypertension; Z79.899 Other long term (current) drug therapy; Z79.82 Long term (current) use of aspirin; Z95.0 Presence of cardiac pacemaker; W07.XXXA Fall from chair, initial encounter
CPT/HCPCS: 12001; 99282